=== PATIENT | male | born 1980 | race African-American/Black ===

== ENCOUNTER 2022-06-18 04:39 | Inpatient (IN) | payer BC, SELFPAY ==
[2022-06-18] VITALS (22 sets, daily range): BP systolic 110–150; BP diastolic 88–111; PULSE 76–100; RESP 16–22; TEMP 36.4–36.7; O2SAT 90–100; BMI 33.7; BMI 33.6
--- NOTE | 2022-06-18 04:43 | XR_ITS ---
PROCEDURE INFORMATION: Exam: XR Chest Exam date and time: 06/18/2022 5:45 AM Age: 42 years old Clinical indication: Shortness of breath; Additional info: Volume overload TECHNIQUE: Imaging protocol: Radiologic exam of the chest. Views: 1 view. COMPARISON: No relevant prior studies available. FINDINGS: Lungs: Mild prominence and indistinctness of the pulmonary vasculature centrally. Mild prominence of the interstitium diffusely suggest mild edema. Pleural spaces: Unremarkable. No pleural effusion. No pneumothorax. Heart/Mediastinum: Cardiomegaly. Bones/joints: Unremarkable. IMPRESSION: Mild edema reflected predominantly as interstitial prominence as described above. Consider follow-up two view chest.
--- NOTE | 2022-06-18 04:43 | ECG_ITS ---
APPROVED REPORT Exam: Resting ECG HR:89 bpm ECG Measurements Heart Rate 89 AXES KS 159 P 73 QRSd 109 QRS 71 QT 444 T -68 QTc 491 Conclusion SINUS RHYTHM WITH OCCASIONAL VENTRICULAR PREMATURE COMPLEXES POSSIBLE LEFT ATRIAL ENLARGEMENT [-0.1mV P-WAVE IN V1/V2] LEFT VENTRICULAR HYPERTROPHY AND ST-T CHANGE [VOLTAGE CRITERIA PLUS ST/T ABNORMALITY] abn ecg UNCONFIRMED REPORT Electronically signed by : Burak Friedman MD 06/18/2022 21:10:38
--- NOTE | 2022-06-18 04:48 | EXP.HP ---
History of Present Illness *Admission Date: 06/18/22 *Reason for visit:: Chest pain *History of present illness: This is a 42-year-old male who presents as a transfer from [place] for further evaluation of chest pain. He does have a history of congestive heart failure and hypertension reports 2 weeks of chest pain with associated nausea vomiting. He reports the chest pain was so severe today that he decided to seek treatment emergency department. He describes the pain as burning and is associate with nausea. He denies any palpitations, lightheadedness, diaphoresis with this continued pain. He reports seeing his medical educator in March and at that time they briefly talked about cardiac stents but no further instructions were given to him after leaving the office. He does endorse some orthopnea and dyspnea on exertion. Laboratory evaluation at the outside hospital significant for high-sensitivity troponin of 100 with uptrend to 200. He was also noted to have a proBNP of 15,000. Mild electrolyte abnormalities noted with potassium of 3.5 and magnesium of 1.7. He was started on heparin drip at the outside hospital and transferred here for further evaluation. [facility] Social History Smoking Status: Never smoker alcohol intake: never current occupational status: employed Travel in the last 8 weeks: None Review of Systems Constitutional Constitutional: Reports system reviewed and no additional complaints, except as documented Eyes Eyes: Reports system reviewed and no additional complaints, except as documented ENT Ears, Nose, Mouth, and Throat: Reports system reviewed and no additional complaints, except as documented *Cardiovascular Cardiovascular: Reports system reviewed and no additional complaints, except as documented *Respiratory Respiratory: Reports system reviewed and no additional complaints, except as documented *Gastrointestinal Gastrointestinal: Reports system reviewed and no additional complaints, except as documented *Genitourinary Genitourinary: Reports system reviewed and no additional complaints, except as documented *Musculoskeletal Musculoskeletal: Reports system reviewed and no additional complaints, except as documented Integumentary/Breasts Skin/Breast: Reports system reviewed and no additional complaints, except as documented *Neurologic Neurologic: Reports system reviewed and no additional complaints, except as documented Psychiatric Psychiatric: Reports system reviewed and no additional complaints, except as documented Endocrine Endocrine: Reports system reviewed and no additional complaints, except as documented Hematologic/Lymphatic Hematologic/Lymphatic: Reports system reviewed and no additional complaints, except as documented Allergic/Immunologic Allergic/Immunologic: Reports system reviewed and no additional complaints, except as documented Meds Home Medications and Allergies New Prescriptions to Start Prescriptions: Allergies Allergy/AdvReac Type Severity Reaction Status Date / Time No Known Allergies Allergy Verified 06/18/22 04:55 Exam *Routine HEENT Exam Head: Present normocephalic and atraumatic Eye: Present EOMI and PERRL ENT: Present mucous membranes moist *Routine Neck Exam Neck: Present supple and full ROM *Routine Respiratory Exam Respiratory: Present diminished air movement *Routine Cardiovascular Exam Cardiovascular: Present RRR, Normal S1 and Normal S2 *Routine Abdominal Exam Abdominal: Present soft and normoactive bowel sounds *Routine Rectal Exam Rectal:: deferred *Routine Genitalia Exam Genitalia:: deferred *Routine Extremities Exam Extremities: Present full ROM, pulses intact and normal capillary refill Comments: No edema noted *Routine Skin Exam Skin: Present intact and warm *Routine Neurological Exam Neurological: Present alert, oriented X3 and CN II-XII intact Assessment and Plan *Assessment and plan (1) Chest pain: Status: Acute Ca
--- NOTE | 2022-06-18 05:05 | PC.NURSE ---
pt arrived to floor via stretcher @ 5180.
[2022-06-18 05:18] LABS: Basophils # 0.2 K/mm3 (0-0.2); Basophils % 1.5 % (0.1-2.0); Eosinophils # 0.3 K/mm3 (0.0-0.4); Hematocrit 48.4 % (42.0-52.0); Hemoglobin 15.9 g/dL (14.1-18.0); Lymphocytes # 3.8 K/mm3 (0.7-4.5); Lymphocytes % 38.1 % (10-50); Mean Corpuscular HGB Conc 32.8 g/dL (31.8-35.4); Mean Corpuscular Hemoglobin 32.3 pg (27.0-31.2); Mean Corpuscular Volume 98.4 fl (80-94); Mean Platelet Volume 8.8 fl (7.4-10.4); Monocytes # 0.3 K/mm3 (0.1-1.0); Monocytes % 3.1 % (1.7-9.3); Neutrophils # 5.4 K/mm3 (1.8-7.8); Neutrophils % 54.4 % (37.0-80.0); Platelet Count 248 K/mm3 (142-424); Red Blood Count 4.92 M/mm3 (4.60-6.20); Red Cell Distribution Width 16.1 % (11.5-17.5); White Blood Count 9.9 K/mm3 (4.8-10.8)
[2022-06-18 05:26] LABS: Chloride 101 mmol/L (98-107)
[2022-06-18 05:27] LABS: Sodium 135 mmol/L (136-145)
[2022-06-18 05:29] LABS: Blood Urea Nitrogen 37 mg/dl (9-20); Creatinine Clearance Estimated 60 mL/min (50-200); Estimated Glomerular Filt Rate 29 ml/min (>60); GFR (African American) 35 ML/MIN (>60)
[2022-06-18 05:30] LABS: Calcium 9.2 mg/dl (8.4-10.2); Carbon Dioxide 27 mmol/L (22.0-30.0); Chol/HDL Ratio 3.5 (1-3.5); Cholesterol 164 mg/dl (140-200); Glucose 100 mg/dl (74-100); HDL Cholesterol 47 mg/dl (40-60); Magnesium 1.8 mg/dl (1.6-2.3); Triglycerides 86 mg/dl (30-150); VLDL Cholesterol 17 mg/dL (0-40)
[2022-06-18 05:31] LABS: INR 1.23 (0.9-1.1); Prothrombin Time 13.1 seconds (10.1-12.5)
[2022-06-18 05:33] LABS: PTT Heparin (inpatient only) 57.7 Seconds (23.6-34.0)
[2022-06-18 05:39] LABS: NT Pro Brain Natriuretic Pep. 15100 pg/mL (0-125)
[2022-06-18 05:43] LABS: Troponin I 0.37 ng/ml (0.00-0.034)
--- NOTE | 2022-06-18 07:21 | CA_ITS ---
APPROVED REPORT EXAM: Comprehensive 2D, Doppler, and color-flow Echocardiogram Pull Over Machine Operator: Veronica Marquez CRT Ht: 5 ft 10 in Wt: 241lbs BSA: 2.26 BP: 141/110 mmHg Indications: CAD, Hyperlipidemia, Hypertension/HDD, SMOKER, CHF, CP 2D Dimensions LVOT 2.02 cm (M/F) 1.5-2.5 LA Volume 85.10 mL LA Volume Index 36.80 mL/m2 (M/F) 16-34 M-Mode Dimensions RVDd 3.67 cm (0.9-2.6) LA Diam 5.43 cm (1.9-4.0) LVDd 7.14 cm (3.5-5.7) Ao Diam 3.51 cm (2.0-3.7) LVDs 6.56 cm (3.5-5.7) IVSd 1.61 cm (0.6-1.1) PWd 1.33 cm (0.6-1.1) EF (Teich) 17.40% FS 8.10% EDV (Teich) 267.10 mL TAPSE 0.77 (<1.7) ESV (Teich) 220.50 mL LV Diastology E Decel Time 73.00 (160-240 msec) E/A Ratio 2.71 MED E' 2.30 (< 7 cm/sec) MED A' 3.70 cm/s E'/MED E' Ratio 28.52 (>14) LAT E' 5.40 (<10 cm/sec) LAT A' 3.20 cm/s E/LAT E' Ratio 12.15 (>14) Aortic Valve AO Peak GR. 3.50 mmHg Mitral Valve MV E Max Chris. 66.00 (40-130 cm/s) MV A Velocity 24.00 (40-130 cm/s) E/A Ratio 2.71 MV Decel. Time 73.00 (160-240 ms) MV PHT 21.00 ms Pulmonary Valve PV Peak Velocity 178.00 (50-150 cm/s) Tricuspid Valve TR P. Velocity 283.00 cm/s RAP Estimate 10.00 mmHg RVSP 42.10 mmHg Left Ventricle Left atrium is moderately enlarged, left ventricle is moderately dilated, there is severe left ventricular systolic function, estimated ejection fraction 10 to 15% left ventricle is severely globally hypokinetic, Doppler evidence of low cardiac output state is seen. Right Ventricle Right atrium and right ventricle moderately enlarged, contractility of the right ventricle is moderately reduced. Aortic Valve Aortic valve is grossly normal there is no aortic stenosis or aortic insufficiency. Mitral Valve Mitral valve is grossly normal, there is moderate mitral regurgitation. Tricuspid Valve Tricuspid valve grossly normal, there is mild to moderate tricuspid regurgitation, calculated right ventricular systolic pressure is 45 mmHg. Pulmonic Valve Pulmonic valve is poorly visualized. Pulmonic outflow velocity is reduced suggestive of low cardiac output state. Great Vessels Aortic root is normal size. Inferior vena cava is dilated without significant inspiratory collapse. Pericardium Small pericardial effusion noted. Conclusion 1. Biatrial enlargement, dilated left ventricle, severely reduced left ventricular systolic function, estimated ejection fraction 10 to 15%, left ventricle is severely globally hypokinetic, Doppler evidence of low cardiac output state seen. 2. Moderately enlarged right ventricle with moderate reduction right ventricular systolic pressure. 3. Moderate mitral and mild to moderate tricuspid regurgitation, calculated right ventricular systolic pressure is 45 mmHg. 4. Small pericardial effusion noted. 5. Inferior vena cava is mildly dilated without significant inspiratory collapse. Electronically signed by : Rizwan Thomas MD 06/19/2022 06:31:13
--- NOTE | 2022-06-18 07:34 | EXP.CARD.CON ---
History of Present Illness History of Present Illness Consult date: 06/18/22 Requesting physician: Pearl Aguirre Consult reason: chest pain Chief complaint: chest pain, Nausea, Vomiting Additional Medical History:: 1. Hypertension, treated for many years A. Renal ultrasound, [facility], 04/2022, no obstruction. Hypertensive nephropathy noted. 2. Tobacco use 1/2 to 1 pack/day for many years 3. History of congestive heart failure A. Echocardiogram, 04/2022, [facility], EF 10-15% with global hypokinesis, grade 3 diastolic dysfunction, moderate RV enlargement with pulmonary artery end-diastolic pressure of 30 mmHg. Moderate MR. 4. Coronary calcium score of 2, 04/2022, [facility]. 5. History of Pfizer COVID vaccination, early 2020 6. Hyperlipidemia, LDL 80 this admission. On statin therapy. 7. Renal insufficiency with creatinine of 2.5 and GFR of 29, 06/18/2022 History of present illness: This is a 42-year-old male who presents as a transfer from [place] for further evaluation of chest pain.? He does have a history of congestive heart failure and hypertension reports 2 weeks of chest pain with associated nausea vomiting.? He reports the chest pain was so severe today that he decided to seek treatment emergency department.? He describes the pain as burning and is associate with nausea.? He denies any palpitations, lightheadedness, diaphoresis with this continued pain.? He reports seeing his r&d lab technician in March and at that time they briefly talked about cardiac stents but no further instructions were given to him after leaving the office.? He does endorse some orthopnea and dyspnea on exertion. Laboratory evaluation at the outside hospital significant for high-sensitivity troponin of 100 with uptrend to 200.? He was also noted to have a proBNP of 15,000.? Mild electrolyte abnormalities noted with potassium of 3.5 and magnesium of 1.7.? He was started on heparin drip at the outside hospital and transferred here for further evaluation. The above per RAKESH Johnson for the hospitalist service. 42-year-old black male transferred from [facility] for further evaluation of 2-week history of continuous chest pain starting on the left side with radiating to the right shoulder. He has noticed nausea, vomiting and approximately 25 pound weight loss over the last 2 months. He has had some relief of symptoms with [id number] antacids and occasionally with food. Somewhat of a difficult historian as patient drifts off to sleep easily. He relates being hospitalized at [facility] in either March or April with a heart cath at that time with reported discussion of possible cardiac stenting but was not performed at that time. He has not followed up with any r&d lab technician since then. He maintains compliance with his medication. He relates longstanding history of hypertension and reportedly has a history of congestive heart failure. Creatinine this admission is noted to be 2.5 and patient does relate knowledge of renal dysfunction but is unable to elaborate. He does smoke about half a pack per day. Denies any significant alcohol use. Denies illegal drug use. He is not diabetic. He is unsure of any family history of coronary artery disease. EKG this admission is sinus rhythm with probable left atrial enlargement and hypertensive heart disease with evidence of LVH and repolarization abnormalities. Initial troponin here is 0.37 with a creatinine of 2.5 and Potassium of 3.0 which has been treated with oral supplementation. BNP elevated at 15,100 with chest x-ray results pending. PFS PFS Medical History Coronary artery disease Elevated troponin Hyperlipidemia Renal insufficiency Tobacco use Social History (Updated 06/18/22 @ 05:07 by Ruba Kruger RN) Smoking Status: Former smoker years smoked: 15 alcohol intake: current current occupational status: employed Travel in
--- NOTE | 2022-06-18 07:45 | PC.NURSE ---
RN aware of elevated BP @ 04:46
--- NOTE | 2022-06-18 08:35 | HMH.PHAHEP ---
[facility] Pharmacy Heparin Dosing Demographic Data Admission date:: 06/18/22 Date: 06/18/22 Time: 08:36 Allergies Allergy/AdvReac Type Severity Reaction Status Date / Time No Known Allergies Allergy Verified 06/18/22 04:55 Height: 1.8 m Weight: 109.3 kg Indication Medication therapy:: Heparin Current Active Problems (Updated 06/18/22 @ 07:45 by HENRIK Wheatley) Elevated brain natriuretic peptide (BNP) level (Acute) Tobacco use (Acute) Elevated troponin (Acute) Coronary artery disease (Acute) Hyperlipidemia (Acute) Renal insufficiency (Acute) Hypertension (Acute) Congestive heart failure (Acute) Chest pain (Acute) CVA?: No Bleeding problem?: No Kidney disease?: No PA?: No Desired PTT range:: 50-75 seconds Labs Anticoagulation Lab Results:: 06/18/22 05:05 Hgb 15.9 Hct 48.4 Plt Count 248 Monitoring Dose Monitor 1: Date: 06/18/22 Time: 05:05 PTT Result:: 57.7 Infusion Rate:: 1,300 UNITS/HR Comment:: 4,000 UNIT BOLUS GIVEN AT [place] @ 0145 BASELINE PTT 24.5 AT [place] Dose Monitor 2: Date: 06/18/22 Time: 11:00 Comment:: HEPARIN DRIP STOPPED PER HUMAN RESOURCES OFFICER Core Measures Is INR > or = 2 at discharge?: No Most Recent Labs:: Laboratory Results - last 24 hr 06/18/22 05:05: WBC 9.9, RBC 4.92, Hgb 15.9, Hct 48.4, MCV 98.4 H, MCH 32.3 H, MCHC 32.8, RDW 16.1, Plt Count 248, MPV 8.8, Neut % (Auto) 54.4, Lymph % (Auto) 38.1, [place] % (Auto) 3.1, Eos % (Auto) 3.0, Baso % (Auto) 1.5, Neut # (Auto) 5.4, Lymph # (Auto) 3.8, [place] # (Auto) 0.3, Eos # (Auto) 0.3, Baso # (Auto) 0.2 06/18/22 05:05: PT 13.1 H, INR 1.23 H, APTT 57.7 H* 06/18/22 05:05: Sodium 135 L, Potassium 3.0 L, Chloride 101, Carbon Dioxide 27, Anion Gap 10.0, BUN 37 H, Creatinine 2.50 H, Estimated Creat Clear 60, Estimated GFR 29 L, Est GFR ( Amer) 35 L, Glucose 100, Calcium 9.2, Magnesium 1.8, Troponin I 0.37 H, NT-Pro-B Natriuret Pep 51563 H, Triglycerides 86, Cholesterol 164, LDL Cholesterol Direct 80.90 L, VLDL Cholesterol 17, HDL Cholesterol 47, Cholesterol/HDL Ratio 3.5 06/18/22 05:05: Hemoglobin A1c 6.0 Were Heparin and Warfarin started on the same day?: No If not, why?: STOPPED PER HUMAN RESOURCES OFFICER
[2022-06-18 09:23] LABS: Troponin I 0.63 ng/ml (0.00-0.034)
--- NOTE | 2022-06-18 09:31 | P.CONPHA_ITS ---
Pharmacy Intervention Comments: Medication reconciliation completed via patient interview and MAR from [facility] in [place], [place]. -Nanda Stiles, PharmD Candidate 2022
--- NOTE | 2022-06-18 09:31 | PC.NURSE ---
notified cardiology of critical lab result
--- NOTE | 2022-06-18 09:49 | IR_ITS ---
APPROVED REPORT Patient Location: Inpatient Special Police: DONALD Barakat RT (R) PROCEDURES Left heart catheterization Selective coronary angiogram INDICATION New onset cardiomyopathy ejection fraction 15 to 20%, Elevated troponin Informed consent was obtained prior to the procedure. COMPLICATIONS None Estimated Blood Loss: Less than 10 ml TECHNIQUE One percent lidocaine used to anesthetize the right anterior aspect of the wrist. The right radial artery was accessed via the Seldinger technique. A 6 Cypriot sheath was placed in the right radial artery. 2.5 mg of verapamil, 800 mcg of nitroglycerin, 1mg Lidocaine and 5000 U Heparin were given through the arterial sheath. The papa catheter was also used to perform left heart catheterization and selective coronary angiogram. At the end of the procedure the sheath was removed good hemostasis was achieved using Traclet band, patient was transferred to the postop holding area in stable condition. ANGIOGRAPHIC RESULTS The left main artery Normal The left anterior descending artery Mild proximal mid vessel and distal 10% luminal irregularities The circumflex artery Nondominant with mild diffuse 10% luminal regularities The right coronary artery Dominant with mild diffuse 10% luminal irregularities The MATHEW ventriculogram reveals Not performed The left ventricular end-diastolic pressure 40 mmHg IMPRESSION Mild nonocclusive coronary artery disease Severely elevated LVEDP consistent with decompensated systolic congestive heart failure likely from hypertensive heart disease PLAN 1. Patient's renal failure is almost certainly from hypertensive cardiomyopathy. Despite this it is still reasonable to consider an outpatient CMR 2. Restart YESSICA inhibitor's 3. Patient will benefit from loop diuretics and carvedilol 4. Consider LifeVest Electronically signed by : Esau Aguirre MD 06/18/2022 11:09:42
--- NOTE | 2022-06-18 10:39 | PC.NURSE ---
off floor with pathology laboratory technologist
[2022-06-18 12:06] LABS: Troponin I 1.02 ng/ml (0.00-0.034)
[2022-06-18 12:09] LABS: PTT Heparin (inpatient only) 131.8 Seconds (23.6-34.0)
--- NOTE | 2022-06-18 13:54 | PC.NURSE ---
RN aware of elevated bp.
--- NOTE | 2022-06-18 15:13 | P.EN_ITS ---
Patient was taken to the Operations Intelligence, which showed mild nonocclusive coronary artery disease. There is severely elevated LVEDP consistent with decompensated systolic congestive heart failure likely from hypertensive heart disease. Per cardiology recommendations renal failure is almost certainly from hypertensive cardiomyopathy despite this it is still reasonable to consider outpatient c ardiac MRI. We will restart YESSICA inhibitor, will add loop diuretics and carvedilol. Consider LifeVest. Patient will benefit from GDMT. Paroxysmal atrial fibrillation -Xarelto 15 mg daily Nonischemic cardiomyopathy likely hypertensive cardiomyopathy versus dilated cardiomyopathy -We will start Entresto twice daily -Coreg 25 twice daily -Lasix 40 twice daily -YESSICA inhibitor 5 mg -LifeVest on discharge
--- NOTE | 2022-06-18 20:49 | PC.NURSE ---
dr alexandra called regarding pt complaints of right shoulder pain, tender to touch, feels like it used to when pt was in the band, pt denies chest pain, pt feels more muscular pain, order for po oxycodone 5mg po x1 dose repeated and verified.
[2022-06-19] VITALS (9 sets, daily range): BP systolic 112–130; BP diastolic 77–95; PULSE 70–92; RESP 16–20; TEMP 36.4–36.8; O2SAT 92–97; BMI 33.3
--- NOTE | 2022-06-19 05:51 | PC.NURSE ---
pt rested well after dose of oxycodone given for complaints of shoulder pain, telemetry reveals NSR with prolonged qt and t wave inversion, pt is alert and oriented x4, right radial site dressing cdi, VSS, no acute distress, VSS, no other issues or concerns at this time noted.
--- NOTE | 2022-06-19 07:47 | EXP.DC.SUM ---
General Admission date:: 06/18/22 Discharge date: 06/20/22 HPI HPI HPI: This is a 42-year-old male who presents as a transfer from [place] for further evaluation of chest pain. He does have a history of congestive heart failure and hypertension reports 2 weeks of chest pain with associated nausea vomiting. He reports the chest pain was so severe today that he decided to seek treatment emergency department. He describes the pain as burning and is associate with nausea. He denies any palpitations, lightheadedness, diaphoresis with this continued pain. He reports seeing his parts data writer in March and at that time they briefly talked about cardiac stents but no further instructions were given to him after leaving the office. He does endorse some orthopnea and dyspnea on exertion. Laboratory evaluation at the outside hospital significant for high-sensitivity troponin of 100 with uptrend to 200. He was also noted to have a proBNP of 15,000. Mild electrolyte abnormalities noted with potassium of 3.5 and magnesium of 1.7. He was started on heparin drip at the outside hospital and transferred here for further evaluation. Hospital Course Hospital Course Hospital Course: 42-year-old male with severely reduced ejection fraction, acute on chronic systolic CHF.? Admitted for management of heart failure and hypertension.? Cardiology consulted, appreciate their recommendations.? Given severity of heart failure EF less than 15%, patient met criteria for LifeVest placement.? Problems during hospitalization as follows. Acute on chronic heart failure with reduced ejection fraction Chest pain Elevated troponin Hypertensive cardiomyopathy Hyperlipidemia -Cardiology was consulted on admission. Patient was taken to Collections Director for elevated troponin and concern for NSTEMI. oted to have patent coronary arteries. Severely reduced EF however with global hypokinesis. Echo obtained showing LV EF 10 to 15%.? Global hypokinesis of left ventricle. Started on goal-directed therapy to control heart rate, blood pressure, fluid management. Plan to continue carvedilol, Entresto, Lasix and spironolactone at discharge. Given reduced ejection fraction, initiated on Xarelto. Diuresed well during hospitalization. No oxygen requirement. Severity of heart failure meeting criteria for LifeVest. Placed prior to discharge. We will have close follow-up with cardiology for further evaluation to see if patient qualifies for an AICD or if he has marked improvement in his cardiac function over the coming weeks to months. Plan to continue statin therapy for hypercholesterolemia. CKD Hypertnsive nephropathy -Creatinine stable at 2.4-2.6 during admission. Needs repeat monitoring in a week with new HTN meds. At risk for hyperkalemia. Holding on potassium supplementation at discharge. In setting of spironolactone and ARNI usage, anticipate potassium to rise. Evaluate on repeat labs at follow-up with cardiology Patient fitted for LifeVest on day of discharge. Reviewed medications. Stable for discharge home. [facility] where his car is at. Provided with meds to beds discharge Exam Data for Last 24 hours Vital signs and Labs for Last 24 Hours: Temp Pulse Resp BP Pulse Ox 98.3 F 73 17 120/77 97 06/19/22 04:00 06/19/22 04:00 06/19/22 04:00 06/19/22 04:00 06/19/22 04:00 Laboratory Results - last 24 hr 06/18/22 08:15: Troponin I 0.63 H 06/18/22 11:20: Troponin I 1.02 H 06/18/22 11:20: APTT 131.8 H* I & O for Last 24 hours: Intake & Output 06/16/22 06/17/22 06/18/22 06/19/22 23:59 23:59 23:59 23:59 Intake Total 480 / 600 120 / 120 Output Total 250 / 250 400 / 400 Balance 230 / 350 -280 / -280 Weight 109.3 kg 108.153 kg Microbiology Reports for the Last 24 Hours: Microbiology 06/18/22 13:40 Nasopharyngeal Coronavirus COVID-19 PCR - Final Constitutional C
--- NOTE | 2022-06-19 08:15 | EXP.CARD.PN ---
Subjective Subjective Date: 06/19/22 Time: 08:16 Principal diagnosis: HFrEF Interval history: 42-year-old black male in bed in no acute distress states he is feeling much better after diuresis yesterday. Cardiac catheterization revealed nonischemic cardiomyopathy consistent with hypertensive cardiomyopathy. Ejection fraction 10-15%. We will pursue LifeVest approval today. Exam Data for Last 24 hours Vital signs and Labs for Last 24 Hours: Temp Pulse Resp BP Pulse Ox 97.7 F 79 16 130/92 H 96 06/19/22 07:49 06/19/22 07:49 06/19/22 07:49 06/19/22 07:49 06/19/22 07:49 Laboratory Results - last 24 hr 06/18/22 08:15: Troponin I 0.63 H 06/18/22 11:20: Troponin I 1.02 H 06/18/22 11:20: APTT 131.8 H* I & O for Last 24 hours: Intake & Output 06/16/22 06/17/22 06/18/22 06/19/22 11:59 11:59 11:59 11:59 Intake Total 960 / 960 Output Total 250 / 250 400 / 400 Balance -250 / -250 560 / 560 Weight 240 lb 15.444 oz 238 lb 7 oz Microbiology Reports for the Last 24 Hours: Microbiology 06/18/22 13:40 Nasopharyngeal Coronavirus COVID-19 PCR - Final Constitutional Constitutional: no acute distress *Routine Respiratory Exam Respiratory: Present decreased breath sounds and CTA bilaterally *Routine Cardiovascular Exam Cardiovascular: Present RRR; Absent murmur, gallop or rubs *Routine Extremities Exam Extremities: Absent cyanosis, clubbing or edema *Routine Neurological Exam Neurological: Present alert and oriented X3 Progress Note: A&P Assessment and plan (1) Renal insufficiency: Status: Acute (2) Elevated troponin: Status: Acute (3) Elevated brain natriuretic peptide (BNP) level: Status: Acute (4) Hyperlipidemia: Status: Acute (5) Coronary artery disease: Status: Acute (6) Tobacco use: Status: Acute (7) Acute on chronic HFrEF (heart failure with reduced ejection fraction): Status: Acute (8) Hypertensive heart disease: Status: Acute Assessment and Plan Assessment and Plan for All Diagnoses:: 1.? HFrEF, on Coreg, Entresto, Lasix and spironolactone. Pt is on anticoagulation with Xarelto for possible history of PAF but is also recommended due to markedly low EF. We will attempt to get LifeVest approved today due to EF of 10-15% with increased risk of sudden cardiac . 2.? Renal insufficiency secondary to hypertensive nephropathy. 3.? Hypertension with hypertensive heart disease 4. possible peptic ulcer disease.? Recommend starting PPI therapy. 5.? Hyperlipidemia, continue statin therapy 6.? Tobacco use, cessation recommended 7. Non-obstructive CAD, on ASA.
[2022-06-19 09:39] LABS: Basophils # 0.1 K/mm3 (0-0.2); Basophils % 1.1 % (0.1-2.0); Eosinophils # 0.2 K/mm3 (0.0-0.4); Eosinophils % 2.8 % (0.1-12.0); Hematocrit 47.3 % (42.0-52.0); Hemoglobin 15.6 g/dL (14.1-18.0); Lymphocytes % 37.8 % (10-50); Mean Corpuscular HGB Conc 32.9 g/dL (31.8-35.4); Mean Corpuscular Hemoglobin 32.9 pg (27.0-31.2); Mean Corpuscular Volume 99.9 fl (80-94); Mean Platelet Volume 9.5 fl (7.4-10.4); Monocytes # 0.3 K/mm3 (0.1-1.0); Monocytes % 3.5 % (1.7-9.3); Neutrophils # 4.3 K/mm3 (1.8-7.8); Neutrophils % 54.8 % (37.0-80.0); Platelet Count 242 K/mm3 (142-424); Red Blood Count 4.74 M/mm3 (4.60-6.20); Red Cell Distribution Width 16.1 % (11.5-17.5); White Blood Count 7.8 K/mm3 (4.8-10.8)
[2022-06-19 09:57] LABS: Chloride 102 mmol/L (98-107); Potassium 3.2 mmoL/L (3.5-5.1); Sodium 138 mmol/L (136-145)
[2022-06-19 10:00] LABS: Alanine Aminotransferase 34 U/L (12-78); Albumin Level 3.3 g/dl (3.5-5.0); Albumin/Globulin Ratio 1.4 (1.1-1.8); Alkaline Phosphatase 121 U/L (38-126); Anion Gap 11.2 mEq/L (5-15); Aspartate Amino Transferase 48 U/L (17-59); Bilirubin,Total 1.9 mg/dl (0.2-1.3); Blood Urea Nitrogen 36 mg/dl (9-20); Calcium 9.2 mg/dl (8.4-10.2); Carbon Dioxide 28 mmol/L (22.0-30.0); Creatinine Clearance Estimated 62 mL/min (50-200); Estimated Glomerular Filt Rate 30 ml/min (>60); GFR (African American) 36 ML/MIN (>60); Globulin 2.3 g/dL (1.3-3.2); Glucose 116 mg/dl (74-100); Phosphorous 3.7 mg/dl (2.5-4.5); Total Protein,Serum 5.6 g/dl (6.3-8.2)
[2022-06-19 10:01] LABS: Magnesium 1.7 mg/dl (1.6-2.3)
--- NOTE | 2022-06-19 14:52 | PC.NURSE ---
PT IS RESTING IN BED. ALERT AND ORIENTED X4. PT HAS BEEN AMBULATING TO THE BATHROOM AND AROUND THE ROOM WITH NO COMPLAINTS OF CP OR SOA. LUNG SOUNDS DIMINISHED. ABDOMEN SOFT/NON TENDER WITH ACTIVE BOWEL SOUNDS. PT IS STILL WAITING IN LIFE VEST BEFORE DISCHARGE. WILL CONTINUE TO MONITOR.
--- NOTE | 2022-06-19 16:07 | EXP.ACUTE.PN ---
Subjective *Date: 06/19/22 *Time: 17:17 Interval history: Patient feels better this morning. Denies chest pain. Shortness of breath with exertion but this is not new, at baseline. No oxygen requirement. Hemodynamically stable with well-controlled blood pressure. Denies nausea, vomiting, diarrhea. Afebrile. Medical Exam Vital signs and Labs for Last 24 Hours: Vital Signs Temp Pulse Pulse Resp BP Pulse Ox 06/19/22 15:17 97.6 F 91 H 17 113/80 96 06/19/22 12:00 78 06/19/22 11:06 97.9 F 76 18 121/84 92 L 06/19/22 08:00 76 06/19/22 07:49 97.7 F 79 16 130/92 H 96 06/19/22 00:00 85 06/18/22 20:00 90 06/19/22 04:00 75 06/19/22 04:00 98.3 F 73 17 120/77 97 06/18/22 20:00 94 L 06/19/22 00:00 98.0 F 92 H 18 128/95 H 95 06/18/22 20:00 97.8 F 98 H 18 139/97 H 94 L 06/18/22 18:25 84 18 135/95 H 94 L 06/18/22 17:25 90 20 125/96 H 93 L 06/18/22 16:25 98.1 F 81 18 110/96 H 93 L Intake and Output 06/19/22 06/19/22 06/19/22 07:59 15:59 23:59 Intake Total 480 / 840 360 / 840 Output Total 400 / 400 0 / 400 Balance 80 / 440 360 / 440 Intake: Intake, Oral Amount 480 / 840 360 / 840 Output: Output, Urine Amount 400 / 400 0 / 400 Other: Number of Unmeasured Voids 1 1 Weight 108.153 kg Patient Weight 06/19/22 23:59 Weight 108.153 kg Laboratory Results - last 24 hr 06/19/22 09:20: WBC 7.8, RBC 4.74, Hgb 15.6, Hct 47.3, MCV 99.9 H, MCH 32.9 H, MCHC 32.9, RDW 16.1, Plt Count 242, MPV 9.5, Neut % (Auto) 54.8, Lymph % (Auto) 37.8, [place] % (Auto) 3.5, Eos % (Auto) 2.8, Baso % (Auto) 1.1, Neut # (Auto) 4.3, Lymph # (Auto) 3.0, [place] # (Auto) 0.3, Eos # (Auto) 0.2, Baso # (Auto) 0.1 06/19/22 09:20: Sodium 138, Potassium 3.2 L, Chloride 102, Carbon Dioxide 28, Anion Gap 11.2, BUN 36 H, Creatinine 2.40 H, Estimated Creat Clear 62, Estimated GFR 30 L, Est GFR ( Amer) 36 L, Glucose 116 H, Calcium 9.2, Phosphorus 3.7, Magnesium 1.7, Total Bilirubin 1.9 H, AST 48, ALT 34, Alkaline Phosphatase 121, Total Protein 5.6 L, Albumin 3.3 L, Globulin 2.3, Albumin/Globulin Ratio 1.4 I & O for Labs for Last 24 Hours: Intake & Output 06/16/22 06/17/22 06/18/22 06/19/22 23:59 23:59 23:59 23:59 Intake Total 480 / 600 840 / 840 Output Total 250 / 250 400 / 400 Balance 230 / 350 440 / 440 Weight 109.3 kg 108.153 kg Microbiology Reports for the Last 24 Hours: Microbiology 06/18/22 13:40 Nasopharyngeal Coronavirus COVID-19 PCR - Final Constitutional: Present no acute distress and obese Head: Present atraumatic and normocephalic ENT: Present normal exam Neck: Present normal inspection Respiratory: Present CTA bilaterally and normal respiratory effort; Absent accessory muscle use, rhonchi, wheezes or crackles Cardiac: Present Reg Rate and Rhythm GI: Present soft and normal bowel sounds; Absent distention or tenderness Extremities: Present normal inspection and full ROM; Absent edema Skin: Present intact; Absent erythema Neuro: Present Grossly Intact, alert, awake, oriented x 3 and moves all extremities Assessment and Plan *Assessment and plan (1) Acute on chronic HFrEF (heart failure with reduced ejection fraction): Status: Acute Category: Medical Code(s): I50.23 - Acute on chronic systolic (congestive) heart failure (2) Chest pain: Status: Acute Category: Medical Code(s): R07.9 - Chest pain, unspecified (3) Tobacco use: Status: Chronic Category: Social Hx Code(s): Z72.0 - Tobacco use (4) Hyperlipidemia: Status: Chronic Category: Medical Code(s): E78.5 - Hyperlipidemia, unspecified (5) Hypertensive heart disease: Status: Chronic Category: Medical Code(s): I11.9 - Hypertensive heart disease without heart failure (6) Class 1 obesity: Status: Chronic Category: Medical Code(s): E66.
[2022-06-20] VITALS: BP 118/86; PULSE 80; PULSE 83; RESP 18; TEMP 36.7; O2SAT 98
[2022-06-20 04:00] VITALS: BP 137/97; PULSE 78; PULSE 80; RESP 17; TEMP 36.7; O2SAT 96
[2022-06-20 06:08] VITALS: BMI 33.3
[2022-06-20 07:35] LABS: Basophils # 0.1 K/mm3 (0-0.2); Basophils % 1.2 % (0.1-2.0); Eosinophils # 0.1 K/mm3 (0.0-0.4); Eosinophils % 1.3 % (0.1-12.0); Hematocrit 51.2 % (42.0-52.0); Hemoglobin 16.1 g/dL (14.1-18.0); Lymphocytes # 2.4 K/mm3 (0.7-4.5); Lymphocytes % 29.3 % (10-50); Mean Corpuscular HGB Conc 31.5 g/dL (31.8-35.4); Mean Corpuscular Hemoglobin 32.7 pg (27.0-31.2); Mean Corpuscular Volume 103.7 fl (80-94); Mean Platelet Volume 9.6 fl (7.4-10.4); Monocytes # 0.3 K/mm3 (0.1-1.0); Monocytes % 3.9 % (1.7-9.3); Neutrophils # 5.3 K/mm3 (1.8-7.8); Neutrophils % 64.2 % (37.0-80.0); Platelet Count 257 K/mm3 (142-424); Red Blood Count 4.94 M/mm3 (4.60-6.20); Red Cell Distribution Width 16.1 % (11.5-17.5); White Blood Count 8.2 K/mm3 (4.8-10.8)
[2022-06-20 07:48] LABS: Alanine Aminotransferase 31 U/L (12-78); Albumin Level 3.3 g/dl (3.5-5.0); Albumin/Globulin Ratio 1.3 (1.1-1.8); Alkaline Phosphatase 121 U/L (38-126); Anion Gap 7.6 mEq/L (5-15); Aspartate Amino Transferase 43 U/L (17-59); Bilirubin,Total 1.7 mg/dl (0.2-1.3); Blood Urea Nitrogen 39 mg/dl (9-20); Calcium 8.9 mg/dl (8.4-10.2); Carbon Dioxide 24 mmol/L (22.0-30.0); Chloride 105 mmol/L (98-107); Creatinine Clearance Estimated 57 mL/min (50-200); Estimated Glomerular Filt Rate 27 ml/min (>60); GFR (African American) 33 ML/MIN (>60); Globulin 2.6 g/dL (1.3-3.2); Glucose 110 mg/dl (74-100); Phosphorous 3.4 mg/dl (2.5-4.5); Potassium 3.6 mmoL/L (3.5-5.1); Sodium 133 mmol/L (136-145); Total Protein,Serum 5.9 g/dl (6.3-8.2)
[2022-06-20 08:00] VITALS: BP 134/98; PULSE 78; PULSE 80; RESP 18; TEMP 36.6; O2SAT 97
--- NOTE | 2022-06-20 09:42 | EXP.CARD.PN ---
Subjective Subjective Date: 06/20/22 Time: 09:42 Principal diagnosis: HFrEF Interval history: 42-year-old black male head bedside in no acute distress. No complaints of chest pain, pressure or tightness. Telemetry shows no further arrhythmias overnight. Patient is anxious to go home. Exam Data for Last 24 hours Vital signs and Labs for Last 24 Hours: Temp Pulse Resp BP Pulse Ox 97.8 F 78 18 134/98 H 97 06/20/22 08:00 06/20/22 08:00 06/20/22 08:00 06/20/22 08:00 06/20/22 08:00 Laboratory Results - last 24 hr 06/19/22 09:20: Sodium 138, Potassium 3.2 L, Chloride 102, Carbon Dioxide 28, Anion Gap 11.2, BUN 36 H, Creatinine 2.40 H, Estimated Creat Clear 62, Estimated GFR 30 L, Est GFR ( Amer) 36 L, Glucose 116 H, Calcium 9.2, Phosphorus 3.7, Magnesium 1.7, Total Bilirubin 1.9 H, AST 48, ALT 34, Alkaline Phosphatase 121, Total Protein 5.6 L, Albumin 3.3 L, Globulin 2.3, Albumin/Globulin Ratio 1.4 06/20/22 07:24: WBC 8.2, RBC 4.94, Hgb 16.1, Hct 51.2, MCV 103.7 H, MCH 32.7 H, MCHC 31.5 L, RDW 16.1, Plt Count 257, MPV 9.6, Neut % (Auto) 64.2, Lymph % (Auto) 29.3, [place] % (Auto) 3.9, Eos % (Auto) 1.3, Baso % (Auto) 1.2, Neut # (Auto) 5.3, Lymph # (Auto) 2.4, [place] # (Auto) 0.3, Eos # (Auto) 0.1, Baso # (Auto) 0.1 06/20/22 07:24: Sodium 133 L, Potassium 3.6, Chloride 105, Carbon Dioxide 24, Anion Gap 7.6, BUN 39 H, Creatinine 2.60 H, Estimated Creat Clear 57, Estimated GFR 27 L, Est GFR ( Amer) 33 L, Glucose 110 H, Calcium 8.9, Phosphorus 3.4, Total Bilirubin 1.7 H, AST 43, ALT 31, Alkaline Phosphatase 121, Total Protein 5.9 L, Albumin 3.3 L, Globulin 2.6, Albumin/Globulin Ratio 1.3 I & O for Last 24 hours: Intake & Output 06/17/22 06/18/22 06/19/22 06/20/22 11:59 11:59 11:59 11:59 Intake Total 960 / 960 840 / 840 Output Total 250 / 250 400 / 400 600 / 600 Balance -250 / -250 560 / 560 240 / 240 Weight 240 lb 15.444 oz 238 lb 7 oz 238 lb 2 oz Constitutional Constitutional: no acute distress *Routine Respiratory Exam Respiratory: Present CTA bilaterally *Routine Cardiovascular Exam Cardiovascular: Present RRR *Routine Extremities Exam Extremities: Absent cyanosis, clubbing or edema *Routine Neurological Exam Neurological: Present alert, oriented X3 and CN II-XII intact Progress Note: A&P Assessment and plan (1) Acute on chronic HFrEF (heart failure with reduced ejection fraction): Status: Acute (2) Tobacco use: Status: Chronic (3) Hyperlipidemia: Status: Chronic (4) Hypertensive heart disease: Status: Chronic (5) Class 1 obesity: Status: Chronic (6) Nonsustained ventricular tachycardia: Status: Acute (7) Renal insufficiency: Status: Acute (8) Elevated troponin: Status: Acute (9) Elevated brain natriuretic peptide (BNP) level: Status: Acute (10) Coronary artery disease: Status: Acute Assessment and Plan Assessment and Plan for All Diagnoses:: 1.? HFrEF, on Coreg, Entresto, Lasix and spironolactone. Pt is on anticoagulation with Xarelto for possible history of PAF but is also recommended due to markedly low EF. Awaiting for LifeVest to be approved due to EF of 10-15% with increased risk of sudden cardiac . 2.? Renal insufficiency secondary to hypertensive nephropathy. 3.? Hypertension with hypertensive heart disease 4. possible peptic ulcer disease.? On PPI therapy. 5.? Hyperlipidemia, continue statin therapy 6.? Tobacco use, cessation recommended 7. Non-obstructive CAD, on ASA. 8. Nonsustained ventricular tachycardia, on carvedilol therapy. Discussed the case with electrophysiology who recommended continue medical therapy with LifeVest. Patient does not meet requirements for ICD implantation at this time
[2022-06-20 11:47] VITALS: BP 133/98; PULSE 79; RESP 16; TEMP 36.9; O2SAT 96
[2022-06-20 12:00] VITALS: PULSE 80
--- NOTE | 2022-06-20 13:32 | P.CONPHA_ITS ---
Pharmacy Intervention Comments: Discharge counseling completed at bedside with patient. Discussed new medications (aspirin, carvedilol increased dose, sacubatril-valsartan, xarelto, and spironolactone), continued medications, and discontinued medications. Overviewed indication and possible side effects/mitigation strategies for each n ew medication. Patient verbalized understanding and has no questions or concerns at this time.
--- NOTE | 2022-06-20 16:06 | PC.NURSE ---
Addendum entered by Cassia Huddleston RN 06/20/22 16:08: this information was called to [employer] Original Note: 2 valid phone numbers and address needed for [employer] for lifevest: [phone] [facility] [place] [facility] [address]
--- NOTE | 2022-06-21 13:25 | CARE MANAGER ---
Spoke with patient for post-discharge phone interiew, patient states that he is well. He did indicate that the insurance company denied his lifevest, he is talking with Dr. Aguirre office regarding this. Patient is aware of his follow-up appointment.
== END 2022-06-20 16:15 | disposition home or self-care (01) | DRG 286 ==
PROVIDERS: Internal Medicine; Nurse Practitioner Acute Care; Admitting Provider Student in an Organized Health Care Education/Training Program; Visit Provider Student in an Organized Health Care Education/Training Program
PROC: 4A023N7 Measurement of Cardiac Sampling and Pressure, Left Heart, Percutaneous Approach (ICD-10-PCS; principal; 2022-06-18 13:00)
DX: I50.23 Acute on chronic systolic (congestive) heart failure; I13.0 Hypertensive heart and chronic kidney disease with heart failure and stage 1 through stage 4 chronic kidney disease, or unspecified chronic kidney disease; I47.20 Ventricular tachycardia, unspecified; I25.118 Atherosclerotic heart disease of native coronary artery with other forms of angina pectoris; I42.9 Cardiomyopathy, unspecified; E78.5 Hyperlipidemia, unspecified; N18.9 Chronic kidney disease, unspecified; Z79.01 Long term (current) use of anticoagulants; Z79.899 Other long term (current) drug therapy; I48.0 Paroxysmal atrial fibrillation
CPT/HCPCS: 36415; 71045; 80048; 80053; 80061; 83036; 83735; 83880; 84100; 84484; 85025; 85610; 85730; 93005; 93306; 93458; 99152; C1725; C1769; C9803; J1644; J2405; Q9967; U0003; U0005

== ENCOUNTER 2022-07-13 10:25 | Observation (INO) | payer BC, SELFPAY ==
[2022-07-13] VITALS (12 sets, daily range): BP systolic 129–146; BP diastolic 88–104; PULSE 78–86; RESP 17–18; TEMP 36.4–37.7; O2SAT 98–100; BMI 33.6; BMI 34.3
--- NOTE | 2022-07-13 10:28 | HMH.EDGENADL ---
Discharge Plan Disposition Patient Disposition: Admitted as Observation Condition: Good Chief Complaint: Skin/Abscess/Foreign Body Prescriptions Prescriptions: No Action carvedilol 25 mg tablet 37.5 mg PO BID furosemide 40 mg Tablet 80 mg PO DAILY atorvastatin 20 mg Tablet 20 mg PO HS sennosides-docusate sodium 8.6-50 mg Tablet 1 tab PO DAILYP PRN (Reason: Constipation) aspirin 81 mg Tablet,Delayed Release (Dr/Ec) 81 mg PO DAILY Qty: 30 0RF spironolactone 25 mg Tablet 25 mg PO DAILY 30 Days Qty: 30 0RF Xarelto 15 mg Tablet 15 mg PO QPMWITHMEAL 30 Days Qty: 30 0RF Entresto 97-103 mg tablet 1 tab PO BID Qty: 60 0RF Referrals Follow up/Referrals: Provider,Referral, MD [Primary Care Provider] - See instructions Clinical Impressions Clinical Impression: Cellulitis, Hypokalemia Instructions Patient Instructions: DI for Skin Abscess Discharge ED Provider: Benito Rivas General Adult HPI General Chief complaint: Skin/Abscess/Foreign Body Stated complaint: leg swelling Time Seen by Provider: 07/13/22 10:29 Mode of Arrival: EMS Source of Information: Patient Limitations: No Limitations History of Present Illness HPI narrative: 42yo M with extensive past medical history presents to the emergency department secondary to 5 days of left lower extremity swelling, pain, erythema. No history of blood clots/DVT/pulmonary embolism and maintained on DOAC. Reports good medical compliance. States pain was worse today and decided to be evaluated. No shortness of breath or chest pain. No recent febrile illness. Related Data Home Medications Medication Instructions Recorded Confirmed atorvastatin 20 mg tablet 20 mg PO HS High cholesterol 06/18/22 07/02/22 furosemide 40 mg tablet 80 mg PO DAILY Fluid 06/18/22 07/02/22 sennosides 8.6 mg-docusate sodium 1 tab PO DAILYP PRN Constipation 06/18/22 07/02/22 50 mg tablet carvedilol 25 mg tablet 37.5 mg PO BID heart 07/13/22 07/13/22 Previous Rx's Medication Instructions Recorded aspirin 81 mg tablet,delayed 81 mg PO DAILY #30 tabs 06/19/22 release rivaroxaban 15 mg tablet (Xarelto) 15 mg PO QPMWITHMEAL 30 days #30 06/19/22 tabs sacubitril 97 mg-valsartan 103 mg 1 tab PO BID #60 tabs 06/19/22 tablet (Entresto) spironolactone 25 mg tablet 25 mg PO DAILY 30 days #30 tabs 06/19/22 Allergies Allergy/AdvReac Type Severity Reaction Status Date / Time No Known Allergies Allergy Verified 07/02/22 12:09 [facility] Disclaimer: The information contained in this section may have been updated after the patient was seen, as this information can be updated by other users. Medical History Coronary artery disease Elevated troponin Hyperlipidemia Renal insufficiency Tobacco use Surgical History History of cardiac catheterization Social History Smoking Status: Former smoker years smoked: 15 alcohol intake: current current occupational status: employed Travel in the last 8 weeks: None ROS Obtained: Yes Systems reviewed as appropriate & no additional complaints except as documented Physical Exam General General appearance: alert and in no apparent distress Head Head exam: atraumatic Eye Eye exam: Present normal appearance and PERRL ENT ENT exam: Present normal exam Neck Neck exam: Present normal inspection and trachea midline Chest Chest inspection: Present symmetric chest wall rise Respiratory Respiratory exam: Present normal lung sounds bilaterally Cardiovascular Cardiovascular exam: Present regular rate and normal rhythm Abdominal Exam Abdominal exam: Present soft; Absent distention Extremities Exam Extremities exam: Present other (2+ edema right lower extremity. 3+ edema left lower extremity. Tender to palpate left lower extremity. Erythema and warmth left lower extremity) Neurolo
--- NOTE | 2022-07-13 10:53 | CA_ITS ---
FINAL REPORT TECHNIQUE: Ultrasound images of the deep venous system were obtained from the left groin to the calf veins. CLINICAL HISTORY: edema, hot to touch,tender, Xarelto , smoker FINDINGS: The deep venous system is normally compressible. Normal flow is identified. There are enlarged left inguinal lymph nodes, nonspecific. IMPRESSION: No evidence of left lower extremity DVT. Reviewed, Interpreted and Dictated by Kingston Kulkarni III, MD Transcribed by Everette Augustine Authenticated and [facility]
--- NOTE | 2022-07-13 11:08 | PC.NURSE ---
Helped patient into gown for US
[2022-07-13 11:34] LABS: Basophils % 0.3 % (0.1-2.0); Eosinophils # 0.1 K/mm3 (0.0-0.4); Hematocrit 43.2 % (42.0-52.0); Hemoglobin 14.1 g/dL (14.1-18.0); Lymphocytes # 1.5 K/mm3 (0.7-4.5); Lymphocytes % 10.7 % (10-50); Mean Corpuscular HGB Conc 32.6 g/dL (31.8-35.4); Mean Corpuscular Hemoglobin 32.9 pg (27.0-31.2); Mean Corpuscular Volume 100.7 fl (80-94); Mean Platelet Volume 9.5 fl (7.4-10.4); Monocytes # 0.3 K/mm3 (0.1-1.0); Monocytes % 2.4 % (1.7-9.3); Neutrophils # 12.1 K/mm3 (1.8-7.8); Neutrophils % 85.6 % (37.0-80.0); Platelet Count 212 K/mm3 (142-424); Red Blood Count 4.29 M/mm3 (4.60-6.20); White Blood Count 14.1 K/mm3 (4.8-10.8)
[2022-07-13 11:38] LABS: Chloride 103 mmol/L (98-107); Potassium 3.1 mmoL/L (3.5-5.1); Sodium 135 mmol/L (136-145)
--- NOTE | 2022-07-13 11:40 | PC.NURSE ---
CV lab staff at for doppler
[2022-07-13 11:41] LABS: Alanine Aminotransferase 36 U/L (12-78); Albumin Level 3.4 g/dl (3.5-5.0); Albumin/Globulin Ratio 1.2 (1.1-1.8); Alkaline Phosphatase 209 U/L (38-126); Anion Gap 13.1 mEq/L (5-15); Aspartate Amino Transferase 67 U/L (17-59); Bilirubin,Total 3.5 mg/dl (0.2-1.3); Blood Urea Nitrogen 36 mg/dl (9-20); Carbon Dioxide 22 mmol/L (22.0-30.0); Creatinine Clearance Estimated 56 mL/min (50-200); Estimated Glomerular Filt Rate 26 ml/min (>60); GFR (African American) 32 ML/MIN (>60); Globulin 2.9 g/dL (1.3-3.2); MANUAL DIFFERENTIAL MANUAL DIFFERENTIAL (MANUAL DIFF); Total Protein,Serum 6.3 g/dl (6.3-8.2)
[2022-07-13 11:42] LABS: Glucose 88 mg/dl (74-100)
[2022-07-13 11:50] LABS: Lymphocytes % 9 % (10-50); Monocytes % 2 % (2-9); Neutrophils % 89 % (42-76); Total Cells Counted 100
[2022-07-13 11:51] LABS: Anisocytosis 1+; Hypochromasia 1+; Macrocytosis 1+; Ovalocytes 1+; Platelet Estimate Normal
--- NOTE | 2022-07-13 12:09 | PC.NURSE ---
on the phone with
--- NOTE | 2022-07-13 12:11 | PC.NURSE ---
notified care management of admission
--- NOTE | 2022-07-13 12:19 | PC.NURSE ---
Notified floor of pt admission, pt will be going to room 208
[2022-07-13 12:29] LABS: Coronavirus 19, PCR Not Detected (NotDetected); Influenza A, PCR Not Detected (NotDetected); Influenza B, PCR Not Detected (NotDetected)
--- NOTE | 2022-07-13 13:20 | PC.NURSE ---
contacted hospitalist phone, dr. metcalf in a meeting, will call back
--- NOTE | 2022-07-13 13:25 | PC.NURSE ---
pt eating lunch tray
--- NOTE | 2022-07-13 13:54 | PC.NURSE ---
spoke with dr. metcalf at this time, states will be placing admission orders
--- NOTE | 2022-07-13 13:57 | PC.NURSE ---
attempted to call report, second floor nurse states will call back
--- NOTE | 2022-07-13 14:12 | PC.NURSE ---
report called to tung salinas on second floor
--- NOTE | 2022-07-13 14:43 | PC.NURSE ---
arrived to floor by wheelchair
--- NOTE | 2022-07-13 15:26 | XR_ITS ---
FINAL REPORT CLINICAL HISTORY: CHF COMPARISON: 06/18/2022 FINDINGS: SINGLE-VIEW CHEST There is cardiomegaly. There is an elevated right hemidiaphragm. There are persistent but improved mild basilar opacities, favor atelectasis. There is no pneumothorax. IMPRESSION: Persistent but improved basilar opacities. Reviewed, Interpreted and Dictated by Kingston Kulkarni III, MD Transcribed by Celina Conn Authenticated and [facility]
--- NOTE | 2022-07-13 15:42 | EXP.HP ---
History of Present Illness *Admission Date: 07/13/22 *Reason for visit:: Left leg pain and swelling *History of present illness: Patient is a 42-year-old -Cypriot male with past medical history of systolic heart failure (EF 10-15%), CKD (baseline 2.5), prediabetes who comes to the ER for left leg swelling and pain for the past 5 days. Patient reports pain has gotten progressively worse to the point where he cannot stand on his leg. He denies any fever, chills, fatigue, he does have occasional nausea. Patient's only other complaint is some pain in his right shoulder. [facility] Disclaimer: The information contained in this section may have been updated after the patient was seen, as this information can be updated by other users. Medical History Coronary artery disease Elevated troponin Hyperlipidemia Renal insufficiency Tobacco use Surgical History History of cardiac catheterization Family History (Updated 07/13/22 @ 15:02 by Magali Mattson RN) Other Diabetes Family history of acute congestive heart failure Family history of hyperlipidemia Family history of hypertension Family history of myocardial infarction Social History (Updated 07/13/22 @ 15:03 by Magali Mattson RN) Smoking Status: Former smoker years smoked: 15 alcohol intake: current current occupational status: employed Travel in the last 8 weeks: None Review of Systems Constitutional Constitutional: Denies body ache(s), Denies chills, Denies fatigue, Denies fever(s), Denies lethargy and Denies weakness Eyes Eyes: Denies change in vision ENT Ears, Nose, Mouth, and Throat: Denies change in voice and Denies dysphagia *Cardiovascular Cardiovascular: Denies chest pain, Denies chest pain at rest, Denies chest pain with activity, Reports claudication, Denies dyspnea, Denies dyspnea on exertion, Denies edema, Denies irregular heart rhythm, Reports leg edema and Denies palpitations *Respiratory Respiratory: Denies chest congestion, Denies cough, Denies dyspnea, Denies dyspnea on exertion and Denies hemoptysis *Gastrointestinal Gastrointestinal: Denies abdominal pain, Denies diarrhea, Denies dyspepsia, Denies dysphagia, Denies heartburn, Denies loose stools and Reports nausea Integumentary/Breasts Skin/Breast: Denies change in pigmentation, Reports dry skin and Denies new lesions Comments: Dry, flaking skin on soles of both feet *Neurologic Neurologic: Denies abnormal movements, Denies abnormal speech, Denies behavioral changes, Denies confusion, Denies convulsions, Denies localized weakness, Denies other visual disturbances and Denies weakness Psychiatric Psychiatric: Denies anxiety, Denies behavioral changes, Denies confusion, Denies depression and Denies mood swings Endocrine Endocrine: Denies fatigue and Denies palpitations Meds Home Medications and Allergies Home Medications Medication Instructions Recorded Confirmed Type atorvastatin 20 mg tablet 20 mg PO HS High cholesterol 06/18/22 07/13/22 History furosemide 40 mg tablet 80 mg PO DAILY Fluid 06/18/22 07/13/22 History sennosides 8.6 mg-docusate sodium 1 tab PO DAILYP PRN Constipation 06/18/22 07/13/22 History 50 mg tablet aspirin 81 mg tablet,delayed 81 mg PO DAILY heart health 07/13/22 07/13/22 History release carvedilol 25 mg tablet 25 mg PO BID heart 07/13/22 07/13/22 History rivaroxaban 15 mg tablet (Xarelto) 15 mg PO QPMWITHMEAL blood thinner 07/13/22 07/13/22 History sacubitril 97 mg-valsartan 103 mg 1 tab PO BID Heart failure 07/13/22 07/13/22 History tablet (Entresto) spironolactone 25 mg tablet 25 mg PO DAILY diuretic 07/13/22 07/13/22 History New Prescriptions to Start Prescriptions: Allergies Allergy/AdvReac Type Severity Reaction Status Date / Time No Known Allergies Allergy Verified 07/02/22 12:09 Exam Data for Last 24 hours Vital signs and Labs for Last 24 Hours: Temp Pulse Resp
[2022-07-13 17:15] LABS: Troponin I 0.03 ng/ml (0.00-0.034)
--- NOTE | 2022-07-13 20:34 | EXP.PN ---
Subjective *Date: 07/14/22 *Time: 15:03 Interval history: leg pain level 8 , shoulder pain 6 of 10 Exam Data for Last 24 hours Vital signs and Labs for Last 24 Hours: Temp Pulse Resp BP Pulse Ox 99.8 F H 86 18 129/88 99 07/13/22 15:02 07/13/22 16:03 07/13/22 15:02 07/13/22 15:02 07/13/22 15:02 Laboratory Results - last 24 hr 07/13/22 11:26: WBC 14.1 H, RBC 4.29 L, Hgb 14.1, Hct 43.2, MCV 100.7 H, MCH 32.9 H, MCHC 32.6, RDW 17.0, Plt Count 212, MPV 9.5, Neut % (Auto) 85.6 H, Lymph % (Auto) 10.7, [place] % (Auto) 2.4, Eos % (Auto) 1.0, Baso % (Auto) 0.3, Neut # (Auto) 12.1 H, Lymph # (Auto) 1.5, [place] # (Auto) 0.3, Eos # (Auto) 0.1, Baso # (Auto) 0.0, Total Counted 100, Neutrophils % (Manual) 89 H, Lymphocytes % (Manual) 9 L, Monocytes % (Manual) 2, Platelet Estimate Normal, Hypochromasia 1+, Anisocytosis 1+, Macrocytosis 1+, Ovalocytes 1+ 07/13/22 11:26: Sodium 135 L, Potassium 3.1 L, Chloride 103, Carbon Dioxide 22, Anion Gap 13.1, BUN 36 H, Creatinine 2.70 H, Estimated Creat Clear 56, Estimated GFR 26 L, Est GFR ( Amer) 32 L, Glucose 88, Calcium 9.0, Total Bilirubin 3.5 H, AST 67 H, ALT 36, Alkaline Phosphatase 209 H, Total Protein 6.3, Albumin 3.4 L, Globulin 2.9, Albumin/Globulin Ratio 1.2 07/13/22 12:22: SARS-CoV-2 (PCR) Not detected, Influenza A Untype (PCR) Not detected, Influenza Type B (PCR) Not detected 07/13/22 16:21: Troponin I 0.03 I & O for Last 24 hours: Intake & Output 12/07/11/22 07/12/22 07/13/22 23:59 23:59 23:59 23:59 Intake Total 360 / 360 Output Total 250 / 250 Balance 110 / 110 Weight 111.697 kg *Routine Extremities Exam Extremities: Present edema, full ROM and tenderness Comments: left leg . warm to hot worse in lower portion. pain from mid thigh to foot. . also some left shoulder pain . *Routine Skin Exam Skin: Present intact and dry Comments: left lower leg , no signs of injury or lacerations. skin intact . he is a dark skin male so not able to evaluate erythema well Additional findings Additional findings: alert friendly , good historian, we reviewed history looking for source of leg pain. none found. Assessment and Plan *Assessment and plan (1) Lower extremity pain, left: Status: Acute Category: Medical Code(s): M79.605 - Pain in left leg Plan will use tylenol , and recheck for pain level in one hour Rounded on patient after nurse practitioner. Personally examined and interviewed patient. Agree with exam findings and plan of care findings as documented.
--- NOTE | 2022-07-13 21:30 | PC.NURSE ---
PATIENT C/O RIGHT SHOULDER PAIN THROBBING CONTINUOUS 12/29. ALSO C/O THROBBING PAIN IN LEFT LEG 02/28. RECIEVED TYLENOL EARLIER ON DAY SHIFT WHICH HELPED SOME. HENRIK EASTMAN NOTIFIED AND CAME TO SEE PATIENT. ORDER TO CONTINUE TYLENOL FOR NOW.
[2022-07-14] VITALS (7 sets, daily range): BP systolic 118–141; BP diastolic 76–105; PULSE 60–82; RESP 16–20; TEMP 36.4–37.1; O2SAT 94–100; BMI 35.2
--- NOTE | 2022-07-14 06:44 | PC.NURSE ---
patient reporting right shoulder pain and pain in LLE. RECEIVED RELIEF WITH MORHINE 2 MG IVP AT 0130.
[2022-07-14 07:38] LABS: Basophils # 0.1 K/mm3 (0-0.2); Basophils % 0.4 % (0.1-2.0); Eosinophils # 0.2 K/mm3 (0.0-0.4); Eosinophils % 1.7 % (0.1-12.0); Hematocrit 42.6 % (42.0-52.0); Lymphocytes % 15.4 % (10-50); Mean Corpuscular HGB Conc 32.8 g/dL (31.8-35.4); Mean Corpuscular Hemoglobin 32.9 pg (27.0-31.2); Mean Corpuscular Volume 100.1 fl (80-94); Mean Platelet Volume 9.5 fl (7.4-10.4); Monocytes # 0.5 K/mm3 (0.1-1.0); Monocytes % 3.5 % (1.7-9.3); Neutrophils # 10.2 K/mm3 (1.8-7.8); Neutrophils % 79.1 % (37.0-80.0); Platelet Count 204 K/mm3 (142-424); Red Blood Count 4.26 M/mm3 (4.60-6.20); White Blood Count 12.8 K/mm3 (4.8-10.8)
--- NOTE | 2022-07-14 07:46 | ECG_ITS ---
APPROVED REPORT Exam: Resting ECG HR:79 bpm ECG Measurements Heart Rate 79 AXES CA 167 P 60 QRSd 117 QRS -14 QT 436 T 183 QTc 471 Conclusion SINUS RHYTHM Left atrial abnormality Nonspecific IV conduction delay ABNORMAL ECG UNCONFIRMED REPORT Electronically signed by : Burak Friedman MD 07/14/2022 12:10:42
[2022-07-14 09:01] LABS: Chloride 103 mmol/L (98-107); Potassium 3.3 mmoL/L (3.5-5.1); Sodium 135 mmol/L (136-145)
[2022-07-14 09:03] LABS: Blood Urea Nitrogen 32 mg/dl (9-20); Creatinine Clearance Estimated 65 mL/min (50-200); Estimated Glomerular Filt Rate 30 ml/min (>60); GFR (African American) 36 ML/MIN (>60)
[2022-07-14 09:04] LABS: Alanine Aminotransferase 28 U/L (12-78); Albumin/Globulin Ratio 1.2 (1.1-1.8); Alkaline Phosphatase 162 U/L (38-126); Anion Gap 14.3 mEq/L (5-15); Aspartate Amino Transferase 41 U/L (17-59); Bilirubin,Total 2.8 mg/dl (0.2-1.3); Calcium 8.9 mg/dl (8.4-10.2); Carbon Dioxide 21 mmol/L (22.0-30.0); Globulin 2.5 g/dL (1.3-3.2); Glucose 81 mg/dl (74-100); Magnesium 1.9 mg/dl (1.6-2.3); Total Protein,Serum 5.5 g/dl (6.3-8.2)
--- NOTE | 2022-07-14 09:45 | PC.NURSE ---
Notified Dr. Aguirre of consult on patient.
--- NOTE | 2022-07-14 11:58 | EXP.PHA.CONS ---
Pharmacy Consult Date: 07/14/22 Time: 11:58 Referring provider: DR. OLSEN Reason for Consult:: VANCOMYCIN DOSING Allergies Allergy/AdvReac Type Severity Reaction Status Date / Time No Known Allergies Allergy Verified 07/02/22 12:09 Home Medications Medication Instructions Recorded Confirmed Type atorvastatin 20 mg tablet 20 mg PO HS High cholesterol 06/18/22 07/13/22 History furosemide 40 mg tablet 80 mg PO DAILY Fluid 06/18/22 07/13/22 History sennosides 8.6 mg-docusate sodium 1 tab PO DAILYP PRN Constipation 06/18/22 07/13/22 History 50 mg tablet aspirin 81 mg tablet,delayed 81 mg PO DAILY heart health 07/13/22 07/13/22 History release carvedilol 25 mg tablet 25 mg PO BID heart 07/13/22 07/13/22 History rivaroxaban 15 mg tablet (Xarelto) 15 mg PO QPMWITHMEAL blood thinner 07/13/22 07/13/22 History sacubitril 97 mg-valsartan 103 mg 1 tab PO BID Heart failure 07/13/22 07/13/22 History tablet (Entresto) spironolactone 25 mg tablet 25 mg PO DAILY diuretic 07/13/22 07/13/22 History New Prescriptions to Start Prescriptions: Height: 1.8 m Weight: 114.305 kg Laboratory Results:: Laboratory Results - last 24 hr 07/13/22 12:22: SARS-CoV-2 (PCR) Not detected, Influenza A Untype (PCR) Not detected, Influenza Type B (PCR) Not detected 07/13/22 16:21: Troponin I 0.03 07/14/22 07:28: WBC 12.8 H, RBC 4.26 L, Hgb 14.0 L, Hct 42.6, MCV 100.1 H, MCH 32.9 H, MCHC 32.8, RDW 17.0, Plt Count 204, MPV 9.5, Neut % (Auto) 79.1, Lymph % (Auto) 15.4, [place] % (Auto) 3.5, Eos % (Auto) 1.7, Baso % (Auto) 0.4, Neut # (Auto) 10.2 H, Lymph # (Auto) 2.0, [place] # (Auto) 0.5, Eos # (Auto) 0.2, Baso # (Auto) 0.1 07/14/22 07:28: Sodium 135 L, Potassium 3.3 L, Chloride 103, Carbon Dioxide 21 L, Anion Gap 14.3, BUN 32 H, Creatinine 2.40 H, Estimated Creat Clear 65, Estimated GFR 30 L, Est GFR ( Amer) 36 L, Glucose 81, Calcium 8.9, Magnesium 1.9, Total Bilirubin 2.8 H, AST 41 D, ALT 28, Alkaline Phosphatase 162 H, Total Protein 5.5 L, Albumin 3.0 L D, Globulin 2.5, Albumin/Globulin Ratio 1.2 Medical History: Medical History Coronary artery disease Elevated troponin Hyperlipidemia Renal insufficiency Tobacco use Assessment and Plan Assessment and plan all Dx Assessment and Plan for all problems:: Pharmacokinetic dosing service Age: 42 yo Serum creatinine: 2.4 mg/dL Height: 70.9 Inches Weight (kg): 114 Assessment: IBW (kg): 75.07 Dosing wt(kg): 114 Estimated Creatinine clearance (ml/min): 43.0 CRCL method: Cockcroft and Gault using ibw(default). Drug selected: Vancomycin Loading dose (mg): 0 Vd (liters): 91.2 (factor used: 0.8 L/kg) Ray (hr-1): 0.040 Half life (hrs): 17.33 Recommended dose: 1500 mg Interval: 18 hrs Infusion time (hrs): 2.0 Predicted peak (mcg/mL): 30.8 Predicted trough (mcg/mL): 16.24 Total body weight is being used for vancomycin dosing. Recommendations: Give Vancomycin 1500 mg q 18 hrs with an expected Cpeak of 30.8 mcg/ml and an expected Ctrough of 16.24 mcg/ml ----Vanco only - ignore for aminoglycosides----- CLvanco= 3.65 L/hr AUC 0-24 /KAYLEE Data: KAYLEE 0.5 mcg/mL: AUC/KAYLEE: 1095.9 KAYLEE 1.0 mcg/mL: AUC/KAYLEE: 547.9 --------- KAYLEE 1.5 mcg/mL: AUC/KAYLEE: 365.3 KAYLEE 2.0 mcg/mL: AUC/KAYLEE: 274.0
--- NOTE | 2022-07-14 13:50 | CT_ITS ---
PROCEDURE INFORMATION: Exam: CT Left Lower Extremity Without Contrast; Lower Leg Exam date and time: 07/14/2022 3:10 PM Age: 42 years old Clinical indication: Cellulitis; Lower leg; Left; Additional info: Cellulitis, R/O nec fasc TECHNIQUE: Imaging protocol: CT of the Left lower extremity without contrast was performed. Exam focused on the lower leg. Radiation optimization: All CT scans at this facility use at least one of these dose optimization techniques: automated exposure control; mA and/or kV adjustment per patient size (includes targeted exams where dose is matched to clinical indication); or iterative reconstruction. COMPARISON: CA VENOUS DOPPLER LE LT 07/13/2022 11:31 AM FINDINGS: Bones/joints: No acute fracture. Soft tissues: Circumferential soft tissue stranding about the leg. Muscles are normal in bulk. No subcutaneous air to suggest necrotizing fasciitis. No discrete collection. IMPRESSION: Lower extremity cellulitis. No subcutaneous air to suggest necrotizing fasciitis.
--- NOTE | 2022-07-14 13:50 | CT_ITS ---
PROCEDURE INFORMATION: Exam: CT Left Lower Extremity Without Contrast; Thigh Exam date and time: 07/14/2022 3:03 PM Age: 42 years old Clinical indication: Cellulitis; Thigh; Left; Additional info: R/O nec fasc TECHNIQUE: Imaging protocol: CT of the Left lower extremity without contrast was performed. Exam focused on the thigh. Radiation optimization: All CT scans at this facility use at least one of these dose optimization techniques: automated exposure control; mA and/or kV adjustment per patient size (includes targeted exams where dose is matched to clinical indication); or iterative reconstruction. COMPARISON: CA VENOUS DOPPLER LE LT 07/13/2022 11:31 AM FINDINGS: Bones/joints: No acute fracture. Soft tissues: There is diffuse cellulitis encompassing the anterolateral thigh. No discrete collection. No subcutaneous emphysema. Intraperitoneal space: Large amount of free fluid in the pelvic region. IMPRESSION: 1. Diffuse cellulitis. No discrete collection. No subcutaneous emphysema to suggest necrotizing fasciitis. 2. Large amount of free fluid in the pelvis
--- NOTE | 2022-07-14 16:03 | EXP.PN ---
Subjective *Date: 07/14/22 *Time: 16:03 Interval history: Patient reports feeling about the same today compared to yesterday. His leg still hurts, slightly less swollen. Exam Data for Last 24 hours Vital signs and Labs for Last 24 Hours: Temp Pulse Resp BP Pulse Ox 98.3 F 77 16 140/92 H 99 07/14/22 12:00 07/14/22 12:00 07/14/22 12:00 07/14/22 12:00 07/14/22 12:00 Laboratory Results - last 24 hr 07/13/22 16:21: Troponin I 0.03 07/14/22 07:28: WBC 12.8 H, RBC 4.26 L, Hgb 14.0 L, Hct 42.6, MCV 100.1 H, MCH 32.9 H, MCHC 32.8, RDW 17.0, Plt Count 204, MPV 9.5, Neut % (Auto) 79.1, Lymph % (Auto) 15.4, [place] % (Auto) 3.5, Eos % (Auto) 1.7, Baso % (Auto) 0.4, Neut # (Auto) 10.2 H, Lymph # (Auto) 2.0, [place] # (Auto) 0.5, Eos # (Auto) 0.2, Baso # (Auto) 0.1 07/14/22 07:28: Sodium 135 L, Potassium 3.3 L, Chloride 103, Carbon Dioxide 21 L, Anion Gap 14.3, BUN 32 H, Creatinine 2.40 H, Estimated Creat Clear 65, Estimated GFR 30 L, Est GFR ( Amer) 36 L, Glucose 81, Calcium 8.9, Magnesium 1.9, Total Bilirubin 2.8 H, AST 41 D, ALT 28, Alkaline Phosphatase 162 H, Total Protein 5.5 L, Albumin 3.0 L D, Globulin 2.5, Albumin/Globulin Ratio 1.2 I & O for Last 24 hours: Intake & Output 07/11/22 07/12/22 07/13/22 07/14/22 23:59 23:59 23:59 23:59 Intake Total 360 / 360 1677 / 1677 Output Total 750 / 750 650 / 650 Balance -390 / -390 1027 / 1027 Weight 111.697 kg 114.305 kg Constitutional Constitutional: no acute distress, obese, chronically ill appearing and cooperative *Routine HEENT Exam Head: Present normocephalic and atraumatic Eye: Present EOMI and PERRL ENT: Present mucous membranes moist *Routine Neck Exam Neck: Present supple; Absent JVD *Routine Respiratory Exam Respiratory: Present CTA bilaterally; Absent accessory muscle use, rales, rhonchi or wheezes *Routine Cardiovascular Exam Cardiovascular: Present RRR; Absent murmur, gallop or rubs *Routine Abdominal Exam Abdominal: Present soft and normoactive bowel sounds; Absent tenderness, rebound or guarding *Routine Rectal Exam Patient deferred: visual exam *Routine Exam Patient deferred: penile exam *Routine Extremities Exam Extremities: Present edema (Left leg up to mid/proximal thigh), full ROM, pulses intact and tenderness (Left leg); Absent cyanosis or clubbing *Routine Skin Exam Skin: Present intact; Absent cyanosis *Routine Neurological Exam Neurological: Present alert, oriented X3 and moving all extremities; Absent altered mental status or tremors Routine Psychiatric Exam Psychiatric: Present normal affect, normal thought process, cooperative, good insight and good judgment Assessment and Plan *Assessment and plan (1) Acute on chronic HFrEF (heart failure with reduced ejection fraction): Status: Acute Category: Medical Code(s): I50.23 - Acute on chronic systolic (congestive) heart failure (2) Chest pain: Status: Resolved Category: Medical Code(s): R07.9 - Chest pain, unspecified (3) Tobacco use: Status: Chronic Category: Social Hx Code(s): Z72.0 - Tobacco use (4) Hyperlipidemia: Status: Chronic Category: Medical Code(s): E78.5 - Hyperlipidemia, unspecified (5) Hypertensive heart disease: Status: Chronic Category: Medical Code(s): I11.9 - Hypertensive heart disease without heart failure (6) Class 1 obesity: Status: Chronic Category: Medical Code(s): E66.9 - Obesity, unspecified Plan 42-year-old male with systolic heart failure (EF 10-15%), CKD, and prediabetes who is admitted for left leg cellulitis: //Left Leg cellulitis - Erythema difficult to discern in setting of very dark pigmentation. - Almost entire left leg is warm, swollen, and tender. - DVT ruled out in ED although pt is on xarelto. - BCx x 2 drawn in ED. - Cont vanc to cover MRSA. - CT Left leg ordered to help r/o nec fasc. //Systolic Heart Failure
[2022-07-14 16:52] LABS: NT Pro Brain Natriuretic Pep. 21700 pg/mL (0-125)
[2022-07-15] VITALS (8 sets, daily range): BP systolic 139–153; BP diastolic 74–106; PULSE 70–90; RESP 17–18; TEMP 36.6–37.2; O2SAT 91–99; BMI 35.5
--- NOTE | 2022-07-15 04:04 | PC.NURSE ---
0230 pt called out and stated his iv was out, noted iv to left ac was accidently pulled out, catheter intact., new iv started right forearm x2 sticks., pt tolerated well. #20g started right forearm.
--- NOTE | 2022-07-15 05:53 | PC.NURSE ---
pt restless through the night with lle pain and tenderness, pt was offered morphine for pain rated 6/10 and refused, pt only wanted tylenol, lle with edema and elevated up on pillow, generalized edema to rle, no other issues noted at this time, vss, telemetry reveals nsr with frequent pvcs, pt is alert and oriented x4.
[2022-07-15 08:06] LABS: Basophils # 0.1 K/mm3 (0-0.2); Basophils % 0.4 % (0.1-2.0); Eosinophils # 0.3 K/mm3 (0.0-0.4); Hematocrit 40.9 % (42.0-52.0); Hemoglobin 13.5 g/dL (14.1-18.0); Lymphocytes # 2.3 K/mm3 (0.7-4.5); Lymphocytes % 17.5 % (10-50); Mean Corpuscular HGB Conc 33.1 g/dL (31.8-35.4); Mean Corpuscular Hemoglobin 32.2 pg (27.0-31.2); Mean Corpuscular Volume 97.3 fl (80-94); Mean Platelet Volume 9.7 fl (7.4-10.4); Monocytes # 0.6 K/mm3 (0.1-1.0); Monocytes % 4.6 % (1.7-9.3); Neutrophils # 9.9 K/mm3 (1.8-7.8); Neutrophils % 75.5 % (37.0-80.0); Platelet Count 257 K/mm3 (142-424); Red Blood Count 4.21 M/mm3 (4.60-6.20); Red Cell Distribution Width 16.9 % (11.5-17.5); White Blood Count 13.2 K/mm3 (4.8-10.8)
[2022-07-15 08:10] LABS: Chloride 99 mmol/L (98-107); Sodium 133 mmol/L (136-145)
[2022-07-15 08:13] LABS: Alanine Aminotransferase 29 U/L (12-78); Albumin Level 3.3 g/dl (3.5-5.0); Albumin/Globulin Ratio 1.2 (1.1-1.8); Alkaline Phosphatase 192 U/L (38-126); Anion Gap 12.9 mEq/L (5-15); Aspartate Amino Transferase 29 U/L (17-59); Bilirubin,Total 2.6 mg/dl (0.2-1.3); Blood Urea Nitrogen 29 mg/dl (9-20); Carbon Dioxide 24 mmol/L (22.0-30.0); Creatinine Clearance Estimated 66 mL/min (50-200); Estimated Glomerular Filt Rate 30 ml/min (>60); GFR (African American) 36 ML/MIN (>60); Globulin 2.8 g/dL (1.3-3.2); Total Protein,Serum 6.1 g/dl (6.3-8.2)
[2022-07-15 08:14] LABS: Calcium 9.1 mg/dl (8.4-10.2); Glucose 91 mg/dl (74-100)
[2022-07-15 08:19] LABS: C-Reactive Protein 150.8 mg/L (0-4)
[2022-07-15 08:40] LABS: Potassium 2.9 mmoL/L (3.5-5.1)
[2022-07-15 08:57] LABS: Erythrocyte Sedimentation Rate 49 mm/hr (0-15)
--- NOTE | 2022-07-15 12:08 | PC.NURSE ---
Dr. Wong and Dr. Aguirre aware of K of 2.8, and po K ordered per sep.
--- NOTE | 2022-07-15 13:38 | EXP.PN ---
Subjective *Date: 07/15/22 *Time: 13:38 Interval history: No acute events overnight. Patient reports feeling a little better today, the pain in his left leg is a little better. Exam Data for Last 24 hours Vital signs and Labs for Last 24 Hours: Temp Pulse Resp BP Pulse Ox 97.8 F 81 17 139/99 H 96 07/15/22 11:38 07/15/22 11:38 07/15/22 11:38 07/15/22 11:38 07/15/22 11:38 Laboratory Results - last 24 hr 07/14/22 07:28: NT-Pro-B Natriuret Pep 35339 H 07/15/22 07:26: WBC 13.2 H, RBC 4.21 L, Hgb 13.5 L, Hct 40.9 L, MCV 97.3 H, MCH 32.2 H, MCHC 33.1, RDW 16.9, Plt Count 257 D, MPV 9.7, Neut % (Auto) 75.5, Lymph % (Auto) 17.5, [place] % (Auto) 4.6, Eos % (Auto) 2.0, Baso % (Auto) 0.4, Neut # (Auto) 9.9 H, Lymph # (Auto) 2.3, [place] # (Auto) 0.6, Eos # (Auto) 0.3, Baso # (Auto) 0.1 07/15/22 07:26: Sodium 133 L, Potassium 2.9 L*, Chloride 99, Carbon Dioxide 24, Anion Gap 12.9, BUN 29 H, Creatinine 2.40 H, Estimated Creat Clear 66, Estimated GFR 30 L, Est GFR ( Amer) 36 L, Glucose 91, Calcium 9.1, Total Bilirubin 2.6 H, AST 29 D, ALT 29, Alkaline Phosphatase 192 H, C-Reactive Protein 150.8 H, Total Protein 6.1 L, Albumin 3.3 L, Globulin 2.8, Albumin/Globulin Ratio 1.2 07/15/22 07:26: ESR 49 H I & O for Last 24 hours: Intake & Output 07/12/22 07/13/22 07/14/22 07/15/22 23:59 23:59 23:59 23:59 Intake Total 360 / 360 1917 / 1917 1841 / 1841 Output Total 750 / 750 1300 / 1600 1250 / 1250 Balance -390 / -390 617 / 317 591 / 591 Weight 111.697 kg 114.305 kg 115.203 kg Microbiology Reports for the Last 24 Hours: Microbiology 07/13/22 12:30 Blood Blood Culture - Preliminary NO GROWTH AFTER 48 HOURS Constitutional Constitutional: no acute distress, obese, chronically ill appearing and cooperative *Routine HEENT Exam Head: Present normocephalic and atraumatic Eye: Present EOMI and PERRL ENT: Present mucous membranes moist *Routine Neck Exam Neck: Present supple; Absent JVD *Routine Respiratory Exam Respiratory: Present CTA bilaterally and normal respiratory effort; Absent accessory muscle use, rales, respiratory distress, rhonchi or wheezes *Routine Cardiovascular Exam Cardiovascular: Present RRR; Absent murmur, gallop or rubs *Routine Abdominal Exam Abdominal: Present soft and normoactive bowel sounds; Absent tenderness, rebound or guarding *Routine Rectal Exam Patient deferred: visual exam *Routine Exam Patient deferred: penile exam *Routine Extremities Exam Extremities: Present edema (Left leg up to knee), full ROM, pulses intact and tenderness (Left leg up to knee); Absent cyanosis or clubbing *Routine Skin Exam Skin: Present intact and warm; Absent cyanosis *Routine Neurological Exam Neurological: Present alert, oriented X3 and moving all extremities; Absent altered mental status or tremors Routine Psychiatric Exam Psychiatric: Present normal affect, normal thought process, cooperative, good insight and good judgment Assessment and Plan *Assessment and plan (1) Acute on chronic HFrEF (heart failure with reduced ejection fraction): Status: Acute Category: Medical Code(s): I50.23 - Acute on chronic systolic (congestive) heart failure (2) Chest pain: Status: Resolved Category: Medical Code(s): R07.9 - Chest pain, unspecified (3) Tobacco use: Status: Chronic Category: Social Hx Code(s): Z72.0 - Tobacco use (4) Hyperlipidemia: Status: Chronic Category: Medical Code(s): E78.5 - Hyperlipidemia, unspecified (5) Hypertensive heart disease: Status: Chronic Category: Medical Code(s): I11.9 - Hypertensive heart disease without heart failure (6) Class 1 obesity: Status: Chronic Category: Medical Code(s): E66.9 - Obesity, unspecified Plan 42-year-old male with systolic heart failure (EF 10-15%), CKD, and prediabetes who is admitted for left leg cellulitis
--- NOTE | 2022-07-15 17:48 | PC.NURSE ---
No acute changes this shift. Pt has refused pain meds and has no c/i's at this time. Has had over a liter of u/o this shift. VSS.CB in reach.
--- NOTE | 2022-07-15 21:52 | PC.NURSE ---
Pt states he takes Entresto once a day at home, and refuses to take 2100 dose.
[2022-07-16] VITALS: BP 140/77; PULSE 80; PULSE 84; RESP 18; TEMP 37; O2SAT 100
[2022-07-16 01:03] LABS: Vancomycin,Trough 15.5 ug/mL (5.0-10.0)
--- NOTE | 2022-07-16 01:32 | PC.NURSE ---
Spoke with [facility] at this time. Vanc trough 15.5 reported, orders received to give current scheduled dose of vanc.
[2022-07-16 03:26] VITALS: BP 126/82; PULSE 82; RESP 18; TEMP 37.1; O2SAT 96; BMI 34.9
[2022-07-16 04:00] VITALS: PULSE 80
[2022-07-16 06:00] LABS: Vancomycin,Peak 28.8 ug/ml (11-39)
[2022-07-16 06:04] LABS: Chloride 103 mmol/L (98-107); Sodium 136 mmol/L (136-145)
[2022-07-16 06:05] LABS: Potassium 3.4 mmoL/L (3.5-5.1)
[2022-07-16 06:07] LABS: Alanine Aminotransferase 28 U/L (12-78); Albumin/Globulin Ratio 1.1 (1.1-1.8); Alkaline Phosphatase 188 U/L (38-126); Anion Gap 13.4 mEq/L (5-15); Aspartate Amino Transferase 35 U/L (17-59); Bilirubin,Total 2.5 mg/dl (0.2-1.3); Blood Urea Nitrogen 26 mg/dl (9-20); Carbon Dioxide 23 mmol/L (22.0-30.0); Creatinine Clearance Estimated 82 mL/min (50-200); Estimated Glomerular Filt Rate 39 ml/min (>60); GFR (African American) 48 ML/MIN (>60); Globulin 2.7 g/dL (1.3-3.2); Total Protein,Serum 5.7 g/dl (6.3-8.2)
[2022-07-16 06:08] LABS: Glucose 80 mg/dl (74-100)
[2022-07-16 06:13] LABS: C-Reactive Protein 148.3 mg/L (0-4)
[2022-07-16 07:24] LABS: Basophils # 0.1 K/mm3 (0-0.2); Basophils % 0.7 % (0.1-2.0); Eosinophils # 0.4 K/mm3 (0.0-0.4); Eosinophils % 2.3 % (0.1-12.0); Hematocrit 43.2 % (42.0-52.0); Hemoglobin 14.5 g/dL (14.1-18.0); Lymphocytes # 2.4 K/mm3 (0.7-4.5); Lymphocytes % 16.2 % (10-50); Mean Corpuscular HGB Conc 33.5 g/dL (31.8-35.4); Mean Corpuscular Hemoglobin 32.9 pg (27.0-31.2); Mean Corpuscular Volume 98.4 fl (80-94); Mean Platelet Volume 9.5 fl (7.4-10.4); Monocytes # 0.7 K/mm3 (0.1-1.0); Monocytes % 4.6 % (1.7-9.3); Neutrophils # 11.5 K/mm3 (1.8-7.8); Neutrophils % 76.2 % (37.0-80.0); Platelet Count 284 K/mm3 (142-424); Red Blood Count 4.39 M/mm3 (4.60-6.20)
[2022-07-16 07:26] LABS: MANUAL DIFFERENTIAL MANUAL DIFFERENTIAL (MANUAL DIFF)
[2022-07-16 07:48] LABS: Lymphocytes % 9 % (10-50); Monocytes % 8 % (2-9); Neutrophils % 83 % (42-76); Platelet Estimate Normal; RBC Morphology Normal; Total Cells Counted 100
[2022-07-16 07:49] LABS: Erythrocyte Sedimentation Rate 41 mm/hr (0-15)
[2022-07-16 08:00] VITALS: BP 137/88; PULSE 77; PULSE 85; RESP 20; TEMP 36.9; O2SAT 99
--- NOTE | 2022-07-16 08:51 | EXP.PHA.CONS ---
Pharmacy Consult Date: 07/16/22 Time: 08:51 Referring provider: DR. OLSEN Reason for Consult:: VANCOMYCIN PEAK/TROUGH LEVELS Allergies Allergy/AdvReac Type Severity Reaction Status Date / Time No Known Allergies Allergy Verified 07/02/22 12:09 Home Medications Medication Instructions Recorded Confirmed Type atorvastatin 20 mg tablet 20 mg PO HS High cholesterol 06/18/22 07/13/22 History furosemide 40 mg tablet 80 mg PO DAILY Fluid 06/18/22 07/13/22 History sennosides 8.6 mg-docusate sodium 1 tab PO DAILYP PRN Constipation 06/18/22 07/13/22 History 50 mg tablet aspirin 81 mg tablet,delayed 81 mg PO DAILY heart health 07/13/22 07/13/22 History release carvedilol 25 mg tablet 25 mg PO BID heart 07/13/22 07/13/22 History rivaroxaban 15 mg tablet (Xarelto) 15 mg PO QPMWITHMEAL blood thinner 07/13/22 07/13/22 History sacubitril 97 mg-valsartan 103 mg 1 tab PO BID Heart failure 07/13/22 07/13/22 History tablet (Entresto) spironolactone 25 mg tablet 25 mg PO DAILY diuretic 07/13/22 07/13/22 History New Prescriptions to Start Prescriptions: Height: 1.8 m Weight: 113.2 kg Laboratory Results:: Laboratory Results - last 24 hr 07/15/22 07:26: ESR 49 H 07/16/22 00:30: Vancomycin Trough 15.5 H 07/16/22 05:15: Sodium 136, Potassium 3.4 L, Chloride 103, Carbon Dioxide 23, Anion Gap 13.4, BUN 26 H, Creatinine 1.90 H D, Estimated Creat Clear 82, Estimated GFR 39 L, Est GFR ( Amer) 48 L D, Glucose 80, Calcium 9.0, Total Bilirubin 2.5 H, AST 35, ALT 28, Alkaline Phosphatase 188 H, C-Reactive Protein 148.3 H, Total Protein 5.7 L, Albumin 3.0 L, Globulin 2.7, Albumin/Globulin Ratio 1.1 07/16/22 05:15: Vancomycin Peak 28.8 07/16/22 07:10: WBC 15.0 H, RBC 4.39 L, Hgb 14.5, Hct 43.2, MCV 98.4 H, MCH 32.9 H, MCHC 33.5, RDW 17.0, Plt Count 284, MPV 9.5, Neut % (Auto) 76.2, Lymph % (Auto) 16.2, [place] % (Auto) 4.6, Eos % (Auto) 2.3, Baso % (Auto) 0.7, Neut # (Auto) 11.5 H, Lymph # (Auto) 2.4, [place] # (Auto) 0.7, Eos # (Auto) 0.4, Baso # (Auto) 0.1, Total Counted 100, Neutrophils % (Manual) 83 H, Lymphocytes % (Manual) 9 L, Monocytes % (Manual) 8, Platelet Estimate Normal, RBC Morphology Normal 07/16/22 07:10: ESR 41 H Medical History: Medical History Coronary artery disease Elevated troponin Hyperlipidemia Renal insufficiency Tobacco use Assessment and Plan Assessment and plan all Dx Assessment and Plan for all problems:: BASED ON PATIENT FACTORS AND VANCOMYCIN TROUGH/PEAK LEVELS OF 15.5/28.8 RESPECTIVELY, CONTINUE CURRENT DOSE OF VANCOMYCIN AT 1,500MG IV EVERY 18 HOURS. -JUVENTINO DEXTERD
[2022-07-16 12:00] VITALS: BP 136/99; PULSE 79; RESP 16; TEMP 36.6; O2SAT 98
--- NOTE | 2022-07-16 12:42 | US_ITS ---
FINAL REPORT CLINICAL HISTORY: current smoker, HTN, HLD, previous angioplasty, bilateral rest pain FINDINGS: COMPLETE ANKLE/BRACHIAL INDICES BILATERAL Complete ankle brachial indices were obtained. The right ZOHRA is 1.3. The left ZOHRA is 1.2. IMPRESSION: ABIs are within normal limits bilaterally. Reviewed, Interpreted and Dictated by Kingston Kulkarni III, MD Transcribed by Celina Conn Authenticated and [facility]
--- NOTE | 2022-07-16 14:53 | EXP.DC.SUM ---
General Admission date:: 07/13/22 Discharge date: 07/16/22 HPI HPI HPI: Patient is a 42-year-old -[place] male with past medical history of systolic heart failure (EF 10-15%), CKD (baseline 2.5), prediabetes who comes to the ER for left leg swelling and pain for the past 5 days. Patient reports pain has gotten progressively worse to the point where he cannot stand on his leg. He denies any fever, chills, fatigue, he does have occasional nausea. Patient's only other complaint is some pain in his right shoulder. Hospital Course Hospital Course Hospital Course: 42-year-old male with systolic heart failure (EF 10-15%), CKD, and prediabetes who was admitted on 07/13/2022 for left leg cellulitis and REJI on CKD: //Left Leg cellulitis on day of admission was very significant, from sole of his foot to mid thigh. Cellulitis gradually improved with vancomycin and diuresis. Given his chronic kidney disease, patient will be discharged with clindamycin and home Lasix will be doubled from 80 mg p.o. daily to twice daily. Patient still has a moderate amount of pain and he will therefore be discharged with tramadol 50 mg p.o. twice daily #10. CT Left leg shows cellulitis, no overt sign of nec fasc. //Systolic Heart Failure. - BNP was 21,700 on 07/14; recently was 15,100 on 06/18/22. Pt denies chest pain or shortness of breath at this time. ECHO 06/18/22 EF 10-15%, global hypokinesis. Cardiology consulted, appreciate their recommendations. Cont Coreg, Entresto. Lasix increased to 80 mg IV TID and spironolactone increased to 100 mg PO qd by cardiology. //REJI on CKD - Cr 2.7 -> 2.4 -> 2.4 -> 1.9 during admission. Baseline appears to be about 2.5. //Tinea pedis - OTC med prescribed on discharge. //Prediabetes - A1c 6.0 on 06/18/22 Exam Data for Last 24 hours Vital signs and Labs for Last 24 Hours: Temp Pulse Resp BP Pulse Ox 98.4 F 85 20 137/88 99 07/16/22 08:00 07/16/22 08:00 07/16/22 08:00 07/16/22 08:00 07/16/22 08:00 Laboratory Results - last 24 hr 07/16/22 00:30: Vancomycin Trough 15.5 H 07/16/22 05:15: Sodium 136, Potassium 3.4 L, Chloride 103, Carbon Dioxide 23, Anion Gap 13.4, BUN 26 H, Creatinine 1.90 H D, Estimated Creat Clear 82, Estimated GFR 39 L, Est GFR ( Amer) 48 L D, Glucose 80, Calcium 9.0, Total Bilirubin 2.5 H, AST 35, ALT 28, Alkaline Phosphatase 188 H, C-Reactive Protein 148.3 H, Total Protein 5.7 L, Albumin 3.0 L, Globulin 2.7, Albumin/Globulin Ratio 1.1 07/16/22 05:15: Vancomycin Peak 28.8 07/16/22 07:10: WBC 15.0 H, RBC 4.39 L, Hgb 14.5, Hct 43.2, MCV 98.4 H, MCH 32.9 H, MCHC 33.5, RDW 17.0, Plt Count 284, MPV 9.5, Neut % (Auto) 76.2, Lymph % (Auto) 16.2, [place] % (Auto) 4.6, Eos % (Auto) 2.3, Baso % (Auto) 0.7, Neut # (Auto) 11.5 H, Lymph # (Auto) 2.4, [place] # (Auto) 0.7, Eos # (Auto) 0.4, Baso # (Auto) 0.1, Total Counted 100, Neutrophils % (Manual) 83 H, Lymphocytes % (Manual) 9 L, Monocytes % (Manual) 8, Platelet Estimate Normal, RBC Morphology Normal 07/16/22 07:10: ESR 41 H I & O for Last 24 hours: Intake & Output 07/13/22 07/14/22 07/15/22 07/16/22 23:59 23:59 23:59 23:59 Intake Total 360 / 360 1917 / 1917 2681 / 2681 600 / 600 Output Total 750 / 750 1300 / 1600 4252 / 4652 3700 / 3700 Balance -390 / -390 617 / 317 -1571 / -1971 -3100 / -3100 Weight 111.697 kg 114.305 kg 115.203 kg 113.2 kg Microbiology Reports for the Last 24 Hours: Microbiology 07/13/22 12:30 Blood Blood Culture - Preliminary NO GROWTH AFTER 48 HOURS 07/13/22 12:30 Blood Blood Culture - Preliminary NO GROWTH AFTER 48 HOURS Constitutional Constitutional: no acute distress, obese, chronically ill appearing and cooperative *Routine HEENT Exam Head: Present normocephalic and atraumatic Eye: Present EOMI and PERRL ENT: Present mucous membranes moist *Routine Neck Exam Neck: Present supple; Absent JVD *Routine Respiratory Exam Respiratory: Present CTA eileen
--- NOTE | 2022-07-17 11:53 | EXP.CARD.CON ---
History of Present Illness History of Present Illness Consult date: 07/16/22 Requesting physician: Ulysses Wong Consult reason: congestive heart failure Chief complaint: edema History of present illness: This is a 42-year-old -[place] gentleman who presented to the emergency department with a 5-day history of lower extremity swelling and pain. He states that the left leg was worse than the right. The patient reports that his swelling and pain were progressively worsening to the point where he was having difficulty standing on the left leg. The patient has known hypertensive cardiomyopathy with an ejection fraction of 10-15 percent with a LifeVest in place. The patient is currently being treated for his systolic congestive heart failure. However, he has been noncompliant with his medications. He denies any chest pain or pressure. He denies any shortness of breath. He denies any fever, chills, vomiting, diarrhea, PND or orthopnea. He does complain of some occasional nausea. [facility] Disclaimer: The information contained in this section may have been updated after the patient was seen, as this information can be updated by other users. Medical History Coronary artery disease Elevated troponin Hyperlipidemia Medical non-compliance Renal insufficiency Tobacco use Surgical History History of cardiac catheterization Family History (Updated 07/13/22 @ 15:02 by Magali Mattson RN) Family history of acute congestive heart failure Diabetes Family history of hypertension Family history of myocardial infarction Family history of hyperlipidemia Social History (Updated 07/13/22 @ 15:03 by Magali Mattson RN) Smoking Status: Former smoker years smoked: 15 alcohol intake: current current occupational status: employed Travel in the last 8 weeks: None Review of Systems Review of Systems Review of systems:: pertinent systems reviewed and negative unless documented below Constitutional Constitutional: Reports system reviewed and no additional complaints, except as documented and Reports weakness Eyes Eyes: Reports system reviewed and no additional complaints, except as documented ENT Ears, Nose, Mouth, and Throat: Reports system reviewed and no additional complaints, except as documented *Cardiovascular Cardiovascular: Reports system reviewed and no additional complaints, except as documented, Reports claudication and Reports leg edema *Respiratory Respiratory: Reports system reviewed and no additional complaints, except as documented *Gastrointestinal Gastrointestinal: Reports system reviewed and no additional complaints, except as documented *Genitourinary Genitourinary: Reports system reviewed and no additional complaints, except as documented *Musculoskeletal Musculoskeletal: Reports system reviewed and no additional complaints, except as documented and Reports other (Leg pain) Integumentary/Breasts Skin/Breast: Reports system reviewed and no additional complaints, except as documented *Neurologic Neurologic: Reports system reviewed and no additional complaints, except as documented, Denies abnormal movements, Denies abnormal speech, Denies behavioral changes, Denies confusion, Denies convulsions, Denies localized weakness, Denies other visual disturbances and Reports weakness Psychiatric Psychiatric: Reports system reviewed and no additional complaints, except as documented, Denies behavioral changes and Denies confusion Endocrine Endocrine: Reports system reviewed and no additional complaints, except as documented Hematologic/Lymphatic Hematologic/Lymphatic: Reports system reviewed and no additional complaints, except as documented Allergic/Immunologic Allergic/Immunologic: Reports system reviewed and no additional complaints, except as documented Exam Data for Last 24 hours Vital signs and Labs for Last 24 Hours: Temp Pulse Resp BP Pulse Ox 97.9 F 79
--- NOTE | 2022-07-18 14:06 | CARE MANAGER ---
Contacted patient related to hospital discharge. Patient states he is aware of follow up appointments and picked up his medications. Denies questions or concerns. MUMTAZ Brown
== END 2022-07-16 16:11 | disposition home or self-care (01) ==
LOC: ER 12:12 → 2ND 14:32
PROVIDERS: Admitting Provider Emergency Medicine; Emergency Provider Family Medicine; Visit Provider Emergency Medicine
DX: I50.23 Acute on chronic systolic (congestive) heart failure (principal); I12.9 Hypertensive chronic kidney disease with stage 1 through stage 4 chronic kidney disease, or unspecified chronic kidney disease; R07.9 Chest pain, unspecified; F17.210 Nicotine dependence, cigarettes, uncomplicated; E78.5 Hyperlipidemia, unspecified; M79.605 Pain in left leg; L03.116 Cellulitis of left lower limb; B35.3 Tinea pedis; Z82.49 Family history of ischemic heart disease and other diseases of the circulatory system; Z79.01 Long term (current) use of anticoagulants; N18.9 Chronic kidney disease, unspecified
CPT/HCPCS: 36415; 71045; 73700; 80053; 80202; 83735; 83880; 84484; 85007; 85025; 85651; 86140; 87040; 93005; 93923; 93971; 99285; C9803; G0378; J0696; J2405; U0003; U0005

== ENCOUNTER → 2022-08-07 09:27 | Outpatient (CLI) | payer BC, SELFPAY ==
--- NOTE | 2022-08-07 09:28 | CA_ITS ---
APPROVED REPORT EXAM: Limited 2D Echocardiogram Emergency Services Director: Virgie Lai RVT Ht: 5 ft 11 in Wt: 239lbs BSA: 2.27 BP: 137/108 mmHg Indications: EF CHECK, EF OF 10-15% ON ECHO 06/18/22, PT HAS LIFEVEST DID NOT HAVE ON TODAY,HTN,HLD,CHF,CAD,NON-COMP WITH MEDS 2D Dimensions LVOT 2.47 cm (M/F) 1.5-2.5 M-Mode Dimensions RVDd 3.01 cm (0.9-2.6) LA Diam 6.09 cm (1.9-4.0) LVDd 7.59 cm (3.5-5.7) Ao Diam 3.45 cm (2.0-3.7) LVDs 7.21 cm (3.5-5.7) IVSd 1.14 cm (0.6-1.1) PWd 0.68 cm (0.6-1.1) EF (Teich) 10.90% FS 5.00% EDV (Teich) 306.40 mL ESV (Teich) 273.00 mL Conclusion 1. Limited echocardiogram was performed to evaluate left ventricular systolic function. 2. The left ventricle is dilated, there is severe reduction left ventricular systolic function, estimated ejection fraction 10 to 15%, left ventricle is globally hypokinetic. Electronically signed by : Rizwan Thomas MD 08/08/2022 05:56:05
== END ==
PROVIDERS: PCP Internal Medicine; Visit Provider Nurse Practitioner
DX: I25.10 Atherosclerotic heart disease of native coronary artery without angina pectoris (principal); I11.0 Hypertensive heart disease with heart failure; I50.23 Acute on chronic systolic (congestive) heart failure; I50.9 Heart failure, unspecified; I42.8 Other cardiomyopathies; I47.29 Other ventricular tachycardia; M79.605 Pain in left leg; E78.5 Hyperlipidemia, unspecified; N28.9 Disorder of kidney and ureter, unspecified; E66.9 Obesity, unspecified; Z68.33 Body mass index [BMI] 33.0-33.9, adult; Z72.0 Tobacco use; Z95.810 Presence of automatic (implantable) cardiac defibrillator
CPT/HCPCS: 93308

== ENCOUNTER 2022-09-17 08:37 | Day surgery (SDC) | payer BC, SELFPAY ==
[2022-09-17] VITALS (11 sets, daily range): BP systolic 135–172; BP diastolic 87–113; PULSE 74–77; RESP 16–20; TEMP 36.4–36.8; O2SAT 94–100; BMI 29.5
--- NOTE | 2022-09-17 07:18 | IR_ITS ---
APPROVED REPORT Patient Location: Outpatient Conservation Coordinator: DONALD Darling RT (R) PROCEDURES 1. Pocket formation for AICD. 2. Placement of atrial sensing and pacing coil into the right atrial appendage. 3. Placement of a ventricular sensing, pacing and shocking coil in the right ventricular apex. 4. Permanent AICD placement. INDICATION Systolic Congestive Heart Failure, ejection < 35%, [place] Heart Assoication Class 3 Congestive Heart Failure Informed consent was obtained prior to the procedure. COMPLICATIONS None Estimated Blood Loss: Less than 10 ML TECHNIQUE 1% Lidocaine with epinephrine used to anesthetized the left anterior aspect of the chest. Scalpel was used to make the initial cutaneous incision while electrocautery was used to dissect down tinto the fascia. The fascia was lifted off the pectoralis muscle and digitally manipulated creating a pocket for the defibrillator. The patient was then placed in Trendelenburg position and the subclavian vein was accessed 2 times via the Selinger technique. A 8 [place]i sheath was placed under fluoroscopic guidance into the subclavian vein. The dilator was removed from the sheath. Using fluoroscopic guidance, the ventricular lead was placed into the right ventricular apex, screwed and secured into place. Electronic interrogation proved acceptable thresholds and voltage within the lead. Using 3-0 silk, the ventricular lead was then secured into place and sheath peeled away. A 6 [place]i fresh sheath and dilator was placed over the existing wire. Using fluoroscopic guidance, the atrial lead was then placed into the right atrial appendage and screwed and secured in place. Electrical interrogation demonstrated acceptable thresholds and voltage number. The atrial lead was then secured into place using 3-0 silk and sheath peeled away. 1 gram of Ancef was used to flush the pocket. All 3 leads were connected to generator and tested via computer. The defibrillator then secured to the fascia. Monocryl was used to close the subcutaneous layers while fidencio were used to close the cutaneous layer. A pressure dressing was placed and the patient was transferred to the postop holding area in stable condition for postoperative care. INTERROGATION Generator Model number: Renant ICD DF4-DR D233 Generator Serial number: [id number] Atrial lead model number: Ingevity+ IS-1 Bi Positive Fix RA/RV 52 cm 7841 Atrial lead serial number: [id number] P-wave: 4.0 mV Impedence: 583 Ohms Threshold: 0.8V Current: 1.4 mA Right Ventricular lead model number: [place] 4-Front Active Fix Dual Coil 59 cm 0675 Right Ventricular lead serial number: [id number] R-wave: 12.0 mV Impedence: 414 Ohms Threshold: 0.4V Current: 1.0 mA Shock Impedence: 40 Ohms Pacing Parameters: Mode: DDD Base/Max Track:60 ppm / 130 ppm VF 210 bpm 2.5 seconds VT 180 5 seconds VT-1 150 5 seconds Quick Convert, 41Jx1, 41Jx1, 41Jx6 ATP 41Jx1, 41Jx1, 41Jx4 No diaphragmatic stimulation at 10 volts. IMPRESSION 1. Successful pocket formation for AICD. 2. Successful placement of atrial sensing and pacing coil into the right atrial appendage. 3. Successful placement of a ventricular sensing, pacing and shocking coil in the right ventricular apex. 4. Successful permanent AICD placement. PLAN 1. Postop wound care. Electronically signed by : Esau Aguirre MD 09/21/2022 13:39:18
[2022-09-17 09:44] LABS: Basophils # 0.1 K/mm3 (0-0.2); Basophils % 0.7 % (0.1-2.0); Eosinophils # 0.2 K/mm3 (0.0-0.4); Eosinophils % 2.6 % (0.1-12.0); Hematocrit 46.8 % (42.0-52.0); Hemoglobin 16.4 g/dL (14.1-18.0); Lymphocytes # 2.4 K/mm3 (0.7-4.5); Lymphocytes % 28.7 % (10-50); Mean Corpuscular HGB Conc 35.1 g/dL (31.8-35.4); Mean Corpuscular Hemoglobin 34.3 pg (27.0-31.2); Mean Corpuscular Volume 97.6 fl (80-94); Mean Platelet Volume 8.4 fl (7.4-10.4); Monocytes # 0.4 K/mm3 (0.1-1.0); Monocytes % 4.2 % (1.7-9.3); Neutrophils # 5.3 K/mm3 (1.8-7.8); Neutrophils % 63.8 % (37.0-80.0); Platelet Count 260 K/mm3 (142-424); Red Blood Count 4.79 M/mm3 (4.60-6.20); Red Cell Distribution Width 17.4 % (11.5-17.5); White Blood Count 8.4 K/mm3 (4.8-10.8)
[2022-09-17 09:55] LABS: Anion Gap 8.3 mEq/L (5-15); Blood Urea Nitrogen 27 mg/dl (9-20); Calcium 9.2 mg/dl (8.4-10.2); Carbon Dioxide 29 mmol/L (22.0-30.0); Chloride 102 mmol/L (98-107); Creatinine Clearance Estimated 63 mL/min (50-200); Estimated Glomerular Filt Rate 35 ml/min (>60); GFR (African American) 42 ML/MIN (>60); Glucose 89 mg/dl (74-100); Potassium 4.3 mmoL/L (3.5-5.1); Sodium 135 mmol/L (136-145)
--- NOTE | 2022-09-17 13:16 | XR_ITS ---
FINAL REPORT TECHNIQUE: Single view chest CLINICAL HISTORY: post pacemaker insert COMPARISON: 07/13/2022 FINDINGS: A single view of the chest was obtained. There is a new, left-sided AICD in place. The heart is enlarged. New, bilateral mixed interstitial and alveolar opacities are seen, favor pulmonary edema. Lungs are otherwise clear. There is no pneumothorax. Osseous structures are unremarkable. IMPRESSION: Interval placement of left-sided AICD. No pneumothorax. Cardiomegaly with new, mixed interstitial and alveolar opacities, favor pulmonary edema. Reviewed, Interpreted and Dictated by Mildred Allen MD Transcribed by Tiffani Dumont Authenticated and [facility]
--- NOTE | 2022-09-17 13:44 | EXP.ANES.CKL ---
[facility] Disclaimer: The information contained in this section may have been updated after the patient was seen, as this information can be updated by other users. Medical History Coronary artery disease Elevated troponin Hyperlipidemia Medical non-compliance Nonischemic cardiomyopathy Presence of external cardiac defibrillator Renal insufficiency Tobacco use Surgical History History of cardiac catheterization Family History Other Diabetes Family history of acute congestive heart failure Family history of hyperlipidemia Family history of hypertension Family history of myocardial infarction Social History Smoking Status: Former smoker years smoked: 15 alcohol intake: current substance use type: denies use current occupational status: employed Travel in the last 8 weeks: None [facility] Anesthesia Checklist Patient Identification Patient Identification: Arm Band Structural Data Admitted From: Home Planned Operative Procedure/s: Dual Chamber AICD Consent for Planned Operative Procedure(s) Verified: Yes Verified Documents: Surgical Consent and History and Physical NPO Status Verified Time NPO: 00:00 Additional verifications Anesthesia Reactions: No Airway Assessment C-Spine Mobility Assessed: Yes TMJ Mobility Assessed: Yes Dentition: Good Dentition Neurological Assessment Level of Consciousness: Awake and Alert Anesthesia Plan Anesthesia Risk discussed: Yes Anesthesia Plan: Verified ASA Class: IV Anesthesia Type: MAC
--- NOTE | 2022-09-17 15:11 | SUR.PHASEII ---
Patient discharged at this time, awaiting friend to arrive for ride home.
== END 2022-09-17 15:54 | disposition home or self-care (01) ==
PROVIDERS: PCP Internal Medicine; Visit Provider Internal Medicine
PROC: 0JH608Z Insertion of Defibrillator Generator into Chest Subcutaneous Tissue and Fascia, Open Approach (ICD-10-PCS; CPT 33249; principal; 2022-09-17 11:00)
DX: I11.0 Hypertensive heart disease with heart failure (principal); I50.23 Acute on chronic systolic (congestive) heart failure; I25.10 Atherosclerotic heart disease of native coronary artery without angina pectoris; Z45.02 Encounter for adjustment and management of automatic implantable cardiac defibrillator; I47.29 Other ventricular tachycardia; I42.8 Other cardiomyopathies; E78.5 Hyperlipidemia, unspecified; Z79.899 Other long term (current) drug therapy; Z87.891 Personal history of nicotine dependence
CPT/HCPCS: 33249; 71045; 80048; 85025; C1721; C1895; C1898

== ENCOUNTER 2022-09-29 20:50 | Emergency (ER) | payer BC, SELFPAY ==
[2022-09-29 20:35] VITALS: BP 131/104; PULSE 79; RESP 17; TEMP 37.1; O2SAT 100; BMI 31.1
--- NOTE | 2022-09-29 20:48 | XR_ITS ---
PROCEDURE INFORMATION: Exam: XR Chest Exam date and time: 09/29/2022 8:50 PM Age: 42 years old Clinical indication: Shortness of breath; Additional info: SOB TECHNIQUE: Imaging protocol: Radiologic exam of the chest. Views: 2 views. COMPARISON: CR XR CHEST PORTABLE 09/17/2022 1:19 PM FINDINGS: Tubes, catheters and devices: Cardiac pacemaker remains in place. Lungs: There is minimal right basilar infiltrate. Lungs are otherwise clear. Pleural spaces: Unremarkable. No pleural effusion. No pneumothorax. Heart/Mediastinum: There is stable enlargement of the cardiac silhouette. Bones/joints: Unremarkable. IMPRESSION: Minimal right basilar infiltrate. Overall, lungs have largely cleared since the previous study.
--- NOTE | 2022-09-29 20:48 | ECG_ITS ---
APPROVED REPORT Exam: Resting ECG HR:79 bpm ECG Measurements Heart Rate 79 AXES WY 183 P 68 QRSd 117 QRS -28 QT 431 T 124 QTc 465 Conclusion SINUS RHYTHM Left atrial abnormality Late R wave progression-previously noted Nonspecific interventricular conduction delay ABNORMAL ECG UNCONFIRMED REPORT Electronically signed by : Burak Friedman MD 09/30/2022 17:18:25
[2022-09-29 21:13] LABS: Basophils # 0.1 K/mm3 (0-0.2); Basophils % 0.7 % (0.1-2.0); Chloride 98 mmol/L (98-107); Eosinophils # 0.2 K/mm3 (0.0-0.4); Eosinophils % 2.2 % (0.1-12.0); Hematocrit 46.6 % (42.0-52.0); Hemoglobin 15.1 g/dL (14.1-18.0); Lymphocytes # 2.7 K/mm3 (0.7-4.5); Lymphocytes % 35.1 % (10-50); Mean Corpuscular HGB Conc 32.5 g/dL (31.8-35.4); Mean Corpuscular Hemoglobin 31.8 pg (27.0-31.2); Mean Corpuscular Volume 97.8 fl (80-94); Monocytes # 0.3 K/mm3 (0.1-1.0); Monocytes % 3.5 % (1.7-9.3); Neutrophils # 4.4 K/mm3 (1.8-7.8); Neutrophils % 58.5 % (37.0-80.0); Platelet Count 241 K/mm3 (142-424); Red Blood Count 4.76 M/mm3 (4.60-6.20); Red Cell Distribution Width 17.7 % (11.5-17.5); Sodium 137 mmol/L (136-145); White Blood Count 7.6 K/mm3 (4.8-10.8)
--- NOTE | 2022-09-29 21:13 | HMH.EDSOB ---
Discharge Plan Disposition Patient Disposition: Home, Self-Care Chief Complaint: Shortness of Breath/Dyspnea Prescriptions Prescriptions: No Action furosemide 80 mg tablet 80 mg PO TID Qty: 90 3RF spironolactone 50 mg tablet 50 mg PO DAILY Qty: 90 3RF carvedilol 25 mg tablet 25 mg PO BID Qty: 60 5RF atorvastatin 20 mg tablet 20 mg PO HS Qty: 90 3RF Xarelto 15 mg tablet 15 mg PO QPMWITHMEAL Qty: 90 3RF Entresto 97-103 mg tablet 1 tab PO BID Qty: 60 5RF ondansetron HCl 4 mg tablet 4 mg PO DAILY Qty: 20 0RF aspirin 81 mg tablet,delayed release (DR/EC) 81 mg PO DAILY sennosides-docusate sodium 8.6-50 mg Tablet 1 tab PO DAILYP PRN (Reason: Constipation) clindamycin HCl 300 mg capsule 300 mg PO TID tramadol 50 mg tablet 50 mg PO BID tolnaftate 1 % aerosol powder 1 spray topical BID Referrals Follow up/Referrals: Provider,Referral, MD [Primary Care Provider] - See instructions Clinical Impressions Clinical Impression: Automatic implantable cardioverter-defibrillator in situ, Coronary artery disease Instructions Patient Instructions: DI for Shortness of Breath Discharge ED Provider: Allison (ED)Jose Alfredo Resp/SOB HPI General Chief Complaint: Shortness of Breath/Dyspnea Stated Complaint: SOA Time Seen by Provider: 09/29/22 21:14 Mode of Arrival: EMS Source of Information: Patient, EMS and Medical Record Limitations: No Limitations Description of Symptoms (Recalled from ER Triage Doc. by RN): PT TO ED VIA EMS FOR CHEST TIGHTNESS AND SOB AROUND 1830 TONIGHT. PT RECENTLY HAD A PACEMAKER PLACED ON 09/[address] GAGNON. PT REPORTS DURING THIS EPISODE HE FELT A ZAPPING SENSATION AT HIS PACEMAKER SIGHT THAT LASTED ABOUT 10 MINUTES BUT HAS SINCE RESOLVED. PT DENIES ANY CHEST PAIN OR SOB AT THIS TIME. History of Present Illness recent pacemaker/defib on 09/17 and been doing ok but has episodes of zapping at pacemaker site but now abated Complaint: shortness of breath and chest pain Onset (ago): hour(s) Severity: moderate Associated symptoms: denies other symptoms Treatment prior to arrival: none Related Data Home oxygen amount: none Home Medications Medication Instructions Recorded Confirmed sennosides 8.6 mg-docusate sodium 1 tab PO DAILYP PRN Constipation 06/18/22 09/25/22 50 mg tablet aspirin 81 mg tablet,delayed 81 mg PO DAILY heart health 07/13/22 09/25/22 release clindamycin HCl 300 mg capsule 300 mg PO TID . 09/17/22 09/25/22 tolnaftate 1 % topical spray powder 1 spray topical BID . 09/17/22 09/25/22 tramadol 50 mg tablet 50 mg PO BID . 09/17/22 09/25/22 Previous Rx's Medication Instructions Recorded atorvastatin 20 mg tablet 20 mg PO HS High cholesterol #90 07/19/22 tabs carvedilol 25 mg tablet 25 mg PO BID heart #60 tabs 07/19/22 furosemide 80 mg tablet 80 mg PO TID Fluid #90 tabs 07/19/22 spironolactone 50 mg tablet 50 mg PO DAILY diuretic #90 tabs 07/19/22 sacubitril 97 mg-valsartan 103 mg 1 tab PO BID Heart failure #60 tabs 09/19/22 tablet (Entresto) rivaroxaban 15 mg tablet (Xarelto) 15 mg PO QPMWITHMEAL blood thinner 09/25/22 #90 tabs ondansetron HCl 4 mg tablet 4 mg PO DAILY . #20 tabs 09/26/22 Allergies Allergy/AdvReac Type Severity Reaction Status Date / Time No Known Allergies Allergy Verified 09/25/22 11:19 [facility] Disclaimer: The information contained in this section may have been updated after the patient was seen, as this information can be updated by other users. Medical History Automatic implantable cardioverter-defibrillator in situ Coronary artery disease Elevated troponin Hyperlipidemia Medical non-compliance Nonischemic cardiomyopathy Presence of external cardiac defibrillator Renal insufficiency Tobacco use Surgical History History of cardiac catheterization Family History (Reviewed 09/25/22 @ 11:16 by Elizabeth Keller
[2022-09-29 21:14] LABS: Potassium 3.4 mmoL/L (3.5-5.1)
[2022-09-29 21:16] LABS: Blood Urea Nitrogen 36 mg/dl (9-20); Creatinine Clearance Estimated 60 mL/min (50-200); Estimated Glomerular Filt Rate 31 ml/min (>60); GFR (African American) 38 ML/MIN (>60)
[2022-09-29 21:17] LABS: Anion Gap 11.4 mEq/L (5-15); Carbon Dioxide 31 mmol/L (22.0-30.0); Glucose 84 mg/dl (74-100)
[2022-09-29 21:29] LABS: Troponin I 0.02 ng/ml (0.00-0.034)
[2022-09-29 21:30] VITALS: BP 140/105; O2SAT 100
[2022-09-29 22:00] VITALS: BP 139/104; PULSE 74; RESP 24; O2SAT 100
[2022-09-29 22:40] VITALS: BP 140/100; PULSE 72; RESP 18; TEMP 36.6; O2SAT 99
[2022-09-29 22:55] LABS: NT Pro Brain Natriuretic Pep. 19700 pg/mL (0-125)
== END 2022-09-29 22:45 | disposition home or self-care (01) ==
PROVIDERS: Emergency Provider Emergency Medicine
DX: R06.02 Shortness of breath (principal); I25.10 Atherosclerotic heart disease of native coronary artery without angina pectoris; Z95.0 Presence of cardiac pacemaker; E78.5 Hyperlipidemia, unspecified; Z86.79 Personal history of other diseases of the circulatory system; N28.9 Disorder of kidney and ureter, unspecified; F17.210 Nicotine dependence, cigarettes, uncomplicated; Z83.3 Family history of diabetes mellitus; Z82.49 Family history of ischemic heart disease and other diseases of the circulatory system; Z83.42 Family history of familial hypercholesterolemia
CPT/HCPCS: 71046; 80048; 83880; 84484; 85025; 93005; 99285

== ENCOUNTER → 2022-10-01 10:44 | Outpatient (CLI) | payer BC, SELFPAY ==
[2022-10-01 10:48] LABS: Microscopic, Urine URINE MICROSCOPIC (MICROSCOPIC)
[2022-10-01 11:09] LABS: Appearance,Urine CLEAR (Clear); Blood, Urine 1+ (Negative); Color,Urine YELLOW (Yellow); Glucose,Urine (UA) Negative (Negative); Ketones,Urine Negative (Negative); Leukocyte Esterase,Urine Negative (Negative); Nitrate,Urine Negative (Negative); Protein,Urine 3+ (Negative); Specific Gravity, Urine 1.025 (1.005-1.030)
[2022-10-01 11:13] LABS: Bilirubin,Urine 1+ (Negative)
[2022-10-01 11:33] LABS: Bacteria,Urine Trace /lpf; Squamous Epithelial Cell,Urine Occasional #/hpf (0-5)
== END ==
PROVIDERS: Visit Provider Nurse Practitioner Family
DX: N23 Unspecified renal colic (principal); I42.8 Other cardiomyopathies; I50.23 Acute on chronic systolic (congestive) heart failure; Z95.810 Presence of automatic (implantable) cardiac defibrillator
CPT/HCPCS: 81001

== ENCOUNTER → 2022-10-03 10:39 | Outpatient (CLI) | payer BC, SELFPAY ==
[2022-10-03 11:56] LABS: Anion Gap 13.1 mEq/L (5-15); Blood Urea Nitrogen 33 mg/dl (9-20); Calcium 9.1 mg/dl (8.4-10.2); Carbon Dioxide 35 mmol/L (22.0-30.0); Chloride 95 mmol/L (98-107); Estimated Glomerular Filt Rate 35 ml/min (>60); GFR (African American) 42 ML/MIN (>60); Glucose 92 mg/dl (74-100); Potassium 3.1 mmoL/L (3.5-5.1); Sodium 140 mmol/L (136-145)
== END ==
PROVIDERS: Visit Provider Nurse Practitioner Family
DX: I25.10 Atherosclerotic heart disease of native coronary artery without angina pectoris (principal); I42.8 Other cardiomyopathies; I50.23 Acute on chronic systolic (congestive) heart failure; N23 Unspecified renal colic; Z95.810 Presence of automatic (implantable) cardiac defibrillator
CPT/HCPCS: 36415; 80048

== ENCOUNTER → 2022-10-08 10:30 | Outpatient (CLI) | payer BC, SELFPAY | PROVIDERS: Visit Provider Nurse Practitioner | DX: I25.10 Atherosclerotic heart disease of native coronary artery without angina pectoris (principal) ==

== ENCOUNTER → 2022-11-29 10:33 | Outpatient (CLI) | payer BC, SELFPAY ==
[2022-11-29 11:27] LABS: Chloride 99 mmol/L (98-107); Potassium 3.9 mmoL/L (3.5-5.1); Sodium 138 mmol/L (136-145)
[2022-11-29 11:30] LABS: Anion Gap 13.9 mEq/L (5-15); Blood Urea Nitrogen 25 mg/dl (9-20); Calcium 9.5 mg/dl (8.4-10.2); Carbon Dioxide 29 mmol/L (22.0-30.0); Estimated Glomerular Filt Rate 48 ml/min (>60); GFR (African American) 58 ML/MIN (>60); Glucose 84 mg/dl (74-100)
[2022-11-29 11:31] LABS: Magnesium 2.1 mg/dl (1.6-2.3)
== END ==
PROVIDERS: Visit Provider Internal Medicine
DX: I50.23 Acute on chronic systolic (congestive) heart failure (principal)
CPT/HCPCS: 36415; 80048; 83735

== ENCOUNTER → 2022-12-13 07:28 | Outpatient (CLI) | payer BC, SELFPAY ==
[2022-12-13 10:11] LABS: Blood Urea Nitrogen 72 mg/dl (9-20); Calcium 9.3 mg/dl (8.4-10.2); Carbon Dioxide 29 mmol/L (22.0-30.0); Chloride 89 mmol/L (98-107); Estimated Glomerular Filt Rate 24 ml/min (>60); GFR (African American) 29 ML/MIN (>60); Glucose 85 mg/dl (74-100); Sodium 137 mmol/L (136-145)
[2022-12-13 10:18] LABS: Anion Gap 22.1 mEq/L (5-15); Potassium 3.1 mmoL/L (3.5-5.1)
== END ==
PROVIDERS: Visit Provider Nurse Practitioner
DX: I50.23 Acute on chronic systolic (congestive) heart failure (principal); N28.9 Disorder of kidney and ureter, unspecified
CPT/HCPCS: 36415; 80048; 83735

== ENCOUNTER 2023-04-28 07:08 | Emergency (ER) | payer BC, SELFPAY ==
[2023-04-28] VITALS (8 sets, daily range): BP systolic 124–156; BP diastolic 91–118; PULSE 72–95; RESP 11–20; TEMP 36.6–36.7; O2SAT 95–99; BMI 32.1
--- NOTE | 2023-04-28 07:04 | ECG_ITS ---
APPROVED REPORT Exam: Resting ECG HR:94 bpm ECG Measurements Heart Rate 94 AXES MT 165 P 37 QRSd 108 QRS -20 QT 422 T 161 QTc 473 Conclusion SINUS RHYTHM WITH OCCASIONAL VENTRICULAR PREMATURE COMPLEXES Left atrial abnormality LEFT VENTRICULAR HYPERTROPHY AND ST-T CHANGE ABNORMAL ECG UNCONFIRMED REPORT Electronically signed by : Burak Friedman MD 04/29/2023 19:43:44
--- NOTE | 2023-04-28 07:12 | PC.NURSE ---
DR YEPEZ AT BEDSIDE
--- NOTE | 2023-04-28 07:12 | HMH.EDGENADL ---
Discharge Plan Disposition Patient Disposition: Home, Self-Care Condition: Good Prescriptions Prescriptions: New torsemide 100 mg tablet 100 mg PO DAILY Qty: 30 0RF Discontinued torsemide 100 mg tablet 100 mg PO DAILY Qty: 30 2RF No Action spironolactone 50 mg tablet 50 mg PO DAILY Qty: 90 3RF atorvastatin 20 mg tablet 20 mg PO HS Qty: 90 3RF Xarelto 15 mg tablet 15 mg PO QPMWITHMEAL Qty: 90 3RF Corlanor 5 mg tablet 5 mg PO BID Qty: 60 2RF Rx Instructions: must administer with a meal/food amlodipine 10 mg tablet 10 mg PO DAILY Qty: 30 2RF Entresto 97-103 mg tablet 1 tab PO BID Qty: 60 5RF carvedilol 25 mg tablet 50 mg PO BID 30 Days Qty: 120 5RF tramadol 50 mg tablet 50 mg PO BID Referrals Follow up/Referrals: Provider,Referral, [Primary Care Provider] - See instructions Activity Restrictions/Add. Instructions Additional Instructions/Restrictions: As discussed, it appears that your shortness of breath and some of your other symptoms may be due to a slight increase in the fluid buildup in the lungs due to heart failure. We have given you an additional dose of diuretic in the emergency department. 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 Please return with any new or worsening symptoms. Clinical Impressions Clinical Impression: Acute on chronic HFrEF (heart failure with reduced ejection fraction) Stand Alone Forms Stand Alone Forms: Work/School Release Discharge ED Provider: Bladimir Kincaid Adult HPI General Chief complaint: Chest Pain Stated complaint: CP Time Seen by Provider: 04/28/23 07:12 History of Present Illness HPI narrative: The patient presents with a chief complaint of chest pain, cough, and pressure in the chest area. The symptoms have been ongoing for approximately two days and began gradually. The patient first noticed chest tightening, which has been accompanied by a rattling sensation in the chest when lying down. He reports occasional shortness of breath and an irregular heart rhythm. He has a history of a pacemaker and defibrillator implantation. The patient has experienced night sweats but denies any recent fever or chills. He has not been around anyone who has been sick recently and reports no changes in medications. The patient denies any worsening swelling in the legs or water weight gain. He has been coughing but does not mention any expectoration. The patient has experienced some abdominal pain, similar to the sensation of fullness, but has not had any nausea or vomiting in the past couple of days. He reports no pain upon palpation of the abdomen and denies any sore throat. The patient has a smoking history of half a pack of cigarettes per day but does not mention any previous lung issues or a diagnosis of COPD. He has not required any breathing treatments in the past. Related Data Home Medications Medication Instructions Recorded Confirmed tramadol 50 mg tablet 50 mg PO BID . 09/17/22 04/28/23 Previous Rx's Medication Instructions Recorded atorvastatin 20 mg tablet 20 mg PO HS High cholesterol #90 07/19/22 tabs spironolactone 50 mg tablet 50 mg PO DAILY diuretic #90 tabs 07/19/22 sacubitril 97 mg-valsartan 103 mg 1 tab PO BID Heart failure #60 tabs 09/19/22 tablet (Entresto) rivaroxaban 15 mg tablet (Xarelto) 15 mg PO QPMWITHMEAL blood thinner 09/25/22 #90 tabs carvedilol 25 mg tablet 50 mg PO BID heart 30 days #120 02/13/23 tabs amlodipine 10 mg tablet 10 mg PO DAILY #30 tabs 04/08/23 ivabradine 5 mg tablet (Corlanor) 5 mg PO BID #60 tabs 04/08/23 torsemide 100 mg tablet 100 mg PO DAILY #30 tabs 04/28/23 Allergies Allergy/AdvReac Type Severity Reaction Status Date / Time No Known Allergies Allergy Verified 04/08/23 11:29 [facility] Disclaimer: The information contained in this section may have been updated after the patient was seen, as
--- OUTSIDE RECORDS SUMMARY | 2023-04-28 07:13 | XMS_ITS | Clinical Summary ---
Author Name Unknown Address [address] [place] [address] Phone Organization [facility] Address [address] [place] [address] Phone Care Team Providers Care Sterilizer Operator Name Role Phone Nathalie Her Unavailable Unavailable Conditions or Problems Problem Name Problem Code Onset Date Status Entry Date Provider Comment Standard Description Annotate Xerosis 63000637 (SNOMED CT) 07/30 Active 07/30 Jackie L Asteatosis cutis FDC (current) use of anticoagulants , Xarelto Z79.01 (ICD-10-CM) 07/30 Active 07/30 Jackie L FDC (current) use of anticoagulants Paroxysmal atrial fib 008602762 (SNOMED CT) 07/30 Active 07/30 Jackie L Paroxysmal atrial flutter Nicotine dependence, cigarettes F17.210 (ICD-10-CM) 07/30 Active 07/30 Jackie L Nicotine dependence, cigarettes, uncomplicated Obesity due to excess calories E66.09 (ICD-10-CM) 07/30 Active 07/30 Jackie L Other obesity due to excess calories
--- NOTE | 2023-04-28 07:17 | PC.NURSE ---
Dr. Kincaid at bs for pt eval
--- NOTE | 2023-04-28 07:24 | XR_ITS ---
PROCEDURE INFORMATION: Exam: XR Chest Exam date and time: 04/28/2023 7:24 AM Age: 43 years old Clinical indication: Pain; Chest pressure; Prior surgery; Surgery date: 1-6 months; Surgery type: Pace maker in September; Additional info: Chest pain, cough TECHNIQUE: Imaging protocol: Radiologic exam of the chest. Views: 2 views. COMPARISON: CR XR CHEST 2V 09/29/2022 8:50 PM FINDINGS: Tubes, catheters and devices: AICD. Lungs: Hypoinflation with interstitial prominence and mild airspace disease. Pleural spaces: Mild pleural thickening without dependent pleural effusion. Heart/Mediastinum: Cardiomegaly. Diaphragm: Asymmetric elevation of the right hemidiaphragm. Bones/joints: Unremarkable. IMPRESSION: Cardiomegaly and AICD.
--- NOTE | 2023-04-28 07:32 | PC.NURSE ---
XR AT BEDSIDE
[2023-04-28 07:37] LABS: Basophils % 0.4 % (0.1-2.0); Eosinophils # 0.2 K/mm3 (0.0-0.4); Eosinophils % 2.4 % (0.1-12.0); Hematocrit 49.1 % (42.0-52.0); Hemoglobin 16.2 g/dL (14.1-18.0); Lymphocytes # 2.5 K/mm3 (0.7-4.5); Lymphocytes % 25.2 % (10-50); Mean Corpuscular HGB Conc 33.1 g/dL (31.8-35.4); Mean Corpuscular Hemoglobin 32.2 pg (27.0-31.2); Mean Corpuscular Volume 97.5 fl (80-94); Mean Platelet Volume 8.7 fl (7.4-10.4); Monocytes # 0.4 K/mm3 (0.1-1.0); Neutrophils # 6.7 K/mm3 (1.8-7.8); Platelet Count 300 K/mm3 (142-424); Red Blood Count 5.03 M/mm3 (4.60-6.20); Red Cell Distribution Width 13.7 % (11.5-17.5); White Blood Count 9.9 K/mm3 (4.8-10.8)
[2023-04-28 07:39] LABS: Chloride 107 mmol/L (98-107); Potassium 3.4 mmoL/L (3.5-5.1); Sodium 138 mmol/L (136-145)
[2023-04-28 07:41] LABS: Alanine Aminotransferase 42 U/L (12-78); Aspartate Amino Transferase 39 U/L (17-59); Blood Urea Nitrogen 20 mg/dl (9-20); Creatinine Clearance Estimated 95 mL/min (50-200); Estimated Glomerular Filt Rate 51 ml/min (>60); GFR (African American) 62 ML/MIN (>60)
[2023-04-28 07:42] LABS: Albumin Level 3.9 g/dl (3.5-5.0); Albumin/Globulin Ratio 1.1 (1.1-1.8); Alkaline Phosphatase 110 U/L (38-126); Anion Gap 11.4 mEq/L (5-15); Bilirubin,Total 1.1 mg/dl (0.2-1.3); Calcium 8.8 mg/dl (8.4-10.2); Carbon Dioxide 23 mmol/L (22.0-30.0); Globulin 3.6 g/dL (1.3-3.2); Glucose 109 mg/dl (74-100); Phosphorous 3.4 mg/dl (2.5-4.5); Total Protein,Serum 7.5 g/dl (6.3-8.2)
[2023-04-28 07:43] LABS: Magnesium 1.7 mg/dl (1.6-2.3)
[2023-04-28 07:51] LABS: NT Pro Brain Natriuretic Pep. 8470 pg/mL (0-125)
--- NOTE | 2023-04-28 07:51 | PC.NURSE ---
ROUNDED ON PT, UPDATED ON POC. NO NEEDS AT THIS TIME. CALL LIGHT WITHIN REACH
[2023-04-28 07:53] LABS: Coronavirus 19, PCR Not Detected (NotDetected); Influenza A, PCR Not Detected (NotDetected); Influenza B, PCR Not Detected (NotDetected)
[2023-04-28 07:54] LABS: Troponin I 0.04 ng/ml (0.00-0.034)
--- NOTE | 2023-04-28 08:29 | PC.NURSE ---
Rounded on pt. Light turned off per pt request. No other needs voiced. Call light within reach.
[2023-04-28 09:27] LABS: Troponin I 0.04 ng/ml (0.00-0.034)
--- NOTE | 2023-04-28 09:47 | PC.NURSE ---
URINAL PROVIDED, CALL LIGHT WITHIN REACH
--- NOTE | 2023-04-28 09:50 | PC.NURSE ---
Pt is d/c and information reviewed with pt, however he does not have a ride at this time. Call light in place in case he has any needs or concerns.
== END 2023-04-28 10:50 | disposition home or self-care (01) ==
PROVIDERS: Emergency Provider Emergency Medicine
DX: I50.23 Acute on chronic systolic (congestive) heart failure (principal); I49.3 Ventricular premature depolarization; R79.89 Other specified abnormal findings of blood chemistry; I25.10 Atherosclerotic heart disease of native coronary artery without angina pectoris; E78.5 Hyperlipidemia, unspecified; Z95.810 Presence of automatic (implantable) cardiac defibrillator; Z87.891 Personal history of nicotine dependence; I11.0 Hypertensive heart disease with heart failure; R07.89 Other chest pain
CPT/HCPCS: 71046; 80053; 83735; 83880; 84100; 84484; 85025; 87636; 93005; 96374; 99285

== ENCOUNTER → 2023-05-20 15:01 | Outpatient (CLI) | payer BC, SELFPAY ==
[2023-05-20 15:18] LABS: Basophils # 0.1 K/mm3 (0-0.2); Basophils % 0.6 % (0.1-2.0); Eosinophils # 0.3 K/mm3 (0.0-0.4); Eosinophils % 2.7 % (0.1-12.0); Hemoglobin 17.8 g/dL (14.1-18.0); Lymphocytes # 3.7 K/mm3 (0.7-4.5); Lymphocytes % 32.5 % (10-50); Mean Corpuscular HGB Conc 34.9 g/dL (31.8-35.4); Mean Corpuscular Hemoglobin 34.3 pg (27.0-31.2); Mean Corpuscular Volume 98.5 fl (80-94); Mean Platelet Volume 8.4 fl (7.4-10.4); Monocytes # 0.7 K/mm3 (0.1-1.0); Monocytes % 5.7 % (1.7-9.3); Neutrophils # 6.7 K/mm3 (1.8-7.8); Neutrophils % 58.6 % (37.0-80.0); Platelet Count 256 K/mm3 (142-424); Red Blood Count 5.18 M/mm3 (4.60-6.20); Red Cell Distribution Width 14.4 % (11.5-17.5); White Blood Count 11.5 K/mm3 (4.8-10.8)
[2023-05-20 16:27] LABS: Alanine Aminotransferase 30 U/L (12-78); Albumin Level 4.6 g/dl (3.5-5.0); Alkaline Phosphatase 100 U/L (38-126); Anion Gap 16.6 mEq/L (5-15); Aspartate Amino Transferase 33 U/L (17-59); Bilirubin,Direct 0.2 mg/dl (0.0-0.4); Bilirubin,Indirect 0.9 mg/dL (0.0-0.9); Bilirubin,Total 1.1 mg/dl (0.2-1.3); Bilirubin,Unconjugated 0.9 mg/dL (0.0-1.1); Calcium 9.6 mg/dl (8.4-10.2); Carbon Dioxide 23 mmol/L (22.0-30.0); Chloride 104 mmol/L (98-107); Chol/HDL Ratio 3.9 (1-3.5); Cholesterol 230 mg/dl (140-200); Glucose 97 mg/dl (74-100); HDL Cholesterol 59 mg/dl (40-60); Magnesium 1.7 mg/dl (1.6-2.3); Potassium 3.6 mmoL/L (3.5-5.1); Sodium 140 mmol/L (136-145); Total Protein,Serum 7.7 g/dl (6.3-8.2); Triglycerides 259 mg/dl (30-150); VLDL Cholesterol 52 mg/dL (0-40)
[2023-05-20 16:31] LABS: Blood Urea Nitrogen 21 mg/dl (9-20); Estimated Glomerular Filt Rate 39 ml/min (>60); GFR (African American) 47 ML/MIN (>60)
[2023-05-20 16:44] LABS: Free T4 (Free Thyroxine) 1.05 ng/dl (0.78-2.19)
[2023-05-20 16:58] LABS: Thyroid Stimulating Hormone 2.21 uIU/mL (0.465-4.68)
== END ==
LOC: LAB 15:02
PROVIDERS: Visit Provider Internal Medicine
DX: I25.10 Atherosclerotic heart disease of native coronary artery without angina pectoris (principal); I11.0 Hypertensive heart disease with heart failure; I50.23 Acute on chronic systolic (congestive) heart failure; I42.8 Other cardiomyopathies; Z95.810 Presence of automatic (implantable) cardiac defibrillator; Z87.891 Personal history of nicotine dependence
CPT/HCPCS: 36415; 80048; 80061; 80076; 83735; 84439; 84443; 85025

== ENCOUNTER → 2023-06-20 14:39 | Outpatient (CLI) | payer BC, SELFPAY ==
[2023-06-20 15:52] LABS: Anion Gap 12.4 mEq/L (5-15); Blood Urea Nitrogen 38 mg/dl (9-20); Calcium 9.1 mg/dl (8.4-10.2); Carbon Dioxide 28 mmol/L (22.0-30.0); Chloride 98 mmol/L (98-107); Estimated Glomerular Filt Rate 42 ml/min (>60); GFR (African American) 50 ML/MIN (>60); Glucose 89 mg/dl (74-100); Potassium 3.4 mmoL/L (3.5-5.1); Sodium 135 mmol/L (136-145)
== END ==
PROVIDERS: Visit Provider Internal Medicine
DX: I11.0 Hypertensive heart disease with heart failure (principal); I50.23 Acute on chronic systolic (congestive) heart failure; I42.8 Other cardiomyopathies; N28.9 Disorder of kidney and ureter, unspecified; Z95.810 Presence of automatic (implantable) cardiac defibrillator; Z87.891 Personal history of nicotine dependence
CPT/HCPCS: 36415; 80048

== ENCOUNTER 2023-08-13 12:22 | Outpatient (CLI) | payer BC, SELFPAY ==
--- NOTE | 2023-08-13 | CA_ITS ---
APPROVED REPORT EXAM: Comprehensive 2D, Doppler, and color-flow Echocardiogram Office Support: Virgie Lai RVT Ht: 5 ft 11 in Wt: 250lbs BSA: 2.32 BP: 148/107 mmHg Indications: SOA,CHF,CM EF 10-15% ON 06-18-22,PACER,HTN,HLD,CAD 2D Dimensions LA Volume 53.20 mL LA Volume Index 22.93 mL/m2 (M/F) 16-34 M-Mode Dimensions RVDd 2.98 cm (0.9-2.6) LA Diam 4.74 cm (1.9-4.0) LVDd 7.55 cm (3.5-5.7) LVDs 6.95 cm (3.5-5.7) IVSd 0.82 cm (0.6-1.1) PWd 0.73 cm (0.6-1.1) EF (Teich) 17.00% FS 7.90% EDV (Teich) 302.80 mL TAPSE 1.09 (<1.7) ESV (Teich) 251.30 mL Aortic Valve JANESSA Index 1.15 cm2/m2 AoV Peak Chris. 112.0 (50-130 cm/s) AO Peak GR. 5.10 mmHg AO Mean GR. 2.40 (<5 mmHg) AO VTI 17.1 (18-25 cm) JANESSA (VTI) 2.73 (2.5-4.5 cm2) Pulmonary Valve PV Peak Velocity 89.0 (50-150 cm/s) Tricuspid Valve TR P. Velocity 227.00 cm/s RAP Estimate 10.00 mmHg RVSP 30.50 mmHg Left Ventricle The left ventricle is severely dilated. Left ventricular systolic function is severely decreased. There is normal left ventricular wall thickness. There is severe global hypokinesis present. There is akinesis of the inferior, septal, inferoseptal, lateral, and inferolateral LV hartley. The septum appears asynchronous. Grade 2 diastolic dysfunction is present. Right Ventricle The right ventricle is mildly dilated. Right ventricle is moderately hypokinetic. There is a device lead in the right ventricle. Atria The left atrium size is normal. The right atrium size is normal. There is no Doppler evidence of interatrial shunt. Aortic Valve The aortic valve is normal in structure. There is no aortic valvular stenosis. No aortic regurgitation is present. Mitral Valve The mitral valve is normal in structure. No evidence of mitral valve stenosis. Mild mitral regurgitation. Tricuspid Valve The tricuspid valve leaflets are thin and pliable. Trace tricuspid regurgitation. There is insufficient TR jet to estimate RVSP. Pulmonic Valve The pulmonary valve is normal in structure. Trace pulmonic regurgitation. Great Vessels The aortic root is normal in size. The ascending aorta is not well-visualized. IVC is normal in size and collapses >50% with inspiration. Pericardium There is no pericardial effusion. Other Information Study Quality: Fair Conclusion Severely dilated LV with severe reduction in LV systolic function (LVEF 10-15%). Akinesis of the inferior, septal, inferoseptal, lateral, and inferolateral LV hartley. The septum appears asynchronous. Mildly dilated RV with moderate reduction in RV function. Mild MR. Compared to prior study from 08/07/2022, the LVEF is unchanged. Electronically signed by : Tati Dennison MD 08/14/2023 11:00:08
== END 2023-08-13 23:59 ==
LOC: RT 12:24
PROVIDERS: Visit Provider Physician Assistant
DX: I50.23 Acute on chronic systolic (congestive) heart failure (principal); I47.29 Other ventricular tachycardia; R94.31 Abnormal electrocardiogram [ECG] [EKG]; E78.5 Hyperlipidemia, unspecified; E66.9 Obesity, unspecified; Z68.34 Body mass index [BMI] 34.0-34.9, adult; Z72.0 Tobacco use; Z95.810 Presence of automatic (implantable) cardiac defibrillator
CPT/HCPCS: 93306

== ENCOUNTER 2023-10-07 10:39 | Outpatient (CLI) | payer BC, SELFPAY ==
[2023-10-07 11:10] LABS: Basophils # 0.1 K/mm3 (0-0.2); Basophils % 1.2 % (0.1-2.0); Eosinophils # 0.1 K/mm3 (0.0-0.4); Eosinophils % 1.1 % (0.1-12.0); Hematocrit 56.8 % (42.0-52.0); Lymphocytes # 3.3 K/mm3 (0.7-4.5); Lymphocytes % 29.8 % (10-50); Mean Corpuscular HGB Conc 32.7 g/dL (31.8-35.4); Mean Corpuscular Hemoglobin 34.4 pg (27.0-31.2); Mean Corpuscular Volume 105.4 fl (80-94); Mean Platelet Volume 8.3 fl (7.4-10.4); Monocytes # 0.5 K/mm3 (0.1-1.0); Monocytes % 4.6 % (1.7-9.3); Neutrophils % 63.3 % (37.0-80.0); Platelet Count 284 K/mm3 (142-424); Red Blood Count 5.39 M/mm3 (4.60-6.20); Red Cell Distribution Width 14.6 % (11.5-17.5); White Blood Count 11.1 K/mm3 (4.8-10.8)
[2023-10-07 11:36] LABS: Albumin Level 4.4 g/dl (3.5-5.0); Alkaline Phosphatase 103 U/L (38-126); Bilirubin,Direct 0.1 mg/dl (0.0-0.4); Bilirubin,Indirect 0.8 mg/dL (0.0-0.9); Bilirubin,Total 0.9 mg/dl (0.2-1.3); Bilirubin,Unconjugated 0.9 mg/dL (0.0-1.1); Blood Urea Nitrogen 18 mg/dl (9-20); Calcium 9.9 mg/dl (8.4-10.2); Carbon Dioxide 27 mmol/L (22.0-30.0); Chloride 105 mmol/L (98-107); Chol/HDL Ratio 4.4 (1-3.5); Cholesterol 276 mg/dl (140-200); Estimated Glomerular Filt Rate 51 ml/min (>60); GFR (African American) 62 ML/MIN (>60); Glucose 102 mg/dl (74-100); HDL Cholesterol 63 mg/dl (40-60); Sodium 140 mmol/L (136-145); Total Protein,Serum 7.6 g/dl (6.3-8.2); Triglycerides 168 mg/dl (30-150); VLDL Cholesterol 34 mg/dL (0-40)
[2023-10-07 11:54] LABS: Free T4 (Free Thyroxine) 0.86 ng/dl (0.78-2.19)
[2023-10-07 13:22] LABS: Hemoglobin 18.6 g/dL (14.1-18.0)
[2023-10-07 15:12] LABS: Alanine Aminotransferase 37 U/L (12-78); Aspartate Amino Transferase 39 U/L (17-59)
== END 2023-10-07 23:59 ==
LOC: LAB 10:40
PROVIDERS: Visit Provider Nurse Practitioner
DX: Z95.810 Presence of automatic (implantable) cardiac defibrillator (principal); I42.8 Other cardiomyopathies; I25.10 Atherosclerotic heart disease of native coronary artery without angina pectoris; N28.9 Disorder of kidney and ureter, unspecified; I11.0 Hypertensive heart disease with heart failure; I50.23 Acute on chronic systolic (congestive) heart failure; Z79.899 Other long term (current) drug therapy
CPT/HCPCS: 36415; 80048; 80061; 80076; 83735; 84439; 84443; 85025

== ENCOUNTER 2024-07-23 07:57 | Outpatient (CLI) | payer MEDICAID, SELFPAY ==
--- NOTE | 2024-07-23 | CA_ITS ---
APPROVED REPORT Exam: Pharmacologic Technologist: Maria E Padilla Ht: 5 ft 11 in Wt: 299 lbs BSA: 2.50 m2 Medical History Medications: amlodipine, atorvastatin, carvedilol, doxazosin, eplerenone, ezetimibe, xarelto, entresto, torsemide, tramadol Allergies: Spironolactone Stress Test Details Test: Exercise stress converted to pharmacologic stress due to failure to obtain a diagnostic stress test. Reason for pharmacologic stress test: changed from exercise stress test due to inability to reach target heart rate. HR Resting HR: 88 bpm Max Heart Rate (APMHR): 177.045197 bpm Max HR Achieved: 96 bpm Target HR (85% APMHR): 150.767574 bpm % of APMHR: 54.24 Recovery HR: 90 bpm BP Resting BP: 121.0/97.0 mmHg Max BP: 125.0/83.0 mmHg Recovery BP: 119.0/81.0 mmHg ECG Resting ECG: Sinus & T wave inversion Inf. Lat. Stress ECG Conclusion Symptoms: None Arrhythmias/Ectopy: Occasional PVC's. ST-T Changes: Baseline T wave inversion infer-laterally worsened during stress. Conclusion: Non-diagnostic Lexiscan stress due to baseline STT abnormalities. Electronically signed by : Tati Dennison MD 07/26/2024 17:39:38
--- NOTE | 2024-07-23 08:00 | NM_ITS ---
APPROVED REPORT Exam: Nuclear Stress Test Indication: pacemaker, htn, hyperlipidemia, tob use, fm hx, c.p., palpitations Patient Location: Outpatient Stress Tech: Yina Cummings [place] Tech:DONALD Mak RT(R)(N) Ht: 5 ft 11 in Wt: 292 lbs HR: 87 bpm BP: 121/97 mmHg BSA: 2.48 m2 TID: 0.92 BMI: 40.7 History: pacemaker, htn, hyperlipidemia, tob use, fm hx, c.p., palpitations Procedure: Patient received 0.4 mg of intravenous Lexiscan, resting heart rate 87 bpm, resting blood pressure 121/97 mmHg, with Lexiscan maximum heart rate achieved was 99 bpm which is % of the maximum predicted heart rate and blood pressure was 114/85 mmHg. With Lexiscan, patient denied any complaint of chest pain. Cardiac Stress and Resting SPECT Images: Cardiac Stress and Resting SPECT images were obtained using technetium 99m Myoview 30.5 mCi stress and 10.27 mCi at rest. Resting and stress imaging in supine and prone positions demonstrate a large-sized, severe, fixed perfusion defect in the inferior wall, as well as a medium-sized, moderate, partially reversible defect in the basal to mid anterior LV wall. The left ventricle is severely dilated. Gated imaging demonstrates severe reduction in LV systolic function. The inferior LV wall is nearly akinetic. LVEF is calculated at 17%. Conclusion: Large-sized, severe, fixed perfusion defect in the inferior wall, as well as a medium-sized, moderate, partially reversible defect in the basal to mid anterior LV wall. Findings are suggestive of partial reversible ischemia. The left ventricle is severely dilated. Gated imaging demonstrates severe reduction in LV systolic function. The inferior LV wall is nearly akinetic. LVEF is calculated at 17%. Correlation with recent or new TTE is suggested. Electronically signed by : Tati Dennison MD 07/26/2024 17:35:21
[2024-07-23] MEDS: SODIUM CHLORIDE 0.9% 10ML SYR (RAD ONLY) 10 ML IV ×2 (11:03)
[2024-07-23] MEDS: ISOTOPE MYOVIEW (PER STUDY) 1 DOSE IV (11:03)
[2024-07-23] MEDS: REGADENOSON 0.4MG/5ML SYRINGE 0.4 MG IV (11:03)
== END 2024-07-23 23:59 | disposition home or self-care (01) ==
LOC: RAD 07:58
PROVIDERS: PCP Physician Assistant; Visit Provider Nurse Practitioner Family
DX: I25.10 Atherosclerotic heart disease of native coronary artery without angina pectoris (principal); R07.9 Chest pain, unspecified; R06.02 Shortness of breath
CPT/HCPCS: 78452; 93017; 93018; A9502; J2785

== ENCOUNTER 2024-08-04 10:15 | Outpatient (CLI) | payer MEDICAID, SELFPAY ==
[2024-08-04 10:32] LABS: Basophils % 0.4 % (0.1-2.0); Eosinophils # 0.2 K/mm3 (0.0-0.4); Eosinophils % 1.5 % (0.1-12.0); Hematocrit 51.8 % (42.0-52.0); Lymphocytes # 3.4 K/mm3 (0.7-4.5); Lymphocytes % 31.3 % (10-50); Mean Corpuscular HGB Conc 35.5 g/dL (31.8-35.4); Mean Corpuscular Hemoglobin 34.1 pg (27.0-31.2); Mean Corpuscular Volume 96.1 fl (80-94); Mean Platelet Volume 10.1 fl (7.4-10.4); Monocytes # 0.8 K/mm3 (0.1-1.0); Monocytes % 7.3 % (1.7-9.3); Neutrophils # 6.4 K/mm3 (1.8-7.8); Neutrophils % 59.3 % (37.0-80.0); Platelet Count 256 K/mm3 (142-424); Red Blood Count 5.39 M/mm3 (4.60-6.20); Red Cell Distribution Width 13.1 % (11.5-17.5); White Blood Count 10.8 K/mm3 (4.8-10.8)
[2024-08-04 11:29] LABS: Hemoglobin 18.4 g/dL (14.1-18.0)
[2024-08-04 11:31] LABS: Albumin Level 4.5 g/dl (3.5-5.0); Chloride 109 mmol/L (98-107); Sodium 135 mmol/L (136-145)
[2024-08-04 11:32] LABS: Potassium 4.4 mmoL/L (3.5-5.1)
[2024-08-04 11:34] LABS: Alanine Aminotransferase 58 U/L (12-78); Anion Gap 10.4 mEq/L (5-15); Aspartate Amino Transferase 47 U/L (17-59); Bilirubin,Unconjugated 0.5 mg/dL (0.0-1.1); Blood Urea Nitrogen 18 mg/dl (9-20); Carbon Dioxide 20 mmol/L (22.0-30.0); Cholesterol 182 mg/dl (140-200); Estimated Glomerular Filt Rate 55 ml/min (>60); GFR (African American) 67 ML/MIN (>60); Total Protein,Serum 7.5 g/dl (6.3-8.2); Triglycerides 185 mg/dl (30-150); VLDL Cholesterol 37 mg/dL (0-40)
[2024-08-04 11:35] LABS: Alkaline Phosphatase 111 U/L (38-126); Bilirubin,Direct 0.3 mg/dl (0.0-0.4); Bilirubin,Indirect 0.5 mg/dL (0.0-0.9); Bilirubin,Total 0.8 mg/dl (0.2-1.3); Calcium 9.8 mg/dl (8.4-10.2); Chol/HDL Ratio 2.8 (1-3.5); Glucose 96 mg/dl (74-100); HDL Cholesterol 64 mg/dl (40-60); Magnesium 1.7 mg/dl (1.6-2.3)
[2024-08-04 11:41] LABS: NT Pro Brain Natriuretic Pep. 4090 pg/mL (0-125)
[2024-08-04 11:46] LABS: Direct LDL Cholesterol 74.93 mg/dL (100-129)
[2024-08-04 12:02] LABS: Thyroid Stimulating Hormone 1.86 uIU/mL (0.465-4.68)
[2024-08-04 12:07] LABS: Free T4 (Free Thyroxine) 0.86 ng/dl (0.78-2.19)
== END 2024-08-04 23:59 | disposition home or self-care (01) ==
LOC: LAB 10:16
PROVIDERS: PCP Physician Assistant; Visit Provider Physician Assistant
DX: I25.118 Atherosclerotic heart disease of native coronary artery with other forms of angina pectoris (principal); I10 Essential (primary) hypertension; I50.20 Unspecified systolic (congestive) heart failure; Z95.810 Presence of automatic (implantable) cardiac defibrillator; I42.8 Other cardiomyopathies; I11.0 Hypertensive heart disease with heart failure; I50.23 Acute on chronic systolic (congestive) heart failure; E78.5 Hyperlipidemia, unspecified; N28.9 Disorder of kidney and ureter, unspecified; Z72.0 Tobacco use; I50.22 Chronic systolic (congestive) heart failure
CPT/HCPCS: 36415; 80048; 80061; 80076; 83735; 83880; 84439; 84443; 85025

== ENCOUNTER 2024-08-15 13:49 | Emergency (ER) | payer MEDICAID, SELFPAY ==
[2024-08-15] VITALS (7 sets, daily range): BP systolic 95–127; BP diastolic 60–82; PULSE 68–78; RESP 11–20; TEMP 36.7–36.8; O2SAT 94–100; BMI 42.3
--- NOTE | 2024-08-15 13:48 | PC.NURSE ---
DR KC AT BEDSIDE
--- NOTE | 2024-08-15 13:50 | ECG_ITS ---
APPROVED REPORT Exam: Resting ECG HR:77 bpm ECG Measurements Heart Rate 77 AXES UT 180 P 53 QRSd 109 QRS 0 QT 425 T 158 QTc 457 Conclusion SINUS RHYTHM WITH OCCASIONAL VENTRICULAR PREMATURE COMPLEXES LEFT VENTRICULAR HYPERTROPHY AND ST-T CHANGE [VOLTAGE CRITERIA PLUS ST/T ABNORMALITY] ABNORMAL ECG T wave inversion in lateral leads with intermittent PVCs, sinus rhythm Electronically signed by : CATRACHO CABALLERO, 08/17/2024 22:09:31
--- NOTE | 2024-08-15 13:52 | PC.NURSE ---
fingerstick glucose 109 at 1352
--- NOTE | 2024-08-15 13:58 | XR_ITS ---
PROCEDURE INFORMATION: Exam: XR Chest Exam date and time: 08/15/2024 2:05 PM Age: 44 years old Clinical indication: Shortness of breath; Patient HX: Cp, nausea, SOA; Additional info: Near syncope TECHNIQUE: Imaging protocol: Radiologic exam of the chest. Views: 1 view. COMPARISON: CR XR CHEST 2V 02/28/2023 07:24 FINDINGS: Tubes, catheters and devices: Left subclavian AICD. EKG leads. Lungs: Unremarkable. No consolidation. Pleural spaces: Unremarkable. No pleural effusion. No pneumothorax. Heart/Mediastinum: Unremarkable. No cardiomegaly. Diaphragm: Unchanged mild right diaphragm elevation. Bones/joints: Unremarkable. IMPRESSION: No acute findings.
--- NOTE | 2024-08-15 14:17 | ED_ITS ---
Discharge Plan Disposition Patient Disposition: Home, Self-Care Prescriptions Prescriptions: No Action potassium chloride [Klor-Con M20] 20 mEq tablet,ER particles/crystals 20 meq PO BID doxazosin 4 mg tablet 4 mg PO HS isosorbide mononitrate 30 mg tablet extended release 24 hr 30 mg PO DAILY Qty: 30 2RF atorvastatin 40 mg tablet 40 mg PO HS Qty: 90 3RF Xarelto 15 mg tablet 15 mg PO DAILY Qty: 30 2RF Rx Instructions: must administer with evening meal eplerenone 50 mg tablet 50 mg PO DAILY Qty: 90 3RF torsemide 100 mg tablet 100 mg PO .sat, sat and fridays Qty: 90 1RF sacubitril-valsartan [Entresto] 97-103 mg tablet 1 tab PO BID Qty: 60 2RF carvedilol 25 mg tablet 50 mg PO BID 30 Days Qty: 120 5RF Referrals Follow up/Referrals: Lu Ma PA [Primary Care Provider] - See instructions Activity Restrictions/Add. Instructions Additional Instructions/Restrictions: At this time it was felt you are safe to be discharged home. If new or worsening symptoms please do not hesitate to return the emergency department. Please come to see Dr. Aguirre at 11 AM on Saturday morning, come to the waiting room and tell them that he wanted you seen at this time. Clinical Impressions Clinical Impression: CHF (congestive heart failure), Syncope Print Language Print Language: Danish Discharge ED Provider: Rivas Gomez General Adult HPI <Rivas Gomez MD - Last Filed: 08/15/24 15:05> General Chief complaint: Weakness Stated complaint: Dizzy Time Seen by Provider: 08/15/24 13:53 Mode of Arrival: EMS Source of Information: Patient and EMS Limitations: No Limitations Description of Symptoms (Recalled from ER Triage Doc. by RN): pt was bowling. felt weak and dizzy. vomited. History of Present Illness HPI narrative: Please note that above description of symptoms, in this electronic medical record under categorization of recalled from ER triage doctor by RN are reflective of an initial nursing assessment, however, is not reflective of my full history and physical exam that was personally taken and clarified. Consequentially, this preceding description of symptoms, which may include the patient's categorized chief complaint in the EMR, do not reflect my personal clinical impression, and the ultimate description of history of present illness and patient stated complaints should be deferred to this section of the note. Unless stated otherwise or congruent with this section of the note, additional signs, symptoms, or incongruence should be interpreted as inaccurate with my clinical impression. Related Data Home Medications ?Medication ?Instructions ?Recorded ?Confirmed doxazosin 4 mg tablet 4 mg PO HS 07/07/24 08/04/24 potassium chloride 20 mEq 20 meq PO BID 08/04/24 08/04/24 tablet,extended release(part/cryst) (Klor-Con M) Previous Rx's ?Medication ?Instructions ?Recorded atorvastatin 40 mg tablet 40 mg PO HS High cholesterol #90 03/25/24 tabs isosorbide mononitrate 30 mg 30 mg PO DAILY #30 tabs 07/07/24 tablet,extended release 24 hr rivaroxaban 15 mg tablet (Xarelto) 15 mg PO DAILY #30 tabs 07/16/24 eplerenone 50 mg tablet 50 mg PO DAILY #90 tabs 08/06/24 sacubitril 97 mg-valsartan 103 mg 1 tab PO BID #60 tabs 08/06/24 tablet (Entresto) torsemide 100 mg tablet 100 mg PO .mon, sat and fridays08/06/24 #90 tabs carvedilol 25 mg tablet 50 mg (2 x 25 mg) PO BID heart 30 08/14/24 days #120 tabs Allergies Allergy/AdvReac Type Severity Reaction Status Date / Time spironolactone (From AdvReac Severe Verified 08/04/24 09:17 Aldactone) [facility] <Rivas Gomez MD - Last Filed: 08/15/24 15:05> [facility] Disclaimer: The information contained in this section may have been updated after the patient was seen, as this information can be updated by other users. Medical History (Updated 08/15/24 @ 17:28 by Channing Cook MD) Elevated hemoglobin History of myocardial infarction Angina pectoris Dyspnea Hypertension HFrEF (heart failure with reduced ejection fraction) Acute dyspnea Lower extremity edema Urinary tract pain Automatic implantable cardioverter-defibrillator in situ Nonischemic cardiomyopathy Presence of external cardiac defibrillator Medical non-compliance Tobacco use Elevated troponin Coronary artery disease Hyperlipidemia Renal insufficiency Surgical History History of cardiac catheterization Family History Other Diabetes Family history of acute congestive heart failure Family history of hyperlipidemia Family history of hypertension Family history of myocardial infarction Social History Smoking Status: Never smoker years smoked: 15 alcohol intake: current substance use type: denies use current occupational status: employed Travel in the last 8 weeks: None Have you lived/traveled outside [place] in past 30 days?: No Contact w/someone who lives/traveled outside [place] past 30 days?: No Exposure to someone with infectious disease in past 14 days?: No Do you have a fever (greater than 100.4 F or 38 C)?: No Have you tested positive for COVID-19: No Exposed to someone with COVID-19 in past 14 days?: No Do you have a sore throat?: No Do you have a cough?: No Do you have any weakness?: No Do you have any diarrhea?: No Are you experiencing any unusual bleeding?: No Do you have any muscle aches/pain?: No Do you have any abdominal pain?: No Are you experiencing loss of taste or smell?: No Other Medical History Have you received the Flu Vaccine for this season: No Have you received the Pneumonia Vaccine: No <Rivas Gomez MD - Last Filed: 08/15/24 15:05> ROS Obtained: Yes All systems reviewed & no additional complaints except as documented Physical Exam <Rivas Gomez MD - Last Filed: 08/15/24 15:05> General General appearance: alert Head Head exam: atraumatic and normocephalic Eye Eye exam: Present normal appearance, PERRL and EOMI Neck Neck exam: Present normal inspection, full ROM and trachea midline Respiratory Respiratory exam: Absent respiratory distress, wheezes, stridor, accessory muscle use or prolonged expiratory phase Cardiovascular Cardiovascular exam: Present other (Pulses equal symmetric in upper and lower extremities) Abdominal Exam Abdominal exam: Present soft; Absent distention, tenderness or pulsatile mass Extremities Exam Extremities exam: Absent edema Neurological Exam Neurological exam: Present alert, oriented X3 and CN II-XII intact; Absent motor sensory deficit Skin Skin exam: Present warm and dry; Absent diaphoresis or erythema Medical Decision Making <Rivas Gomez MD - Last Filed: 08/15/24 15:05> Medical Records Medical records reviewed: Yes I reviewed the patient's medical records. Screening: Per USPSTF and CDC recommendations, given the prevalence of disease in our region, it is our hospital?s policy to screen for HIV and viral Hepatitis for all patients aged 18 and over and those with ongoing risk factors. D[place]in Inquiry Pt receiving controlled substance: No Dallin was queried for this patient: No Vital Signs: 08/15/24 13:48 08/15/24 14:30 08/15/24 15:00 Temperature 98.3 F Temperature Source Oral Pulse Rate 76 75 Pulse Rate [Right] 77 Respiratory Rate 18 15 11 L Blood Pressure 96/60 L 111/82 Blood Pressure [Right Arm] 127/73 Blood Pressure Mean Blood Pressure Mean [Right Arm] 91 02 Sat by Pulse Oximetry 100 94 L 95 Oxygen Delivery Method Room Air Room Air 08/15/24 15:30 08/15/24 16:01 08/15/24 16:30 Temperature Temperature Source Pulse Rate 68 74 73 Pulse Rate [Right] Respiratory Rate 18 16 17 Blood Pressure 113/72 112/77 95/68 L Blood Pressure [Right Arm] Blood Pressure Mean 91 82 Blood Pressure Mean [Right Arm] 02 Sat by Pulse Oximetry 97 96 99 Oxygen Delivery Method Room Air Lab Data Lab Results 08/15/24 13:59: VBG pH 7.36, VBG pCO2 43.8, VBG pO2 46.0 H, VBG HCO3 24.2, VBG Total CO2 25.6, VBG O2 Saturation 82.4 H, VBG Base Excess -1.2, VBG Lactic Acid 3.5 H 08/15/24 14:15: WBC 12.2 H, RBC 5.36, Hgb 18.0, Hct 51.3, MCV 95.7 H, MCH 33.6 H , MCHC 35.1, RDW 13.2, Plt Count 273, MPV 10.5 H, Neut % (Auto) 61.8, Lymph % (Auto) 29.8, [place] % (Auto) 6.4, Eos % (Auto) 1.3, Baso % (Auto) 0.5, Neut # (Auto) 7.5, Lymph # (Auto) 3.6, [place] # (Auto) 0.8, Eos # (Auto) 0.2, Baso # (Auto) 0.1, PT 11.3, INR 1.03, APTT 31.2 H, Sodium 138, Potassium 4.5, Chloride 104, Carbon Dioxide 22, Anion Gap 16.5 H, BUN 26 H, Creatinine 1.80 H, Estimated Creat Clear 55, Estimated GFR 41 L, Est GFR ( Amer) 50 L, Glucose 107 H, Calcium 9.3, Magnesium 1.6, Total Bilirubin 1.1, AST 58, ALT 58, Alkaline Phosphatase 114, Troponin I 0.03, NT-Pro-B Natriuret Pep 701 H, Total Protein 7.8, Albumin 4.7, Globulin 3.1, Albumin/Globulin Ratio 1.5, HIV Ag/Ab Combo Qual Negative 08/15/24 16:47: Troponin I 0.03 08/15/24 14:15 08/15/24 14:15 Orders (Tests/Meds): ED MEDICATIONS Discontinued Medications Generic Name Dose Route Start Last Admin Trade Name Freq PRN Reason Stop Dose Admin Ondansetron HCl 4 mg 08/15/24 14:26 08/15/24 14:27 Ondansetron 4mg/2ml Vial IV 08/15/24 14:27 4 mg ONCE ONE Administration ORDERS Category Date Time Status POCUS Point of Care (ER Only) Stat Exams 08/15/24 13:58 Ordered XR chest portable Stat Exams 08/15/24 13:58 Completed Complete Blood Count Auto Diff Stat Lab 08/15/24 14:15 Completed Comprehensive Metabolic Panel Stat Lab 08/15/24 14:15 Completed HIV Combo Stat Lab 08/15/24 14:15 Completed Hepatitis C Ab Qual. W/ RFX Stat Lab 08/15/24 14:15 Received Lactic Acid Stat Lab 08/15/24 13:59 Ordered Magnesium Stat Lab 08/15/24 14:15 Completed NT Pro Brain Natriuretic Pep. Stat Lab 08/15/24 14:15 Completed PT INR [Prothrombin Time INR] Stat Lab 08/15/24 14:15 Completed PTT [Activated Partial Thrombo Time] Stat Lab 08/15/24 14:15 Completed Troponin I Q3H Lab 08/15/24 16:47 Completed Troponin I Q3H Lab 08/15/24 20:00 Ordered Troponin I Stat Lab 08/15/24 14:15 Completed Venous Blood Gas Stat RT 08/15/24 13:59 Completed Medical Decision Narrative: This a 44-year-old male CHF, CAD, diabetes, AICD in place, cardiomyopathy on Xarelto presenting with near syncope. Patient states that he was bowling and felt diaphoretic, nauseated, lightheaded, nearly syncopized. Laid down on the floor and did leg lift, felt a lot better ambulance was called and brought patient to the emergency department. On arrival, has no acute complaints. He does feel unwell and nauseated, but no shortness of breath, chest pain, or other symptoms at this time. History was obtained via conversation with patient and EMS. On arrival, patient hemodynamically stable, alert, [oriented x4, ][appropriate, ]GCS [15], moving all extremities spontaneously, pupils equal and reactive to light. Full physical exam performed and significant for very well- appearing male no acute distress. Lungs are clear, cardiac exam without murmurs gallops or rubs. Lower extremities without edema. Neurologically intact. Differential includes near syncope, metabolic abnormality, intracranial, ACS, [place], CHF, among others. Patient placed on continuous cardiac monitoring and continuous pulse ox with initial blood pressure 127/73, heart rate 7, saturation 100% on room air. [Independent interpretation of EKG shows] sinus rhythm 77 bpm with NM interval 180, QRS 109, QTc 457 intermittent PVCs. Patient does have T wave inversions in lateral leads consistent with previous EKGs. Patient was given aspirin and Zofran for symptomatic management[ and correction of underlying abnormalities]. Workup independently interpreted and significant for nonactionable CBC or chemistry. VBG nonactionable as well. Lactate mildly elevated.. On independent interpretation of imaging, cardiomegaly with pacer leads in place. No acute abnormalities. See radiology read for full review of final results. [id number] ultrasound performed, patient has not an estimated ejection fraction of 8-10. Prior to disposition, care handed off to oncoming physician. Cathodic Protection Technician disclaimer Much of this encounter note is an electronic medicare contact specialist spoken language to printed text. Electronic medicare contact specialist of the spoken language may permit errors. Although I have reviewed the note, some errors may still exist. <Channing Cook MD - Last Filed: 08/15/24 17:34> Vital Signs: 08/15/24 13:48 08/15/24 14:30 08/15/24 15:00 Temperature 98.3 F Temperature Source Oral Pulse Rate 76 75 Pulse Rate [Right] 77 Respiratory Rate 18 15 11 L Blood Pressure 96/60 L 111/82 Blood Pressure [Right Arm] 127/73 Blood Pressure Mean Blood Pressure Mean [Right Arm] 91 02 Sat by Pulse Oximetry 100 94 L 95 Oxygen Delivery Method Room Air Room Air 08/15/24 15:30 08/15/24 16:01 08/15/24 16:30 Temperature Temperature Source Pulse Rate 68 74 73 Pulse Rate [Right] Respiratory Rate 18 16 17 Blood Pressure 113/72 112/77 95/68 L Blood Pressure [Right Arm] Blood Pressure Mean 91 82 Blood Pressure Mean [Right Arm] 02 Sat by Pulse Oximetry 97 96 99 Oxygen Delivery Method Room Air Lab Data Lab Results 08/15/24 13:59: VBG pH 7.36, VBG pCO2 43.8, VBG pO2 46.0 H, VBG HCO3 24.2, VBG Total CO2 25.6, VBG O2 Saturation 82.4 H, VBG Base Excess -1.2, VBG Lactic Acid 3.5 H 08/15/24 14:15: WBC 12.2 H, RBC 5.36, Hgb 18.0, Hct 51.3, MCV 95.7 H, MCH 33.6 H , MCHC 35.1, RDW 13.2, Plt Count 273, MPV 10.5 H, Neut % (Auto) 61.8, Lymph % (Auto) 29.8, [place] % (Auto) 6.4, Eos % (Auto) 1.3, Baso % (Auto) 0.5, Neut # (Auto) 7.5, Lymph # (Auto) 3.6, [place] # (Auto) 0.8, Eos # (Auto) 0.2, Baso # (Auto) 0.1, PT 11.3, INR 1.03, APTT 31.2 H, Sodium 138, Potassium 4.5, Chloride 104, Carbon Dioxide 22, Anion Gap 16.5 H, BUN 26 H, Creatinine 1.80 H, Estimated Creat Clear 55, Estimated GFR 41 L, Est GFR ( Amer) 50 L, Glucose 107 H, Calcium 9.3, Magnesium 1.6, Total Bilirubin 1.1, AST 58, ALT 58, Alkaline Phosphatase 114, Troponin I 0.03, NT-Pro-B Natriuret Pep 701 H, Total Protein 7.8, Albumin 4.7, Globulin 3.1, Albumin/Globulin Ratio 1.5, HIV Ag/Ab Combo Qual Negative 08/15/24 16:47: Troponin I 0.03 Orders (Tests/Meds): ED MEDICATIONS Discontinued Medications Generic Name Dose Route Start Last Admin Trade Name Bolivarq PRN Reason Stop Dose Admin Ondansetron HCl 4 mg 08/15/24 14:26 08/15/24 14:27 Ondansetron 4mg/2ml Vial IV 08/15/24 14:27 4 mg ONCE ONE Administration ORDERS Category Date Time Status POCUS Point of Care (ER Only) Stat Exams 08/15/24 13:58 Ordered XR chest portable Stat Exams 08/15/24 13:58 Completed Complete Blood Count Auto Diff Stat Lab 08/15/24 14:15 Completed Comprehensive Metabolic Panel Stat Lab 08/15/24 14:15 Completed HIV Combo Stat Lab 08/15/24 14:15 Completed Hepatitis C Ab Qual. W/ RFX Stat Lab 08/15/24 14:15 Received Lactic Acid Stat Lab 08/15/24 13:59 Ordered Magnesium Stat Lab 08/15/24 14:15 Completed NT Pro Brain Natriuretic Pep. Stat Lab 08/15/24 14:15 Completed PT INR [Prothrombin Time INR] Stat Lab 08/15/24 14:15 Completed PTT [Activated Partial Thrombo Time] Stat Lab 08/15/24 14:15 Completed Troponin I Q3H Lab 08/15/24 16:47 Completed Troponin I Q3H Lab 08/15/24 20:00 Ordered Troponin I Stat Lab 08/15/24 14:15 Completed Venous Blood Gas Stat RT 08/15/24 13:59 Completed Medical Decision Narrative: This a 44-year-old male CHF, CAD, diabetes, AICD in place, cardiomyopathy on Xarelto presenting with near syncope. Patient states that he was bowling and felt diaphoretic, nauseated, lightheaded, nearly syncopized. Laid down on the floor and did leg lift, felt a lot better ambulance was called and brought patient to the emergency department. On arrival, has no acute complaints. He does feel unwell and nauseated, but no shortness of breath, chest pain, or other symptoms at this time. History was obtained via conversation with patient and EMS. On arrival, patient hemodynamically stable, alert, [oriented x4, ][appropriate, ]GCS [15], moving all extremities spontaneously, pupils equal and reactive to light. Full physical exam performed and significant for very well- appearing male no acute distress. Lungs are clear, cardiac exam without murmurs gallops or rubs. Lower extremities without edema. Neurologically intact. Differential includes near syncope, metabolic abnormality, intracranial, ACS, [place], CHF, among others. Patient placed on continuous cardiac monitoring and continuous pulse ox with initial blood pressure 127/73, heart rate 7, saturation 100% on room air. [Independent interpretation of EKG shows] sinus rhythm 77 bpm with NM interval 180, QRS 109, QTc 457 intermittent PVCs. Patient does have T wave inversions in lateral leads consistent with previous EKGs. Patient was given aspirin and Zofran for symptomatic management[ and correction of underlying abnormalities]. Workup independently interpreted and significant for nonactionable CBC or chemistry. VBG nonactionable as well. Lactate mildly elevated.. On independent interpretation of imaging, cardiomegaly with pacer leads in place. No acute abnormalities. See radiology read for full review of final results. [id number] ultrasound performed, patient has not an estimated ejection fraction of 8-10. Prior to disposition, care handed off to oncoming physician. Cathodic Protection Technician disclaimer Much of this encounter note is an electronic medicare contact specialist spoken language to printed text. Electronic medicare contact specialist of the spoken language may permit errors. Although I have reviewed the note, some errors may still exist. Channing Cook: Upon assumption of care patient was hemodynamically stable. Clinical ultrasound previously performed was reviewed by me, significantly decreased ejection fraction. Patient is not on oxygen and already has an implantable defibrillator. I discussed case with Dr. Aguirre regarding management. We will interrogate the pacemaker as well as get delta troponins to determine inpatient versus outpatient disposition. The patient was placed in observation status at 1510. Medical necessity for observational status is serial troponins and pacemaker interrogation. The patient was provided serial reevaluations cardiac monitoring while awaiting results. Results of testing during observation remarkable for flat troponins. Case discussed with Dr. Aguirre regarding management and pacemaker was interrogated which had no acute cardiac events today. Given this patient is appropriate for expedited outpatient management and will be seen Saturday morning was given multiple return precautions verbalized understanding. Procedures <Rivas Gomez MD - Last Filed: 08/15/24 15:05> Limited Ultrasound Indication:: Limited cardiac ultrasound Indication: Near syncope Identified cardiac views: -Cardiac parasternal long axis -Cardiac parasternal short axis -Cardiac apical four-chamber Findings: -Cardiac activity present -Gross wall motion abnormal. LV wall motion dysfunction -Pericardial effusion absent -Right heart strain absent -EPSS about 27, estimated EF around 8-10 Impression: -Grossly abnormal cardiac wall motion with dilated LV with estimated EF around 8-10 based on EPSS 27. Pacer wires in place Images were saved to permanent archive The study was technically adequate CPT: 98765 This study was performed by me, and I personally interpreted all images/videos. Based on my clinical judgement, these images were adequate and did not necessitate further imaging Critical Care <Rivas Gomez MD - Last Filed: 08/15/24 15:05> Critical Care Time Critical Care Time: Yes (cardiac) Attestation: On 08/15/24, the high probability of a clinically significant, sudden or life threatening deterioration of the following system(s) required my full and direct attention, intervention and personal management. The time I documented below is in addition to time spent performing reported procedures but includes the following listed in this critical care notation. Total Time Total Critical Care Time: 35
[2024-08-15 14:23] LABS: Basophils # 0.1 K/mm3 (0-0.2); Basophils % 0.5 % (0.1-2.0); Eosinophils # 0.2 K/mm3 (0.0-0.4); Eosinophils % 1.3 % (0.1-12.0); Hematocrit 51.3 % (42.0-52.0); Lymphocytes # 3.6 K/mm3 (0.7-4.5); Lymphocytes % 29.8 % (10-50); Mean Corpuscular HGB Conc 35.1 g/dL (31.8-35.4); Mean Corpuscular Hemoglobin 33.6 pg (27.0-31.2); Mean Corpuscular Volume 95.7 fl (80-94); Mean Platelet Volume 10.5 fl (7.4-10.4); Monocytes # 0.8 K/mm3 (0.1-1.0); Monocytes % 6.4 % (1.7-9.3); Neutrophils # 7.5 K/mm3 (1.8-7.8); Neutrophils % 61.8 % (37.0-80.0); Platelet Count 273 K/mm3 (142-424); Red Blood Count 5.36 M/mm3 (4.60-6.20); Red Cell Distribution Width 13.2 % (11.5-17.5); White Blood Count 12.2 K/mm3 (4.8-10.8)
[2024-08-15] MEDS: ONDANSETRON 4MG/2ML VIAL 4 MG IV (14:27)
[2024-08-15 14:29] LABS: Lactate Venous 3.5 mmol/L (0.4-2.0); VBG Base Excess -1.2 mmol/L (-2.4-2.3); VBG HCO3 24.2 mmol/L (23-30); VBG Oxygen Saturation 82.4 % (50-70); VBG PCO2 43.8 mmol/L (35-51); VBG PH 7.36 mmol/L (7.31-7.41); VBG Total CO2 25.6 mmol/L (23-27)
[2024-08-15 14:48] LABS: INR 1.03 (0.9-1.1); Prothrombin Time 11.3 seconds (9.2-12.1)
[2024-08-15 14:54] LABS: Albumin Level 4.7 g/dl (3.5-5.0); Chloride 104 mmol/L (98-107); Potassium 4.5 mmoL/L (3.5-5.1); Sodium 138 mmol/L (136-145)
[2024-08-15 14:56] LABS: Alanine Aminotransferase 58 U/L (12-78); Aspartate Amino Transferase 58 U/L (17-59); Blood Urea Nitrogen 26 mg/dl (9-20); Creatinine Clearance Estimated 55 mL/min (50-200); Estimated Glomerular Filt Rate 41 ml/min (>60); GFR (African American) 50 ML/MIN (>60)
[2024-08-15 14:57] LABS: Albumin/Globulin Ratio 1.5 (1.1-1.8); Alkaline Phosphatase 114 U/L (38-126); Bilirubin,Total 1.1 mg/dl (0.2-1.3); Calcium 9.3 mg/dl (8.4-10.2); Globulin 3.1 g/dL (1.3-3.2); Glucose 107 mg/dl (74-100); Magnesium 1.6 mg/dl (1.6-2.3); Total Protein,Serum 7.8 g/dl (6.3-8.2)
[2024-08-15 15:06] LABS: NT Pro Brain Natriuretic Pep. 701 pg/mL (0-125)
[2024-08-15 15:09] LABS: Troponin I 0.03 ng/ml (0.00-0.034)
[2024-08-15 15:13] LABS: Activated Partial Thrombo Time 31.2 seconds (22.8-30.6)
[2024-08-15 15:35] LABS: Anion Gap 16.5 mEq/L (5-15); Carbon Dioxide 22 mmol/L (22.0-30.0)
--- NOTE | 2024-08-15 16:17 | PC.NURSE ---
[facility] interrogation report received and given to Dr. Cook
[2024-08-15 16:57] LABS: HIV Combo NEGATIVE (Negative)
[2024-08-15 17:24] LABS: Troponin I 0.03 ng/ml (0.00-0.034)
[2024-08-15 18:29] LABS: Reflex Lactic Add Lactic Reflex
[2024-08-15 20:48] LABS: Hepatitis C Ab Qual. W/ RFX NEGATIVE (Negative)
== END 2024-08-15 17:42 | disposition home or self-care (01) ==
PROVIDERS: Emergency Provider Emergency Medicine; PCP Physician Assistant
DX: I50.9 Heart failure, unspecified (principal); R55 Syncope and collapse; R42 Dizziness and giddiness; R53.1 Weakness; R11.2 Nausea with vomiting, unspecified; R61 Generalized hyperhidrosis
CPT/HCPCS: 71045; 80053; 82803; 83735; 83880; 84484; 85025; 85610; 85730; 86803; 87389; 93005; 96374; 99285; J2405

== ENCOUNTER 2024-09-15 09:50 | Outpatient (CLI) | payer MEDICAID, SELFPAY ==
[2024-09-15 10:20] LABS: Basophils % 0.4 % (0.1-2.0); Eosinophils # 0.2 K/mm3 (0.0-0.4); Eosinophils % 1.8 % (0.1-12.0); Hematocrit 46.7 % (42.0-52.0); Hemoglobin 16.4 g/dL (14.1-18.0); Lymphocytes # 3.1 K/mm3 (0.7-4.5); Lymphocytes % 29.8 % (10-50); Mean Corpuscular HGB Conc 35.1 g/dL (31.8-35.4); Mean Corpuscular Hemoglobin 33.3 pg (27.0-31.2); Mean Corpuscular Volume 94.9 fl (80-94); Mean Platelet Volume 10.8 fl (7.4-10.4); Monocytes # 0.9 K/mm3 (0.1-1.0); Monocytes % 8.8 % (1.7-9.3); Neutrophils # 6.1 K/mm3 (1.8-7.8); Neutrophils % 58.9 % (37.0-80.0); Platelet Count 257 K/mm3 (142-424); Red Blood Count 4.92 M/mm3 (4.60-6.20); White Blood Count 10.4 K/mm3 (4.8-10.8)
[2024-09-15 10:52] LABS: Free T4 (Free Thyroxine) 0.81 ng/dl (0.78-2.19)
[2024-09-15 12:03] LABS: Albumin Level 4.7 g/dl (3.5-5.0); Chloride 105 mmol/L (98-107); Sodium 140 mmol/L (136-145)
[2024-09-15 12:04] LABS: Potassium 4.2 mmoL/L (3.5-5.1)
[2024-09-15 12:06] LABS: Alanine Aminotransferase 40 U/L (12-78); Anion Gap 17.2 mEq/L (5-15); Aspartate Amino Transferase 32 U/L (17-59); Bilirubin,Unconjugated 0.6 mg/dL (0.0-1.1); Blood Urea Nitrogen 27 mg/dl (9-20); Carbon Dioxide 22 mmol/L (22.0-30.0); Cholesterol 163 mg/dl (140-200); Estimated Glomerular Filt Rate 37 ml/min (>60); GFR (African American) 44 ML/MIN (>60); Total Protein,Serum 7.3 g/dl (6.3-8.2); Triglycerides 176 mg/dl (30-150); VLDL Cholesterol 35 mg/dL (0-40)
[2024-09-15 12:07] LABS: Alkaline Phosphatase 111 U/L (38-126); Bilirubin,Direct 0.2 mg/dl (0.0-0.4); Bilirubin,Indirect 0.6 mg/dL (0.0-0.9); Bilirubin,Total 0.8 mg/dl (0.2-1.3); Glucose 95 mg/dl (74-100)
[2024-09-15 12:18] LABS: Direct LDL Cholesterol 70.01 mg/dL (100-129)
[2024-09-15 12:37] LABS: Thyroid Stimulating Hormone 3.14 uIU/mL (0.465-4.68)
[2024-09-15 13:12] LABS: Chol/HDL Ratio 3.4 (1-3.5); HDL Cholesterol 48 mg/dl (40-60)
== END 2024-09-15 23:59 | disposition home or self-care (01) ==
LOC: LAB 09:50
PROVIDERS: PCP Physician Assistant; Visit Provider Nurse Practitioner
DX: R94.39 Abnormal result of other cardiovascular function study (principal); I10 Essential (primary) hypertension; E78.5 Hyperlipidemia, unspecified
CPT/HCPCS: 36415; 80048; 80061; 80076; 84439; 84443; 85025

== ENCOUNTER 2024-09-15 23:00 | Observation (INO) | payer MEDICAID, SELFPAY ==
--- NOTE | 2024-09-15 23:08 | ECG_ITS ---
APPROVED REPORT Exam: Resting ECG HR:72 bpm ECG Measurements Heart Rate 72 AXES SD 190 P 47 QRSd 101 QRS 5 QT 424 T 135 QTc 448 Conclusion SINUS RHYTHM MODERATE T-WAVE ABNORMALITY, CONSIDER LATERAL ISCHEMIA [-0.1+ mV T-WAVE IN I/aVL/V5/V6] Lateral ischemic changes stable from prior, no STEMI Electronically signed by : CARLEY BERMUDEZ, 09/16/2024 06:29:20
[2024-09-15 23:14] VITALS: BP 171/100; PULSE 72; RESP 20; TEMP 36.8; O2SAT 98; BMI 41.5
--- NOTE | 2024-09-15 23:16 | XR_ITS ---
PROCEDURE INFORMATION: Exam: XR Chest Exam date and time: 09/15/2024 11:25 PM Age: 44 years old Clinical indication: Pain; Chest pressure; Additional info: Chest pain TECHNIQUE: Imaging protocol: Radiologic exam of the chest. Views: 2 views. COMPARISON: CR XR CHEST PORTABLE 08/15/2024 2:05 PM FINDINGS: Tubes, catheters and devices: Cardiac pacemaker/defibrillator on the left chest. Lungs: Unremarkable. No consolidation. Pleural spaces: Unremarkable. No pleural effusion. No pneumothorax. Heart/Mediastinum: Mild cardiomegaly. Bones/joints: Unremarkable. IMPRESSION: No acute disease.
--- NOTE | 2024-09-15 23:18 | PC.NURSE ---
Pt awake alert and oriented Skin pink warm and dry Resp full and easy Pt in Sr per continuous heart monitor with frequent PVCs Speech clear and appropriate.
[2024-09-15 23:20] VITALS: BP 142/93; RESP 13
--- NOTE | 2024-09-15 23:35 | [facility].EDCP ---
Discharge Plan Disposition Patient Disposition: Admitted Condition: Fair Clinical Impressions Clinical Impression: Non-ST elevation AR (NSTEMI), Kidney dysfunction Chest pain Qualifiers: Chest pain type: unspecified Qualified Code(s): R07.9 - Chest pain, unspecified Discharge ED Provider: Brenna Tang General Chief Complaint: Chest Pain Stated Complaint: chest pain, high bp Time Seen by Provider: 09/15/24 23:16 Mode of Arrival: Ambulatory Source of Information: Patient Limitations: No Limitations Description of Symptoms (Recalled from ER Triage Doc. by RN): chest pain intermittantly for past few days Pain now since 2099 History of Present Illness HPI narrative: 44-year-old male with history of abnormal stress test, CHF, AICD, CAD, hypertension, obesity, hyperlipidemia presents to the ER with concerns of chest pain that started approximately 2 hours prior to arrival. It was in the center/left chest described as pressure, associated with mild lightheadedness and nausea. Pain was initially 5 out of 10 but patient reports it has spontaneously improved to a 1 out of 10. He does not have any rescue medications for chest pain at home and just takes a baby aspirin as well as a baseline nitrate. He has not taken any additional meds for his symptoms. He denies headache, numbness, tingling, weakness, abdominal pain, fever, chills, or other associated symptoms at this time. He saw cardiology earlier today and they are planning to do a left heart cath. Related Data Home Medications ?Medication ?Instructions ?Recorded ?Confirmed doxazosin 4 mg tablet 4 mg PO HS 07/07/24 09/16/24 potassium chloride 20 mEq 20 meq PO BID 08/04/24 09/15/24 tablet,extended release(part/cryst) (Klor-Con M) allopurinol 100 mg tablet 100 mg PO DAILY 09/15/24 09/16/24 ergocalciferol (vitamin D2) 1,250 1,250 mcg PO WEEKLY 09/15/24 09/16/24 mcg (50,000 unit) capsule ezetimibe 10 mg tablet 10 mg PO DAILY 09/15/24 09/16/24 magnesium oxide 400 mg (241.3 mg 400 mg PO DAILY 09/15/24 09/16/24 magnesium) tablet Previous Rx's ?Medication ?Instructions ?Recorded atorvastatin 40 mg tablet 40 mg PO HS High cholesterol #90 03/25/24 tabs rivaroxaban 15 mg tablet (Xarelto) 15 mg PO DAILY #30 tabs 07/16/24 eplerenone 50 mg tablet 50 mg PO DAILY #90 tabs 08/06/24 sacubitril 97 mg-valsartan 103 mg 1 tab PO BID #60 tabs 08/06/24 tablet (Entresto) torsemide 100 mg tablet 100 mg PO .sat, sat and fridays08/06/24 #90 tabs carvedilol 25 mg tablet 50 mg (2 x 25 mg) PO BID heart 30 08/14/24 days #120 tabs ranolazine 500 mg tablet,extended 500 mg PO BID #60 tabs 08/17/24 release,12 hr varenicline tartrate 0.5 mg (11)-1 See Rx Instructions PO PER PKG DIR 09/15/24 mg (42) tablets in a dose pack #53 tabs (Chantix Starting Month Box) varenicline tartrate 1 mg tablet 1 mg PO BID 12 weeks #168 tabs 09/15/24 (Chantix) Allergies Allergy/AdvReac Type Severity Reaction Status Date / Time spironolactone (From AdvReac Severe Verified 09/15/24 09:19 Aldactone) [facility] Disclaimer: The information contained in this section may have been updated after the patient was seen, as this information can be updated by other users. Medical History Elevated hemoglobin History of myocardial infarction Angina pectoris Dyspnea Hypertension HFrEF (heart failure with reduced ejection fraction) Acute dyspnea Lower extremity edema Urinary tract pain Automatic implantable cardioverter-defibrillator in situ Nonischemic cardiomyopathy Presence of external cardiac defibrillator Medical non-compliance Tobacco use Elevated troponin Coronary artery disease Hyperlipidemia Renal insufficiency Surgical History History of cardiac catheterization Family History Other Diabetes Family history of acute congestive heart failure Family history of hyperlipidemia Family history of hypertension Family history of myocardial infarction Social History (Updated 09/16/24 @ 01:44 by Angela Gonzalez RN) Smoking Status: Never smoker years smoked: 15 alcohol intake: current substance use type: denies use current occupational status: employed Travel in the last 8 weeks: None Have you lived/traveled outside [place] in past 30 days?: No Contact w/someone who lives/traveled outside [place] past 30 days?: No Exposure to someone with infectious disease in past 14 days?: No Do you have a fever (greater than 100.4 F or 38 C)?: No Have you tested positive for COVID-19: No Exposed to someone with COVID-19 in past 14 days?: No Do you have a sore throat?: No Do you have a cough?: No Do you have any weakness?: No Are you experiencing any nausea/vomitting?: No Do you have any diarrhea?: No Are you experiencing any unusual bleeding?: No Do you have any muscle aches/pain?: No Do you have any abdominal pain?: No Are you experiencing loss of taste or smell?: No Other Medical History Have you received the Flu Vaccine for this season: No Have you received the Pneumonia Vaccine: No ROS Obtained: Yes Systems reviewed as appropriate & no additional complaints except as documented Physical Exam General General appearance: alert, in no apparent distress and obese Head Head exam: atraumatic and normocephalic Eye Eye exam: Present PERRL and EOMI ENT ENT exam: Present mucous membranes moist Neck Neck exam: Present normal inspection and full ROM Chest Chest inspection: Present symmetric chest wall rise; Absent tenderness Respiratory Respiratory exam: Present normal lung sounds bilaterally; Absent respiratory distress, wheezes or stridor Cardiovascular Cardiovascular exam: Present regular rate and irregular rhythm (Multiple PVCs) Abdominal Exam Abdominal exam: Present soft; Absent distention or tenderness Extremities Exam Extremities exam: Present full ROM; Absent edema Neurological Exam Neurological exam: Present alert and oriented X3; Absent motor sensory deficit Psychiatric Psychiatric exam: Present normal affect and normal mood Skin Skin exam: Present warm and dry HEART Score HEART Score HEART Score assessment performed?: Yes History (anamnesis): Moderately suspicious ECG: Non-specific disturbance Age: <45 years Risk factors: Atherosclerosis history Troponin: </= normal limit HEART Score: 4 Critical Care Critical Care Time Critical Care Time: Yes Attestation: On 09/15/24, the high probability of a clinically significant, sudden or life threatening deterioration of the following system(s) (cardiac) required my full and direct attention, intervention and personal management. The time I documented below is in addition to time spent performing reported procedures but includes the following listed in this critical care notation. Total Time Total Critical Care Time: 35 Medical Decision Making Medical Records Medical records reviewed: Yes I reviewed the patient's medical records. MR Comment: Cardiology note from visit earlier today was reviewed by me, they are planning for outpatient left heart cath, patient has known abnormal ECG and extensive cardiac risk factors. [place] Inquiry Pt receiving controlled substance: No Vital Signs Vital Signs: 09/15/24 23:14 09/15/24 23:20 09/15/24 23:47 Temperature 98.2 F Temperature Source Oral Pulse Rate 60 Pulse Rate [Right Brachial] 72 Respiratory Rate 20 13 12 Blood Pressure 142/93 H 104/84 L Blood Pressure [Right Arm] 171/100 H Blood Pressure Mean [Right Arm] 123 Blood Pressure Source Blood Pressure Source [Right Arm] Automatic Cuff Blood Pressure Position [Right Arm] Sitting 02 Sat by Pulse Oximetry 98 98 Oxygen Delivery Method Room Air 09/16/24 00:00 09/16/24 01:10 Temperature 98.2 F Temperature Source Pulse Rate 72 68 Pulse Rate [Right Brachial] Respiratory Rate 12 12 Blood Pressure 119/82 130/60 Blood Pressure [Right Arm] Blood Pressure Mean [Right Arm] Blood Pressure Source Automatic Cuff Blood Pressure Source [Right Arm] Blood Pressure Position [Right Arm] 02 Sat by Pulse Oximetry 98 Oxygen Delivery Method Room Air Lab Data Labs: Lab Results 09/15/24 00:00: WBC 12.8 H, RBC 4.73, Hgb 16.1, Hct 44.9, MCV 94.9 H, MCH 34.0 H, MCHC 35.9 H, RDW 12.7, Plt Count 261, MPV 10.7 H, Neut % (Auto) 57.0, Lymph % (Auto) 33.2, Wood % (Auto) 7.8, Eos % (Auto) 1.5, Baso % (Auto) 0.3, Neut # (Auto) 7.3, Lymph # (Auto) 4.3, Wood # (Auto) 1.0, Eos # (Auto) 0.2, Baso # (Auto) 0.0 09/16/24 00:00: PT 12.3 H, INR 1.13 H, D-Dimer < 0.25, Sodium 137, Potassium 3.8, Chloride 106, Carbon Dioxide 24, Anion Gap 10.8, BUN 25 H, Creatinine 1.80 H, Estimated Creat Clear 56, Estimated GFR 41 L, Est GFR ( Amer) 50 L, Glucose 89, Calcium 10.1, Total Bilirubin 1.2, AST 34, ALT 41, Alkaline Phosphatase 107, Troponin I 0.02, NT-Pro-B Natriuret Pep 3230 H, Total Protein 7.5, Albumin 4.7, Globulin 2.8, Albumin/Globulin Ratio 1.7 09/15/24 00:00 09/16/24 00:00 Response Orders (Tests/Meds): ED MEDICATIONS Generic Name Dose Route Start Last Admin Trade Name Freq PRN Reason Stop Dose Admin Enoxaparin Sodium 150 mg 09/16/24 13:30 Enoxaparin 150mg/Ml Syringe SUBCUT 10/16/24 13:29 Q12H JOLYNN Pantoprazole Sodium 40 mg/ 100 mls @ 100 mls/hr 09/16/24 01:18 09/16/24 02:10 Sodium Chloride IV 09/16/24 02:17 100 mls/hr ONCE ONE Administration Morphine Sulfate 2 mg 09/16/24 01:24 Morphine 2mg/Ml Syringe IV 10/16/24 01:23 Q2HP PRN Severe Pain (7-10) Nitroglycerin 0.4 mg 09/15/24 23:16 Nitroglycerin 0.4mg Sl Tablet SL 09/16/24 23:16 Q5MINP PRN Chest Pain Ondansetron HCl 4 mg 09/16/24 01:24 Ondansetron 4mg/2ml Vial IV 10/16/24 01:23 Q8HP PRN Nausea Sodium Chloride 10 ml 09/16/24 01:24 Sodium Chloride 0.9% 10ml Flush Syringe IV 10/16/24 01:23 NEEDED PRN Maintain IV Site Discontinued Medications Generic Name Dose Route Start Last Admin Trade Name Freq PRN Reason Stop Dose Admin Aspirin 324 mg 09/15/24 23:16 09/15/24 23:38 Aspirin 81mg Chewable Tablet PO 09/15/24 23:17 324 mg ONCE ONE Administration Enoxaparin Sodium 150 mg 09/16/24 01:30 Enoxaparin 150mg/Ml Syringe SUBCUT 10/16/24 01:29 Q12H JOLYNN Enoxaparin Sodium 50 mg 09/16/24 01:30 09/16/24 02:10 Enoxaparin 100mg/Ml Syringe SUBCUT 09/16/24 01:31 50 mg ONCE ONE Administration Morphine Sulfate 4 mg 09/16/24 00:56 09/16/24 02:11 Morphine 4mg/Ml Syringe IV 09/16/24 00:57 Not Given ONCE ONE Ondansetron HCl 4 mg 09/16/24 00:56 09/16/24 02:11 Ondansetron 4mg/2ml Vial IV 09/16/24 00:57 Not Given ONCE ONE ORDERS Category Date Time Status XR chest 2V Stat Exams 09/15/24 23:16 Completed Complete Blood Count Auto Diff Stat Lab 09/15/24 00:00 Completed Comprehensive Metabolic Panel Stat Lab 09/15/24 00:00 Completed D-Dimer Stat Lab 09/15/24 00:00 Completed NT Pro Brain Natriuretic Pep. Stat Lab 09/15/24 00:00 Completed Prothrombin Time INR Stat Lab 09/15/24 00:00 Completed Troponin I Q3H Lab 09/16/24 02:30 Ordered Troponin I Q3H Lab 09/16/24 05:30 Ordered Troponin I Stat Lab 09/15/24 00:00 Completed MDM Narrative Medical Decision Narrative: In summary, this 44-year-old male with extensive cardiac history as described in the HPI which increases his overall morbidity and the amount of data to be reviewed and is not at goal therapy presents to the emergency department today with concerns of chest pain with associated mild dizziness, nausea, symptoms of spontaneously improved since onset. On initial evaluation patient is initially hypertensive but otherwise hemodynamically stable, afebrile, he has multiple PVCs causing an irregular rhythm, no chest tenderness, no significant peripheral edema, GCS 15, no neurodeficits. Differential diagnosis includes but is not limited to ACS, PE, arrhythmia, electrolyte abnormality, dehydration, pneumothorax, pneumonia, esophageal spasm, among others. Based on these concerns, I ordered serum labs including D-dimer, troponin, cardiac workup. ECG personally interpreted demonstrates sinus rhythm, rate 72, normal axis, normal VT and QTc, patient does have T wave inversions in leads I, aVL as well as V5 and 6, compared to previous ECGs which I reviewed this is stable and unchanged, no STEMI.. Patient received aspirin load for treatment. Labs personally reviewed demonstrate nonactionable CBC, PT/INR slightly elevated but nonactionable, D-dimer undetectable, CMP notable for kidney dysfunction which appears to be at baseline, creatinine clearance 56, initial troponin 0.02, patient has a baseline troponin of 0.02-0.03. BNP newly elevated at 3230, up from prior. Patient does not appear clinically significantly fluid overloaded. XR personally interpreted demonstrates no acute intrathoracic abnormality, see radiology read from interpretation.. Patient continues to have mild chest pain 1-2 out of 10. His blood pressure has spontaneously improved since arrival. I discussed this case with Dr. Aguirre given patient's extensive cardiac history, mildly abnormal troponin though it seems to be at baseline for him, and persistent mild pain. He recommended treating this patient as an NSTEMI with therapeutic Lovenox as well as giving the patient morphine for pain control. Because of the patient's decreased creatinine clearance, I discussed this case with the [facility] pharmacist, Frank, and he recommended dose of 100 mg subcutaneous initially. This was provided to the patient. I discussed this case with the hospitalist and included the recommendations from Dr. Aguirre and to the [facility] pharmacist. He graciously accepted the patient for admission. Patient was admitted in stable condition.
[2024-09-15] MEDS: ASPIRIN 81MG CHEWABLE TABLET 324 MG PO (23:38)
[2024-09-15 23:47] VITALS: BP 104/84; PULSE 60; RESP 12; O2SAT 98
--- NOTE | 2024-09-15 23:48 | PC.NURSE ---
Attempted IV with no success Report given to Joi PANDYA who will attempt Ultrasound IV
[2024-09-16] VITALS (22 sets, daily range): BP systolic 115–153; BP diastolic 60–93; PULSE 57–81; RESP 12–20; TEMP 36.4–36.8; O2SAT 92–100; BMI 41.5
[2024-09-16 00:07] LABS: Basophils % 0.3 % (0.1-2.0); Eosinophils # 0.2 K/mm3 (0.0-0.4); Eosinophils % 1.5 % (0.1-12.0); Hematocrit 44.9 % (42.0-52.0); Hemoglobin 16.1 g/dL (14.1-18.0); Lymphocytes # 4.3 K/mm3 (0.7-4.5); Lymphocytes % 33.2 % (10-50); Mean Corpuscular HGB Conc 35.9 g/dL (31.8-35.4); Mean Corpuscular Volume 94.9 fl (80-94); Mean Platelet Volume 10.7 fl (7.4-10.4); Monocytes % 7.8 % (1.7-9.3); Neutrophils # 7.3 K/mm3 (1.8-7.8); Platelet Count 261 K/mm3 (142-424); Red Blood Count 4.73 M/mm3 (4.60-6.20); Red Cell Distribution Width 12.7 % (11.5-17.5); White Blood Count 12.8 K/mm3 (4.8-10.8)
[2024-09-16 00:17] LABS: INR 1.13 (0.9-1.1); Prothrombin Time 12.3 seconds (9.2-12.1)
[2024-09-16 00:37] LABS: Anion Gap 10.8 mEq/L (5-15); Blood Urea Nitrogen 25 mg/dl (9-20); Carbon Dioxide 24 mmol/L (22.0-30.0); Chloride 106 mmol/L (98-107); Potassium 3.8 mmoL/L (3.5-5.1); Sodium 137 mmol/L (136-145); Troponin I 0.02 ng/ml (0.00-0.034)
[2024-09-16 00:38] LABS: Alanine Aminotransferase 41 U/L (12-78); Albumin Level 4.7 g/dl (3.5-5.0); Albumin/Globulin Ratio 1.7 (1.1-1.8); Alkaline Phosphatase 107 U/L (38-126); Aspartate Amino Transferase 34 U/L (17-59); Bilirubin,Total 1.2 mg/dl (0.2-1.3); Calcium 10.1 mg/dl (8.4-10.2); Creatinine Clearance Estimated 56 mL/min (50-200); Estimated Glomerular Filt Rate 41 ml/min (>60); GFR (African American) 50 ML/MIN (>60); Globulin 2.8 g/dL (1.3-3.2); Glucose 89 mg/dl (74-100); NT Pro Brain Natriuretic Pep. 3230 pg/mL (0-125); Total Protein,Serum 7.5 g/dl (6.3-8.2)
[2024-09-16 00:40] LABS: D-Dimer < 0.25 ug/mL (0.0-0.5)
--- NOTE | 2024-09-16 01:08 | PC.NURSE ---
Report given to Mariam PANDYA Pt transported to inpatient unit via wheelchair. Skin pink warm and dry Resp full and easy Speech clear and appropriate SR per continuous heart monitor.
--- NOTE | 2024-09-16 01:20 | PC.NURSE ---
Patient arrived to floor via wheelchair from ED at 01:16.
--- NOTE | 2024-09-16 01:26 | P.HP_ITS ---
<Statement entered by Eduardo Villalobos MD - 09/21/24 22:57> Personally evaluated patient and agree with plan of care as outlined by the LIFE SCIENCES MANAGER. History of Present Illness *Admission Date: 09/16/24 *Reason for visit:: Chest pain *History of present illness: This is a 44-year-old -[place] male who has a past medical history significant for angina, hypertension, systolic dysfunction congestive heart failure, nonischemic cardiomyopathy, coronary artery disease, hyperlipidemia, chronic kidney disease, and obesity who presents with a chief complaint of chest pain. Due to patient's symptoms, he presented to the emergency room for evaluation. While in the emergency room, chest x-ray was negative for any acute cardiopulmonary process. And patient's EKG was consistent with findings from previous EKG obtained yesterday morning and had primary electron beam operator office. This case was discussed with electron beam operator on-call who recommended admission for further management. Due to these recommendations, patient has been admitted for further management. During my evaluation patient, patient states he was evaluated by his electron beam operator who recommended left heart cath yesterday. There was a plan to perform this however patient started to experience midsternal to left chest wall chest pain, described as pressure, rated 5 out of 10, coupled with lightheadedness/nausea, it improved after patient received aspirin and nitro. Patient has known severe systolic dysfunction congestive heart failure. He reports in the past his EF was around 10 to 12%. Most recent estimation reveals an EF of 17%. Patient is currently denying any chest pain but reports gas feel ing, PND, orthopnea, swelling of the bilateral lower extremities, dyspnea with exertion, fever, chills, rigors, or diarrhea. Additional pertinent vitals obtained include a BNP of 25, creatinine 1.8, GFR 41, BNP of 3230, and troponin 0.02. [facility] Disclaimer: The information contained in this section may have been updated after the patient was seen, as this information can be updated by other users. Medical History Elevated hemoglobin History of myocardial infarction Angina pectoris Dyspnea Hypertension HFrEF (heart failure with reduced ejection fraction) Acute dyspnea Lower extremity edema Urinary tract pain Automatic implantable cardioverter-defibrillator in situ Nonischemic cardiomyopathy Presence of external cardiac defibrillator Medical non-compliance Tobacco use Elevated troponin Coronary artery disease Hyperlipidemia Renal insufficiency Surgical History History of cardiac catheterization Family History Other Diabetes Family history of acute congestive heart failure Family history of hyperlipidemia Family history of hypertension Family history of myocardial infarction Social History Smoking Status: Never smoker years smoked: 15 alcohol intake: current substance use type: denies use current occupational status: employed Travel in the last 8 weeks: None Have you lived/traveled outside US in past 30 days?: No Contact w/someone who lives/traveled outside US past 30 days?: No Exposure to someone with infectious disease in past 14 days?: No Do you have a fever (greater than 100.4 F or 38 C)?: No Have you tested positive for COVID-19: No Exposed to someone with COVID-19 in past 14 days?: No Do you have a sore throat?: No Do you have a cough?: No Do you have any weakness?: No Do you have any diarrhea?: No Are you experiencing any unusual bleeding?: No Do you have any muscle aches/pain?: No Do you have any abdominal pain?: No Are you experiencing loss of taste or smell?: No Other Medical History Have you received the Flu Vaccine for this season: No Have you received the Pneumonia Vaccine: No Review of Systems Review of Systems Review of systems:: pertinent systems reviewed and negative unless documented below Constitutional Constitutional: Reports system reviewed and no additional complaints, except as documented Eyes Eyes: Reports system reviewed and no additional complaints, except as documented ENT Ears, Nose, Mouth, and Throat: Reports system reviewed and no additional complaints, except as documented *Cardiovascular Cardiovascular: Reports chest pain *Respiratory Respiratory: Reports system reviewed and no additional complaints, except as documented *Gastrointestinal Gastrointestinal: Reports heartburn Comments: Nausea *Genitourinary Genitourinary: Reports system reviewed and no additional complaints, except as documented *Musculoskeletal Musculoskeletal: Reports system reviewed and no additional complaints, except as documented Integumentary/Breasts Skin/Breast: Reports system reviewed and no additional complaints, except as documented *Neurologic Neurologic: Reports system reviewed and no additional complaints, except as documented Psychiatric Psychiatric: Reports system reviewed and no additional complaints, except as documented Endocrine Endocrine: Reports system reviewed and no additional complaints, except as documented Hematologic/Lymphatic Hematologic/Lymphatic: Reports system reviewed and no additional complaints, except as documented Allergic/Immunologic Allergic/Immunologic: Reports system reviewed and no additional complaints, except as documented Meds Home Medications and Allergies Home Medications ?Medication ?Instructions ?Recorded ?Confirmed ?Type atorvastatin 40 mg tablet 40 mg PO HS High cholesterol #90 03/25/24 09/15/24 Rx tabs doxazosin 4 mg tablet 4 mg PO HS 07/07/24 09/15/24 History rivaroxaban 15 mg tablet (Xarelto) 15 mg PO DAILY #30 tabs 07/16/24 09/15/24 Rx potassium chloride 20 mEq 20 meq PO BID 08/04/24 09/15/24 History tablet,extended release(part/cryst) (Klor-Con M) eplerenone 50 mg tablet 50 mg PO DAILY #90 tabs 08/06/24 09/15/24 Rx sacubitril 97 mg-valsartan 103 mg 1 tab PO BID #60 tabs 08/06/24 09/15/24 Rx tablet (Entresto) torsemide 100 mg tablet 100 mg PO .mon, sat and fridays08/06/24 09/15/24 Rx #90 tabs carvedilol 25 mg tablet 50 mg (2 x 25 mg) PO BID heart 30 08/14/24 09/15/24 Rx days #120 tabs ranolazine 500 mg tablet,extended 500 mg PO BID #60 tabs 08/17/24 09/15/24 Rx release,12 hr allopurinol 100 mg tablet 100 mg PO DAILY 09/15/24 09/15/24 History ergocalciferol (vitamin D2) 1,250 1,250 mcg PO WEEKLY 09/15/24 09/15/24 History mcg (50,000 unit) capsule ezetimibe 10 mg tablet 10 mg PO DAILY 09/15/24 09/15/24 History magnesium oxide 400 mg (241.3 mg 400 mg PO DAILY 09/15/24 09/15/24 History magnesium) tablet varenicline tartrate 0.5 mg (11)-1 See Rx Instructions PO PER PKG DIR 09/15/24 09/15/24 Rx mg (42) tablets in a dose pack #53 tabs (Chantix Starting Month Box) varenicline tartrate 1 mg tablet 1 mg PO BID 12 weeks #168 tabs 09/15/24 09/15/24 Rx (Chantix) New Prescriptions to Start Prescriptions: Allergies Allergy/AdvReac Type Severity Reaction Status Date / Time spironolactone (From AdvReac Severe Verified 09/15/24 09:19 Aldactone) Exam Data for Last 24 hours Vital signs and Labs for Last 24 Hours: Temp Pulse Resp BP Pulse Ox O2 Del Method 98.2 F 68 12 130/60 98 Room Air 09/16/24 01:10 09/16/24 01:10 09/16/24 01:10 09/16/24 01:10 09/16/24 00:00 09/16/24 01:10 Laboratory Results - last 24 hr 09/15/24 00:00: WBC 12.8 H, RBC 4.73, Hgb 16.1, Hct 44.9, MCV 94.9 H, MCH 34.0 H , MCHC 35.9 H, RDW 12.7, Plt Count 261, MPV 10.7 H, Neut % (Auto) 57.0, Lymph % (Auto) 33.2, [place] % (Auto) 7.8, Eos % (Auto) 1.5, Baso % (Auto) 0.3, Neut # (Auto) 7.3, Lymph # (Auto) 4.3, [place] # (Auto) 1.0, Eos # (Auto) 0.2, Baso # (Auto) 0.0 09/16/24 00:00: PT 12.3 H, INR 1.13 H, D-Dimer < 0.25, Sodium 137, Potassium 3.8, Chloride 106, Carbon Dioxide 24, Anion Gap 10.8, BUN 25 H, Creatinine 1.80 H, Estimated Creat Clear 56, Estimated GFR 41 L, Est GFR ( Amer) 50 L, Glucose 89, Calcium 10.1, Total Bilirubin 1.2, AST 34, ALT 41, Alkaline Phosphatase 107, Troponin I 0.02, NT-Pro-B Natriuret Pep 3230 H, Total Protein 7.5, Albumin 4.7, Globulin 2.8, Albumin/Globulin Ratio 1.7 I & O for Last 24 hours: Intake & Output 09/13/24 09/14/24 09/15/24 02/26/25 23:59 23:59 23:59 23:59 Weight 135.171 kg Constitutional Constitutional: no acute distress and obese *Routine HEENT Exam Head: Present normocephalic and atraumatic Eye: Present EOMI, PERRL and normal accommodation ENT: Present mucous membranes moist *Routine Neck Exam Neck: Present supple and full ROM *Routine Respiratory Exam Respiratory: Present normal respiratory effort, able to speak in complete sentences and symmetric chest movement *Routine Cardiovascular Exam Cardiovascular: Present RRR, Normal S1 and Normal S2 *Routine Abdominal Exam Abdominal: Present soft, normoactive bowel sounds and obese *Routine Rectal Exam Rectal:: deferred *Routine Genitalia Exam Genitalia:: deferred *Routine Extremities Exam Extremities: Present full ROM, pulses intact and normal capillary refill Routine Back/Spine/Pelvis Exam Back/Spine: Present full ROM *Routine Skin Exam Skin: Present intact, dry and normal turgor *Routine Neurological Exam Neurological: Present alert, oriented X3, CN II-XII intact, moving all extremities and normal speech Routine Psychiatric Exam Psychiatric: Present normal affect, normal thought process, cooperative, good insight and good judgment H&P: Result Impressions This is a 44-year-old -[place] male who has known severe systolic dysfunction congestive heart failure with AICD in place and no evidence of ischemic heart who presents with chest pain with a planned left heart cath as an outpatient. Assessment and Plan *Assessment and plan (1) Chest pain: Status: Acute Qualifiers: Chest pain type: unspecified Qualified Code(s): R07.9 - Chest pain, unspecified Category: Medical Code(s): R07.9 - Chest pain, unspecified (2) Angina at rest: Status: Acute Category: Medical Code(s): I20.89 - Other forms of angina pectoris (3) Systolic and diastolic CHF, chronic: Status: Acute Category: Medical Code(s): I50.42 - Chronic combined systolic (congestive) and diastolic (congestive) heart failure (4) CKD (chronic kidney disease): Status: Acute Qualifiers: Chronic kidney disease stage: unspecified stage Qualified Code(s): N18.9 - Chronic kidney disease, unspecified Category: Medical Code(s): N18.9 - Chronic kidney disease, unspecified Plan on telemetryAssessment: Chest pain/angina -Will treat as NSTEMI -Recommendation by cardiology is to give therapeutic dosing of Lovenox -I discussed with pharmacy who recommends giving 150 mg SQ twice daily of enoxaparin -Will keep patient n.p.o. until evaluated by electron beam operator -Will use morphine for chest pain -Also use nitro transdermal for chest pain Systolic dysfunction congestive heart failure: HFrEF -Patient has AICD in place -Once med rec is updated, we will continue Coreg, furosemide, Entresto, and hold Xarelto (cardiology recommends therapeutic dosing of enoxaparin) Chronic kidney disease: Patient appears to be at baseline creatinine -Will monitor creatinine daily -Considering patient is given Lovenox place close attention the patient's GFR -May need to change to heparin drip-will discuss with attending Plan: Admit patient to the MedSurg unit on telemetry SCDs to bilateral lower extremity Saline lock Vital signs every 4 hours Consult cardiology N.p.o. now CBC/BMP daily Trend troponin 2 mg morphine IV push every 2 hours as needed severe pain 4 mg Zofran IV push to 8 hours. Nausea 5 40 mg Protonix IV push now Full code I will discuss this case with attending physician Dr. Villalobos and I look forward to more input
[2024-09-16] MEDS: ENOXAPARIN 100MG/ML SYRINGE 50 MG SUBCUT (02:10)
[2024-09-16] MEDS: PANTOPRAZOLE SODIUM 40 MG in 0.9 % SODIUM CHLORIDE 100 ML 100 MG IV (02:10)
[2024-09-16 03:04] LABS: Troponin I 0.02 ng/ml (0.00-0.034)
--- NOTE | 2024-09-16 04:08 | PC.NURSE ---
Pt is A/O X 4 and is independent with ambulation. He has denied pain, nausea or increased SOA since arriving to the floor. Pt has rested well. He has been NPO since his arrival
[2024-09-16 06:13] LABS: Basophils # 0.1 K/mm3 (0-0.2); Basophils % 0.4 % (0.1-2.0); Eosinophils # 0.2 K/mm3 (0.0-0.4); Eosinophils % 1.8 % (0.1-12.0); Hematocrit 43.2 % (42.0-52.0); Hemoglobin 15.5 g/dL (14.1-18.0); Lymphocytes # 4.8 K/mm3 (0.7-4.5); Mean Corpuscular HGB Conc 35.9 g/dL (31.8-35.4); Mean Corpuscular Hemoglobin 34.1 pg (27.0-31.2); Mean Corpuscular Volume 95.2 fl (80-94); Mean Platelet Volume 10.7 fl (7.4-10.4); Monocytes # 0.9 K/mm3 (0.1-1.0); Monocytes % 7.5 % (1.7-9.3); Neutrophils # 6.3 K/mm3 (1.8-7.8); Neutrophils % 51.1 % (37.0-80.0); Platelet Count 242 K/mm3 (142-424); Red Blood Count 4.54 M/mm3 (4.60-6.20); Red Cell Distribution Width 12.9 % (11.5-17.5); White Blood Count 12.3 K/mm3 (4.8-10.8)
[2024-09-16 07:01] LABS: Chloride 106 mmol/L (98-107)
[2024-09-16 07:02] LABS: Potassium 4.1 mmoL/L (3.5-5.1); Sodium 138 mmol/L (136-145)
[2024-09-16 07:03] LABS: Troponin I 0.02 ng/ml (0.00-0.034)
[2024-09-16 07:04] LABS: Blood Urea Nitrogen 24 mg/dl (9-20); Creatinine Clearance Estimated 55 mL/min (50-200); Estimated Glomerular Filt Rate 41 ml/min (>60); GFR (African American) 50 ML/MIN (>60)
[2024-09-16 07:05] LABS: Anion Gap 14.1 mEq/L (5-15); Calcium 9.7 mg/dl (8.4-10.2); Carbon Dioxide 22 mmol/L (22.0-30.0); Glucose 86 mg/dl (74-100)
--- NOTE | 2024-09-16 08:32 | EXP.CARD.CON ---
History of Present Illness History of Present Illness Consult date: 09/16/24 Requesting physician: Eduardo Villalobos Consult reason: chest pain Chief complaint: ACS/NSTEMI Additional Medical History:: 1. Hypertension, treated for many years A. Renal ultrasound, [facility], 04/2022, no obstruction. Hypertensive nephropathy noted. 2. Tobacco use 1/2 to 1 pack/day for many years 3. HFrEF A. Echo, 04/2022, [facility], EF 10-15% with global hypokinesis, grade 3 diastolic dysfunction, moderate RV enlargement with pulmonary artery end-diastolic pressure of 30 mmHg. Moderate MR. B. Echo, 07/2022, EF 10-15% C. [employer] AICD implanted, 09/17/2022 D. Echo, 07/2024, EF 10-15% 4. Coronary calcium score of 2, 04/2022, [facility]. A. LHC, 06/18/2022, mild, non-obstructive CAD, LVEDP 40 mm hg. 5. History of Pfizer COVID vaccination, early 2020 6. Hyperlipidemia A. LDL 80 2021. On statin therapy. 7. CKD, stage 3a. Secondary to HTN A. Baseline cr 1.8 with GFR around 50, 07/[address] Bermeo (sp?) in [place], [place] 8. PAF A. On Xarelto History of present illness: 44 yo male admitted through the ED last evening for worsening chest pains. Pt is well known to our practice and recently had a stress test that was abnormal for which the patient elected escalating medical therapy. He now wishes to be admitted and undergo cardiac cath. Troponins stable and WNL. Elevated BNP noted with stable renal functions. CXR unremarkable. Pt does admit to wt gain of about 7 lbs recently. [facility] Disclaimer: The information contained in this section may have been updated after the patient was seen, as this information can be updated by other users. Medical History Elevated hemoglobin History of myocardial infarction Angina pectoris Dyspnea Hypertension HFrEF (heart failure with reduced ejection fraction) Acute dyspnea Lower extremity edema Urinary tract pain Automatic implantable cardioverter-defibrillator in situ Nonischemic cardiomyopathy Presence of external cardiac defibrillator Medical non-compliance Tobacco use Elevated troponin Coronary artery disease Hyperlipidemia Renal insufficiency Surgical History History of cardiac catheterization Family History Other Diabetes Family history of acute congestive heart failure Family history of hyperlipidemia Family history of hypertension Family history of myocardial infarction Social History (Updated 09/16/24 @ 01:44 by Angela Gonzalez RN) Smoking Status: Never smoker years smoked: 15 alcohol intake: current substance use type: denies use current occupational status: employed Travel in the last 8 weeks: None Have you lived/traveled outside US in past 30 days?: No Contact w/someone who lives/traveled outside US past 30 days?: No Exposure to someone with infectious disease in past 14 days?: No Do you have a fever (greater than 100.4 F or 38 C)?: No Have you tested positive for COVID-19: No Exposed to someone with COVID-19 in past 14 days?: No Do you have a sore throat?: No Do you have a cough?: No Do you have any weakness?: No Are you experiencing any nausea/vomitting?: No Do you have any diarrhea?: No Are you experiencing any unusual bleeding?: No Do you have any muscle aches/pain?: No Do you have any abdominal pain?: No Are you experiencing loss of taste or smell?: No Review of Systems Review of Systems Review of systems:: pertinent systems reviewed and negative unless documented below *Cardiovascular Cardiovascular: Reports chest pain, Reports dyspnea and Reports dyspnea on exertion *Respiratory Respiratory: Reports dyspnea and Reports dyspnea on exertion *Neurologic Neurologic: Reports system reviewed and no additional complaints, except as documented Exam Data for Last 24 hours Vital signs and Labs for Last 24 Hours: Temp Pulse Resp BP Pulse Ox O2 Del Method 97.8 F 68 15 129/65 98 Room Air 09/16/24 07:32 09/16/24 07:32 09/16/24 07:32 09/16/24 07:32 09/16/24 07:32 09/16/24 07:32 Laboratory Results - last 24 hr 09/15/24 00:00: WBC 12.8 H, RBC 4.73, Hgb 16.1, Hct 44.9, MCV 94.9 H, MCH 34.0 H, MCHC 35.9 H, RDW 12.7, Plt Count 261, MPV 10.7 H, Neut % (Auto) 57.0, Lymph % (Auto) 33.2, Lane % (Auto) 7.8, Eos % (Auto) 1.5, Baso % (Auto) 0.3, Neut # (Auto) 7.3, Lymph # (Auto) 4.3, Lane # (Auto) 1.0, Eos # (Auto) 0.2, Baso # (Auto) 0.0 09/16/24 00:00: PT 12.3 H, INR 1.13 H, D-Dimer < 0.25, Sodium 137, Potassium 3.8, Chloride 106, Carbon Dioxide 24, Anion Gap 10.8, BUN 25 H, Creatinine 1.80 H, Estimated Creat Clear 56, Estimated GFR 41 L, Est GFR ( Amer) 50 L, Glucose 89, Calcium 10.1, Total Bilirubin 1.2, AST 34, ALT 41, Alkaline Phosphatase 107, Troponin I 0.02, NT-Pro-B Natriuret Pep 3230 H, Total Protein 7.5, Albumin 4.7, Globulin 2.8, Albumin/Globulin Ratio 1.7 09/16/24 02:32: Troponin I 0.02 09/16/24 06:03: WBC 12.3 H, RBC 4.54 L, Hgb 15.5, Hct 43.2, MCV 95.2 H, MCH 34.1 H, MCHC 35.9 H, RDW 12.9, Plt Count 242, MPV 10.7 H, Neut % (Auto) 51.1, Lymph % (Auto) 39.0, Lane % (Auto) 7.5, Eos % (Auto) 1.8, Baso % (Auto) 0.4, Neut # (Auto) 6.3, Lymph # (Auto) 4.8 H, Lane # (Auto) 0.9, Eos # (Auto) 0.2, Baso # (Auto) 0.1, Sodium 138, Potassium 4.1, Chloride 106, Carbon Dioxide 22, Anion Gap 14.1, BUN 24 H, Creatinine 1.80 H, Estimated Creat Clear 55, Estimated GFR 41 L, Est GFR ( Amer) 50 L, Glucose 86, Calcium 9.7, Troponin I 0.02 I & O for Last 24 hours: Intake & Output 09/13/24 09/14/24 09/15/24 09/16/24 11:59 11:59 11:59 11:59 Weight 296 lb 11.875 oz Constitutional Constitutional: mild distress *Routine Respiratory Exam Respiratory: Present decreased breath sounds; Absent rales or wheezes *Routine Cardiovascular Exam Cardiovascular: Present RRR; Absent murmur, gallop or rubs *Routine Extremities Exam Extremities: Present edema Meds Home Medications and Allergies Home Medications ?Medication ?Instructions ?Recorded ?Confirmed ?Type doxazosin 4 mg tablet 4 mg PO HS 07/07/24 09/16/24 History rivaroxaban 15 mg tablet (Xarelto) 15 mg PO DAILY #30 tabs 07/16/24 09/16/24 Rx potassium chloride 20 mEq 40 meq PO BID 08/04/24 09/16/24 History tablet,extended release(part/cryst) (Klor-Con M) eplerenone 50 mg tablet 50 mg PO DAILY #90 tabs 08/06/24 09/16/24 Rx sacubitril 97 mg-valsartan 103 mg 1 tab PO BID #60 tabs 08/06/24 09/16/24 Rx tablet (Entresto) ranolazine 500 mg tablet,extended 500 mg PO BID #60 tabs 08/17/24 09/16/24 Rx release,12 hr allopurinol 100 mg tablet 100 mg PO DAILY 09/15/24 09/16/24 History ergocalciferol (vitamin D2) 1,250 1,250 mcg PO WEEKLY 09/15/24 09/16/24 History mcg (50,000 unit) capsule ezetimibe 10 mg tablet 10 mg PO DAILY 09/15/24 09/16/24 History magnesium oxide 400 mg (241.3 mg 400 mg PO DAILY 09/15/24 09/16/24 History magnesium) tablet varenicline tartrate 0.5 mg (11)-1 See Rx Instructions PO PER PKG DIR 09/15/24 09/16/24 Rx mg (42) tablets in a dose pack #53 tabs (Chantix Starting Month Box) varenicline tartrate 1 mg tablet 1 mg PO BID 12 weeks #168 tabs 09/15/24 09/16/24 Rx (Chantix) atorvastatin 40 mg tablet 40 mg PO HS 09/16/24 09/16/24 History carvedilol 25 mg tablet 50 mg PO BID 09/16/24 09/16/24 History torsemide 100 mg tablet 100 mg PO MOWEFR 09/16/24 09/16/24 History New Prescriptions to Start Prescriptions: Allergies Allergy/AdvReac Type Severity Reaction Status Date / Time spironolactone (From AdvReac Severe Verified 09/15/24 09:19 Aldactone) Assessment and Plan *Assessment and plan (1) Angina at rest: Status: Acute Category: Medical Code(s): I20.89 - Other forms of angina pectoris (2) Abnormal stress test: Status: Acute Category: Medical Code(s): R94.39 - Abnormal result of other cardiovascular function study (3) CKD (chronic kidney disease): Status: Acute Qualifiers: Chronic kidney disease stage: unspecified stage Qualified Code(s): N18.9 - Chronic kidney disease, unspecified Category: Medical Code(s): N18.9 - Chronic kidney disease, unspecified (4) HFrEF (heart failure with reduced ejection fraction): Status: Acute Category: Medical Code(s): I50.20 - Unspecified systolic (congestive) heart failure (5) Automatic implantable cardioverter-defibrillator in situ: Status: Acute Category: Medical Code(s): Z95.810 - Presence of automatic (implantable) cardiac defibrillator (6) Nonischemic cardiomyopathy: Status: Acute Category: Medical Code(s): I42.8 - Other cardiomyopathies (7) Nonsustained ventricular tachycardia: Status: Acute Category: Medical Code(s): I47.29 - Other ventricular tachycardia (8) Tobacco use: Status: Chronic Category: Social Hx Code(s): Z72.0 - Tobacco use (9) Hyperlipidemia: Status: Chronic Qualifiers: Hyperlipidemia type: unspecified Qualified Code(s): E78.5 - Hyperlipidemia, unspecified Category: Medical Code(s): E78.5 - Hyperlipidemia, unspecified (10) Coronary artery disease: Status: Acute Qualifiers: Associated angina: with other forms of angina Coronary Disease-Associated Artery/Lesion type: [place] artery [place] vs. transplanted heart: [place] heart Qualified Code(s): I25.118 - Atherosclerotic heart disease of [place] coronary artery with other forms of angina pectoris Category: Medical Code(s): I25.10 - Atherosclerotic heart disease of [place] coronary artery without angina pectoris Plan 1. Unstable angina/ACS with recent abnormal stress test -on coreg, ranexa with HEART score of 5 -[facility] today 2. HFrEF/Non-ischemic Cardiomyopathy with AICD -secondary to HTN based on cath in 2021 -cautious diuretics -Continue atorvastatin and ezetimibe 3. CKD -Cr 1.8 -follows Nephrology in [place] -Torsemide 3 days weekly, eplerenone daily 4. HTN -continue carvedilol, doxazosin, Entresto 5. Paroxysmal atrial fibrillation -Hold Xarelto for cardiac cath -0% AF burden on recent device interrogation over the last year [facility] shows normal coronaries and LVEDP. Will give IV diuretic today Resume other home meds. Monitor overnight with plans for discharge home in AM if symptoms improved.
--- NOTE | 2024-09-16 08:49 | IR_ITS ---
APPROVED REPORT Patient Location: Inpatient Sifting Operator: Jose Alfredo Jaramillo, RT (R) PROCEDURES Left heart catheterization Selective coronary angiogram INDICATION Cardiomyopathy ejection fraction 17%, Informed consent was obtained prior to the procedure. COMPLICATIONS NONE Estimated Blood Loss: LESS THAN 10 ML TECHNIQUE One percent lidocaine was used to anesthetize the right groin. The right femoral artery was accessed via the Seldinger technique. A 4-Russian sheath was placed in the right femoral artery. The JL-4 and JR-4 catheter was also used to perform left heart catheterization left ventriculogram and selective coronary angiogram. At the end of the procedure the patient was transferred to the post-op holding area in stable condition for arterial sheath removal. ANGIOGRAPHIC RESULTS The left main artery Normal The left anterior descending artery Normal The circumflex artery Normal The right coronary artery Dominant normal The MATHEW ventriculogram reveals Not performed The left ventricular end-diastolic pressure 10 mmHg IMPRESSION Normal coronary arteries Normal LVEDP PLAN 1. Evaluation for amyloidosis 2. Standard medical therapy for cardiomyopathy Electronically signed by : Esau Aguirre MD 09/16/2024 13:26:35
--- NOTE | 2024-09-16 08:51 | HMH.PHAINT1 ---
Pharmacy Intervention Comments: HOME MEDICATION LIST VERIFIED USING LIST FROM OUTPATIENT PHARMACY AND PT INTERVIEW
[2024-09-16 09:27] LABS: Adenovirus,PCR Not Detected (NotDetected); Bordetella Pertussis Not Detected (NotDetected); Chlamydophila Pneumoniae, PCR Not Detected (NotDetected); Coronavirus 19, PCR Not Detected (NotDetected); Coronavirus 229E Not Detected (NotDetected); Coronavirus NL63 Not Detected (NotDetected); Coronavirus OC43 Not Detected (NotDetected); Coronovirus HKU1,PCR Not Detected (NotDetected); Human Metapneumovirus Not Detected (NotDetected); Influenza A, PCR Not Detected (NotDetected); Influenza AH1, 2009 Not Detected (NotDetected); Influenza AH1, PCR Not Detected (NotDetected); Influenza AH3,PCR Not Detected (NotDetected); Influenza B, PCR Not Detected (NotDetected); Mycoplasma Pneumoniae, PCR Not Detected (NotDetected); Parainfluenza 1, PCR Not Detected (NotDetected); Parainfluenza 2, PCR Not Detected (NotDetected); Parainfluenza 3, PCR Not Detected (NotDetected); Parainfluenza 4, PCR Not Detected (NotDetected); Respiratory Syncytial Virus Not Detected (NotDetected); Rhinovirus/Enterovirus Not Detected (NotDetected)
[2024-09-16] MEDS: 0.9 % SODIUM CHLORIDE 500 ML 25 ML IV (12:59)
[2024-09-16] MEDS: HEPARIN 1,000 UNITS/500ML NS (CATH LAB) 3000 UNIT IV (12:59)
[2024-09-16] MEDS: LIDOCAINE 1% 10ML MDV 20 ML IJ (12:59)
[2024-09-16] MEDS: diphenhydrAMINE 50MG/ML VIAL 50 MG IV (12:59)
[2024-09-16] MEDS: FENTANYL 100MCG/2ML VIAL 50 MCG IV (13:25)
[2024-09-16] MEDS: MIDAZOLAM HCL 1MG/ML 5ML VIAL 1 MG IV (13:25)
[2024-09-16] MEDS: IOPAMIDOL-370 (76%);100ML BOTTLE 25 ML IV (13:51)
[2024-09-16] MEDS: BUMETANIDE 1MG/4ML VIAL 2 MG IV (16:30)
--- NOTE | 2024-09-16 17:28 | PC.NURSE ---
patient is a/ox4 and remains on RA. femoral access site dressing upon arrival to the floor from [employer] was sanguineous, dressing changed with sterile gauze and tegaderm. patient has not had any c/o pain. tolerating cardiac diet well. patient HOB raised 15 degrees at 1545, no femoral drainage, no c/o pain, no hematoma noted. patient stood up at 1715 to void. patient ambulated well independently. patient is now sitting on the side of bed eating dinner. no c/o pain at this time, call light within reach
[2024-09-16] MEDS: CARVEDILOL 25MG TABLET 50 MG PO (20:25)
[2024-09-16] MEDS: DOXAZOSIN 4MG TAB 4 MG PO (20:25)
[2024-09-16] MEDS: ATORVASTATIN 40MG TABLET 40 MG PO (20:25)
[2024-09-17] VITALS: BP 134/73; PULSE 69; PULSE 80; RESP 16; TEMP 36.7; O2SAT 99
[2024-09-17 04:00] VITALS: BP 116/68; PULSE 58; PULSE 70; RESP 16; TEMP 36.8; O2SAT 97; BMI 32.1
--- NOTE | 2024-09-17 04:02 | PC.NURSE ---
Pt. is alert and orientated x 4. Pt. on room air. Pt. s/p heart cath. Left femoral cath site with dressing clean, dry, intact. Pt. has no c/o chest pain or left groin pain. No hematoma to left groin site. site soft. pulses strong and equal. Pt. tolerated PO solid food intake. Pt. voided per urinal overnight. VSS, personal items and call hernandez in reach.
[2024-09-17 07:07] LABS: Basophils % 0.3 % (0.1-2.0); Eosinophils # 0.1 K/mm3 (0.0-0.4); Eosinophils % 1.2 % (0.1-12.0); Hemoglobin 15.3 g/dL (14.1-18.0); Lymphocytes % 28.8 % (10-50); Mean Corpuscular HGB Conc 35.6 g/dL (31.8-35.4); Mean Corpuscular Hemoglobin 34.2 pg (27.0-31.2); Mean Corpuscular Volume 96.2 fl (80-94); Mean Platelet Volume 10.8 fl (7.4-10.4); Monocytes # 0.7 K/mm3 (0.1-1.0); Monocytes % 7.1 % (1.7-9.3); Neutrophils # 6.5 K/mm3 (1.8-7.8); Neutrophils % 62.3 % (37.0-80.0); Platelet Count 246 K/mm3 (142-424); Red Blood Count 4.47 M/mm3 (4.60-6.20); Red Cell Distribution Width 12.8 % (11.5-17.5); White Blood Count 10.4 K/mm3 (4.8-10.8)
[2024-09-17 07:39] LABS: Anion Gap 10.9 mEq/L (5-15); Blood Urea Nitrogen 25 mg/dl (9-20); Calcium 9.2 mg/dl (8.4-10.2); Carbon Dioxide 22 mmol/L (22.0-30.0); Chloride 108 mmol/L (98-107); Creatinine Clearance Estimated 74 mL/min (50-200); Estimated Glomerular Filt Rate 39 ml/min (>60); GFR (African American) 47 ML/MIN (>60); Glucose 96 mg/dl (74-100); Potassium 3.9 mmoL/L (3.5-5.1); Sodium 137 mmol/L (136-145)
--- NOTE | 2024-09-17 07:55 | P.PN_ITS ---
Subjective Subjective Date: 09/17/24 Time: 07:55 Principal diagnosis: Angina Interval history: 44 yo BM in bed in [facility] results reviewed Feeling better today and ready to go home Exam Data for Last 24 hours Vital signs and Labs for Last 24 Hours: Temp Pulse Resp BP Pulse Ox O2 Del Method 98.2 F 58 L 16 116/68 97 Room Air 09/17/24 04:00 09/17/24 04:00 09/17/24 04:00 09/17/24 04:00 09/17/24 04:00 09/17/24 06:45 Laboratory Results - last 24 hr 09/16/24 09:20: Chlamy pneumoniae PCR Not detected, Adenovirus (PCR) Not detected, B. pertussis DNA (PCR) Not detected, Coronavirus OC43 (PCR) Not detected, Coronavirus HKU1 (PCR) Not detected, Coronavirus 229E (PCR) Not detected, SARS-CoV-2 (PCR) Not detected, Coronavirus NL63 (PCR) Not detected, Human Metapneumovir PCR Not detected, Influenza A (H1) PCR Not detected, Influ A (H1N1/09) PCR Not detected, Influenza A (H3) PCR Not detected, Influenza Type A (PCR) Not detected, Influenza Type B (PCR) Not detected, M. pneumoniae (PCR) Not detected, Parainfluenza 1 (PCR) Not detected, Parainfluenza 2 (PCR) Not det ected, Parainfluenza 3 (PCR) Not detected, Parainfluenza 4 (PCR) Not detected, RSV (PCR) Not detected, Entero/Rhino (PCR) Not detected 09/17/24 06:30: WBC 10.4, RBC 4.47 L, Hgb 15.3, Hct 43.0, MCV 96.2 H, MCH 34.2 H , MCHC 35.6 H, RDW 12.8, Plt Count 246, MPV 10.8 H, Neut % (Auto) 62.3, Lymph % (Auto) 28.8, [place] % (Auto) 7.1, Eos % (Auto) 1.2, Baso % (Auto) 0.3, Neut # (Auto) 6.5, Lymph # (Auto) 3.0, [place] # (Auto) 0.7, Eos # (Auto) 0.1, Baso # (Auto) 0.0, Sodium 137, Potassium 3.9, Chloride 108 H, Carbon Dioxide 22, Anion Gap 10.9, BUN 25 H, Creatinine 1.90 H, Estimated Creat Clear 74, Estimated GFR 39 L, Est GFR ( Amer) 47 L, Glucose 96, Calcium 9.2 I & O for Last 24 hours: Intake & Output 09/14/24 09/15/24 09/16/24 09/17/24 11:59 11:59 11:59 11:59 Intake Total 840 / 840 Output Total 0 / 0 725 / 725 Balance 0 / 0 115 / 115 Weight 296 lb 11.875 oz 229 lb 11.2 oz Constitutional Constitutional: no acute distress *Routine Respiratory Exam Respiratory: Present CTA bilaterally *Routine Cardiovascular Exam Cardiovascular: Present RRR Progress Note: A&P Assessment and plan (1) Angina at rest: Status: Acute (2) Abnormal stress test: Status: Acute (3) CKD (chronic kidney disease): Status: Acute (4) HFrEF (heart failure with reduced ejection fraction): Status: Acute (5) Automatic implantable cardioverter-defibrillator in situ: Status: Acute (6) Nonischemic cardiomyopathy: Status: Acute (7) Nonsustained ventricular tachycardia: Status: Acute (8) Tobacco use: Status: Chronic (9) Hyperlipidemia: Status: Chronic (10) Coronary artery disease: Status: Acute (11) Acute on chronic HFrEF (heart failure with reduced ejection fraction): Status: Acute (12) Hypertensive heart disease: Status: Chronic (13) Class 1 obesity: Status: Chronic (14) Renal insufficiency: Status: Acute (15) Elevated troponin: Status: Resolved (16) Elevated brain natriuretic peptide (BNP) level: Status: Resolved Assessment and Plan Assessment and Plan for All Diagnoses:: 1. Unstable angina/ACS with recent abnormal stress test -on coreg, ranexa with HEART score of 5 -[facility] showed normal coronaries and LVEDP -OK to stop ranexa -resume coreg, entresto, eplerenone and torsemide 2. HFrEF/Non-ischemic Cardiomyopathy with AICD -secondary to HTN based on cath in 2021 -cautious diuretics -Continue atorvastatin and ezetimibe 3. CKD -Cr 1.8 at baseline with slight increase to 1.9 post cath -follows Nephrology in [place] -Torsemide 3 days weekly, eplerenone daily 4. HTN -continue carvedilol, doxazosin, Entresto 5. Paroxysmal atrial fibrillation -Hold Xarelto for cardiac cath -0% AF burden on recent device interrogation over the last year Clinically stable from cardiac standpoint for discharge. Will repeat Bumex 1 mg IV today. Home medication recommendations: Entresto 97/103 twice daily Xarelto 15 mg daily Carvedilol 50 mg twice daily Atorvastatin 40 mg daily Ezetimibe 10 mg daily Eplerenone 50 mg daily Torsemide 100 mg on Saturday and Saturday Potassium 40 mill equivalents daily Magnesium oxide 400 mg daily Discontinue ranolazine Follow-up in our office in 1 to 2 weeks with Alie Yun APRN to review medications and consider scaling back his medications.
[2024-09-17 08:00] VITALS: BP 126/88; PULSE 70; PULSE 74; RESP 16; TEMP 36.8; O2SAT 97
[2024-09-17] MEDS: MAGNESIUM OXIDE 400MG TABLET 400 MG PO (08:34)
[2024-09-17] MEDS: EZETIMIBE 10MG TABLET 10 MG PO (08:34)
[2024-09-17] MEDS: POTASSIUM CHLORIDE 20MEQ TAB 40 MEQ PO (08:34)
[2024-09-17] MEDS: ERGOCALCIFEROL 50,000 UNITS (1.25MG) CAPSULE 50000 UNIT PO (08:34)
[2024-09-17] MEDS: ALLOPURINOL 100MG TABLET 100 MG PO (08:34)
[2024-09-17] MEDS: SACUBITRIL/VALSARTAN 24-26MG TABLET 4 EACH PO (08:34)
[2024-09-17] MEDS: BUMETANIDE 1MG/4ML VIAL 1 MG IV (08:34)
[2024-09-17] MEDS: CARVEDILOL 25MG TABLET 50 MG PO (08:34)
--- NOTE | 2024-09-17 08:53 | HMH.PHAINT1 ---
Pharmacy Intervention Comments: HOME MEDICATION LIST VERIFIED USING LIST FROM OUTPATIENT PHARMACY
[2024-09-17 12:00] VITALS: BP 142/81; PULSE 67; RESP 17; TEMP 36.6; O2SAT 98
--- NOTE | 2024-09-17 12:35 | EXP.DC.SUM ---
General Admission date:: 09/16/24 HPI HPI HPI: This is a 44-year-old -[place] male who has a past medical history significant for angina, hypertension, systolic dysfunction congestive heart failure, nonischemic cardiomyopathy, coronary artery disease, hyperlipidemia, chronic kidney disease, and obesity who presents with a chief complaint of chest pain. Due to patient's symptoms, he presented to the emergency room for evaluation. While in the emergency room, chest x-ray was negative for any acute cardiopulmonary process. And patient's EKG was consistent with findings from previous EKG obtained yesterday morning and had primary pellet press operator office. This case was discussed with pellet press operator on-call who recommended admission for further management. Due to these recommendations, patient has been admitted for further management. During my evaluation patient, patient states he was evaluated by his pellet press operator who recommended left heart cath yesterday. There was a plan to perform this however patient started to experience midsternal to left chest wall chest pain, described as pressure, rated 5 out of 10, coupled with lightheadedness/nausea, it improved after patient received aspirin and nitro. Patient has known severe systolic dysfunction congestive heart failure. He reports in the past his EF was around 10 to 12%. Most recent estimation reveals an EF of 17%. Patient is currently denying any chest pain but reports gas feeling, PND, orthopnea, swelling of the bilateral lower extremities, dyspnea with exertion, fever, chills, rigors, or diarrhea. Additional pertinent vitals obtained include a BNP of 25, creatinine 1.8, GFR 41, BNP of 3230, and troponin 0.02. Hospital Course Hospital Course Hospital Course: Jayce Dolan is a 44-year-old male who presented with chest pain and was admitted for suspected unstable angina. #Chest pain #HFrEF exacerbation ? Presented with midsternal chest pains, with an abnormal outpatient stress test. ? Cardiology consulted, s/p [facility] with normal coronary arteries. ? ECHO July 2023 shows LVEF 10 to 15%. ? Recommended discontinuing ranolazine and diuresing with IV Bumex. ? Will continue GDMT with carvedilol, Entresto, Eplerenone. ? Will follow-up with cardiology within 2 weeks for further evaluation and management. #Hypertension ? Resume home regimen. #Paroxysmal A-fib ? Continue Coreg, Xarelto. Currently rate controlled. Exam Data for Last 24 hours Vital signs and Labs for Last 24 Hours: Temp Pulse Resp BP Pulse Ox O2 Del Method 98.3 F 74 16 126/88 97 Room Air 09/17/24 08:00 09/17/24 08:00 09/17/24 08:00 09/17/24 08:00 09/17/24 08:00 09/17/24 12:26 Laboratory Results - last 24 hr 09/17/24 06:30: WBC 10.4, RBC 4.47 L, Hgb 15.3, Hct 43.0, MCV 96.2 H, MCH 34.2 H, MCHC 35.6 H, RDW 12.8, Plt Count 246, MPV 10.8 H, Neut % (Auto) 62.3, Lymph % (Auto) 28.8, [place] % (Auto) 7.1, Eos % (Auto) 1.2, Baso % (Auto) 0.3, Neut # (Auto) 6.5, Lymph # (Auto) 3.0, [place] # (Auto) 0.7, Eos # (Auto) 0.1, Baso # (Auto) 0.0, Sodium 137, Potassium 3.9, Chloride 108 H, Carbon Dioxide 22, Anion Gap 10.9, BUN 25 H, Creatinine 1.90 H, Estimated Creat Clear 74, Estimated GFR 39 L, Est GFR ( Amer) 47 L, Glucose 96, Calcium 9.2 I & O for Last 24 hours: Intake & Output 09/14/24 09/15/24 09/16/24 09/17/24 23:59 23:59 23:59 23:59 Intake Total 240 / 840 840 / 840 Output Total 725 / 725 0 / 0 Balance -485 / 115 840 / 840 Weight 135.171 kg 134.6 kg 104.19 kg Constitutional Constitutional: no acute distress and obese *Routine HEENT Exam Head: Present normocephalic Eye: Present EOMI and PERRL ENT: Present mucous membranes moist *Routine Neck Exam Neck: Present supple; Absent lymphadenopathy *Routine Respiratory Exam Respiratory: Present CTA bilaterally *Routine Cardiovascular Exam Cardiovascular: Present RRR *Routine Abdominal Exam Abdominal: Present soft and normoactive bowel sounds; Absent tenderness *Routine Extremities Exam Extremities: Absent cyanosis, clubbing or edema *Routine Skin Exam Skin: Present warm; Absent rash *Routine Neurological Exam Neurological: Present alert and oriented X3 Results Data Completed and Pending Labs on day of discharge: Labs from last 24 hours 09/17/24 06:30 WBC 10.4 RBC 4.47 L Hgb 15.3 Hct 43.0 MCV 96.2 H MCH 34.2 H MCHC 35.6 H RDW 12.8 Plt Count 246 MPV 10.8 H Neut % (Auto) 62.3 Lymph % (Auto) 28.8 [place] % (Auto) 7.1 Eos % (Auto) 1.2 Baso % (Auto) 0.3 Neut # (Auto) 6.5 Lymph # (Auto) 3.0 [place] # (Auto) 0.7 Eos # (Auto) 0.1 Baso # (Auto) 0.0 Sodium 137 Potassium 3.9 Chloride 108 H Carbon Dioxide 22 Anion Gap 10.9 BUN 25 H Creatinine 1.90 H Estimated Creat Clear 74 Estimated GFR 39 L Est GFR ( Amer) 47 L Glucose 96 Calcium 9.2 DS: Diagnosis Discharge Diagnosis (1) Angina at rest: Status: Acute Code(s): I20.89 - Other forms of angina pectoris (2) Abnormal stress test: Status: Acute Code(s): R94.39 - Abnormal result of other cardiovascular function study (3) CKD (chronic kidney disease): Status: Acute Code(s): N18.9 - Chronic kidney disease, unspecified Qualifiers: Chronic kidney disease stage: unspecified stage Qualified Code(s): N18.9 - Chronic kidney disease, unspecified (4) HFrEF (heart failure with reduced ejection fraction): Status: Acute Code(s): I50.20 - Unspecified systolic (congestive) heart failure (5) Automatic implantable cardioverter-defibrillator in situ: Status: Acute Code(s): Z95.810 - Presence of automatic (implantable) cardiac defibrillator (6) Nonischemic cardiomyopathy: Status: Acute Code(s): I42.8 - Other cardiomyopathies (7) Nonsustained ventricular tachycardia: Status: Acute Code(s): I47.29 - Other ventricular tachycardia (8) Tobacco use: Status: Chronic Code(s): Z72.0 - Tobacco use (9) Hyperlipidemia: Status: Chronic Code(s): E78.5 - Hyperlipidemia, unspecified Qualifiers: Hyperlipidemia type: unspecified Qualified Code(s): E78.5 - Hyperlipidemia, unspecified (10) Coronary artery disease: Status: Acute Code(s): I25.10 - Atherosclerotic heart disease of [place] coronary artery without angina pectoris Qualifiers: Associated angina: with other forms of angina Coronary Disease-Associated Artery/Lesion type: [place] artery [place] vs. transplanted heart: [place] heart Qualified Code(s): I25.118 - Atherosclerotic heart disease of [place] coronary artery with other forms of angina pectoris (11) Acute on chronic HFrEF (heart failure with reduced ejection fraction): Status: Acute Code(s): I50.23 - Acute on chronic systolic (congestive) heart failure (12) Hypertensive heart disease: Status: Chronic Code(s): I11.9 - Hypertensive heart disease without heart failure Qualifiers: Heart failure chronicity: acute on chronic Heart failure presence: with heart failure Heart failure type: systolic Qualified Code(s): I11.0 - Hypertensive heart disease with heart failure; I50.23 - Acute on chronic systolic (congestive) heart failure (13) Class 1 obesity: Status: Chronic Code(s): E66.811 - Obesity, class 1 (14) Renal insufficiency: Status: Acute Code(s): N28.9 - Disorder of kidney and ureter, unspecified Meds Home Medications and Allergies Home Medications ?Medication ?Instructions ?Recorded ?Confirmed ?Type doxazosin 4 mg tablet 4 mg PO HS 07/07/24 09/16/24 History rivaroxaban 15 mg tablet (Xarelto) 15 mg PO DAILY #30 tabs 07/16/24 09/16/24 Rx eplerenone 50 mg tablet 50 mg PO DAILY #90 tabs 08/06/24 09/16/24 Rx sacubitril 97 mg-valsartan 103 mg 1 tab PO BID #60 tabs 08/06/24 09/16/24 Rx tablet (Entresto) allopurinol 100 mg tablet 100 mg PO DAILY 09/15/24 09/16/24 History ergocalciferol (vitamin D2) 1,250 1,250 mcg PO WEEKLY 09/15/24 09/16/24 History mcg (50,000 unit) capsule ezetimibe 10 mg tablet 10 mg PO DAILY 09/15/24 09/16/24 History magnesium oxide 400 mg (241.3 mg 400 mg PO DAILY 09/15/24 09/16/24 History magnesium) tablet varenicline tartrate 0.5 mg (11)-1 See Rx Instructions PO PER PKG DIR 09/15/24 09/16/24 Rx mg (42) tablets in a dose pack #53 tabs (Chantix Starting ) varenicline tartrate 1 mg tablet 1 mg PO BID 12 weeks #168 tabs 09/15/24 09/16/24 Rx (Chantix) atorvastatin 40 mg tablet 40 mg PO HS 09/16/24 09/16/24 History carvedilol 25 mg tablet 50 mg PO BID 09/16/24 09/16/24 History torsemide 100 mg tablet 100 mg PO MOWEFR 09/16/24 09/16/24 History potassium chloride 20 mEq 40 meq (2 x 20 mEq) PO BID 30 days 09/17/24 Rx tablet,extended #120 tabs release(part/cryst) (Klor-Con M) New Prescriptions to Start Prescriptions: potassium chloride [Klor-Con M20] Eduardo Villalobos Allergies Allergy/AdvReac Type Severity Reaction Status Date / Time spironolactone (From AdvReac Severe Verified 09/15/24 09:19 Aldactone) Discharge Plan Disposition Patient Disposition: Home, Self-Care Condition: Fair Follow up Plan Follow up with: Esau Aguirre MD [Staff Physician] - 10/01/24 2:45 pm Prescriptions/Medication Reconciliation: Continued doxazosin 4 mg tablet 4 mg PO HS allopurinol 100 mg tablet 100 mg PO DAILY magnesium oxide 400 mg (241.3 mg magnesium) tablet 400 mg PO DAILY ergocalciferol (vitamin D2) 1,250 mcg (50,000 unit) capsule 1,250 mcg PO WEEKLY ezetimibe 10 mg tablet 10 mg PO DAILY varenicline tartrate [Chantix] 1 mg tablet 1 mg PO BID 84 Days Qty: 168 0RF varenicline tartrate [Chantix Starting Month Box] 0.5 mg (11)- 1 mg (42) tablets,dose pack See Rx Instructions PO PER PKG DIR Qty: 53 0RF Rx Instructions: PO PER PKG DIR Xarelto 15 mg tablet 15 mg PO DAILY Qty: 30 2RF Rx Instructions: must administer with evening meal eplerenone 50 mg tablet 50 mg PO DAILY Qty: 90 3RF sacubitril-valsartan [Entresto] 97-103 mg tablet 1 tab PO BID Qty: 60 2RF atorvastatin 40 mg tablet 40 mg PO HS carvedilol 25 mg tablet 50 mg PO BID torsemide 100 mg tablet 100 mg PO MOWEFR potassium chloride [Klor-Con M20] 20 mEq tablet,ER particles/crystals 40 meq PO BID 30 Days Qty: 120 0RF Discontinued ranolazine 500 mg tablet extended release 12 hr 500 mg PO BID Qty: 60 2RF Problem Reconciliation Problems Reviewed?: Yes Patient Discharge Instructions Patient Instructions: DI for Chest Pain Print Language: [place] Providers Primary Care Provider: Provider,Referral Admit Provider: Jayce Ling Attending Provider: Jayce Ling
--- NOTE | 2024-09-18 10:37 | SW/DCPLANNER ---
Spoke with patient on the phone. Patient stated that he is doing well. Patient stated that he is aware of his upcoming appointment. Patient stated that he has no concerns or questions at this time. They kept patient on the medicine he was on and didnt order any new. Elier De La Rosa
== END 2024-09-17 15:32 | disposition home or self-care (01) ==
LOC: ER 09-16 01:04 → 2ND 09-16 01:18
PROVIDERS: Internal Medicine; Nurse Practitioner Family; Student in an Organized Health Care Education/Training Program; Admitting Provider Internal Medicine Adolescent Medicine; Emergency Provider Emergency Medicine; Visit Provider Internal Medicine Adolescent Medicine
DX: I21.4 Non-ST elevation (NSTEMI) myocardial infarction (principal); I42.8 Other cardiomyopathies; F17.210 Nicotine dependence, cigarettes, uncomplicated; I25.10 Atherosclerotic heart disease of native coronary artery without angina pectoris; I50.42 Chronic combined systolic (congestive) and diastolic (congestive) heart failure; I12.0 Hypertensive chronic kidney disease with stage 5 chronic kidney disease or end stage renal disease; N18.30 Chronic kidney disease, stage 3 unspecified; I48.0 Paroxysmal atrial fibrillation; Z95.810 Presence of automatic (implantable) cardiac defibrillator; Z79.899 Other long term (current) drug therapy; Z79.01 Long term (current) use of anticoagulants; I47.29 Other ventricular tachycardia; Z82.49 Family history of ischemic heart disease and other diseases of the circulatory system; Z88.8 Allergy status to other drugs, medicaments and biological substances; E66.9 Obesity, unspecified
CPT/HCPCS: 36415; 71046; 80048; 80053; 83880; 84484; 85025; 85378; 85610; 87633; 93005; 93454; 99152; 99291; C1725; C1769; G0378; J1200; J1644; J1650; J1939; J2250; J3010; Q9967

== ENCOUNTER 2024-11-09 09:04 | Outpatient (CLI) | payer MEDICAID, SELFPAY ==
[2024-11-09 09:57] LABS: Basophils # 0.1 K/mm3 (0-0.2); Basophils % 0.5 % (0.1-2.0); Eosinophils # 0.2 Kmm3 (0.0-0.4); Eosinophils % 1.4 % (0.1-12.0); Hematocrit 43.8 % (42.0-52.0); Hemoglobin 15.6 g/dL (14.1-18.0); Lymphocytes # 3.1 K/mm3 (0.7-4.5); Lymphocytes % 27.7 % (10-50); Mean Corpuscular HGB Conc 35.6 g/dL (31.8-35.4); Mean Corpuscular Hemoglobin 33.7 pg (27.0-31.2); Mean Corpuscular Volume 94.6 fl (80-94); Mean Platelet Volume 10.5 fl (7.4-10.4); Monocytes # 0.8 K/mm3 (0.1-1.0); Monocytes % 6.9 % (1.7-9.3); Neutrophils % 63.1 % (37.0-80.0); Nucleated Red Blood Cells # 0 10^3/uL; Nucleated Red Blood Cells % 0 %; Platelet Count 326 K/mm3 (142-424); Red Blood Count 4.63 M/mm3 (4.60-6.20); Red Cell Distribution Width-SD 45.1 fL
[2024-11-09 10:27] LABS: Alanine Aminotransferase 51 U/L (12-78); Albumin Level 4.9 g/dl (3.5-5.0); Alkaline Phosphatase 112 U/L (38-126); Anion Gap 18.6 mEq/L (5-15); Aspartate Amino Transferase 44 U/L (17-59); Bilirubin,Direct 0.3 mg/dl (0.0-0.4); Bilirubin,Indirect 0.4 mg/dL (0.0-0.9); Bilirubin,Total 0.7 mg/dl (0.2-1.3); Bilirubin,Unconjugated 0.4 mg/dL (0.0-1.1); Blood Urea Nitrogen 18 mg/dl (9-20); Carbon Dioxide 22 mmol/L (22.0-30.0); Chloride 104 mmol/L (98-107); Chol/HDL Ratio 2.6 (1-3.5); Cholesterol 153 mg/dl (140-200); Estimated Glomerular Filt Rate 60 ml/min (>60); GFR (African American) 73 ML/MIN (>60); Glucose 104 mg/dl (74-100); HDL Cholesterol 58 mg/dl (40-60); Magnesium 1.7 mg/dl (1.6-2.3); Potassium 3.6 mmoL/L (3.5-5.1); Sodium 141 mmol/L (136-145); Total Protein,Serum 8.2 g/dl (6.3-8.2); Triglycerides 177 mg/dl (30-150); VLDL Cholesterol 35 mg/dL (0-40)
[2024-11-09 10:38] LABS: Direct LDL Cholesterol 49.39 mg/dL (100-129)
[2024-11-09 10:57] LABS: Thyroid Stimulating Hormone 2.66 uIU/mL (0.465-4.68)
[2024-11-09 10:58] LABS: Free T4 (Free Thyroxine) 0.87 ng/dl (0.78-2.19)
== END 2024-11-09 23:59 | disposition home or self-care (01) ==
LOC: LAB 09:04
PROVIDERS: PCP Physician Assistant; Visit Provider Nurse Practitioner
DX: N18.9 Chronic kidney disease, unspecified (principal); I50.42 Chronic combined systolic (congestive) and diastolic (congestive) heart failure
CPT/HCPCS: 36415; 80048; 80061; 80076; 83735; 84439; 84443; 85025